=== PATIENT | female | born 1965 | race Caucasian/White ===

== ENCOUNTER → 2016-06-24 | Outpatient (CLI) | payer OTHER ==
[~2016-06-24] MED LIST: ACET-1256 PO; BUPRTAB51 PO; CGN1 PO; CHOL100010 PO; CLOZ25TA2 PO; CLR10 PO; DEXA1TAB PO; DIVA500T3 PO; FINA5TAB4 PO; FLNIN NAE; GEMF600T3 PO; MISCTAB26 PO; OMEP20CA9 PO; POLY1POW2 PO; POTA10CA28 PO; RANI300T2 PO; VITA400C15 PO
--- NOTE | 2016-06-25 13:33 | MAMMOGRAPHY REPORT ---
BILATERAL DIGITAL SCREENING MAMMOGRAM TOMOSYNTHESIS WITH CAD: 06/24/2016 CLINICAL HISTORY: Routine screening. Patient has no complaints. TECHNIQUE: Breast tomosynthesis in addition to standard 2D mammography was performed. Current study was also evaluated with a Computer Aided Detection (CAD) system. COMPARISON: Comparison is made to exams dated: 06/24/2015 mammogram, 06/22/2013 mammogram, 06/18/2014 mammogram, 06/20/2012 mammogram, 06/18/2011 mammogram, and 06/16/2010 mammogram - [facility]. BREAST COMPOSITION: There are scattered areas of fibroglandular density in both breasts. FINDINGS: There is stable nodularity in the lateral right breast. No new suspicious mass, ibm bpm architect ural distortion or cluster of microcalcifications is seen. IMPRESSION: ACR BI-RADS CATEGORY 1: NEGATIVE There is no mammographic evidence of malignancy. A 1 year screening mammogram is recommended. The p atient will receive written notification of the results. Approximately 10% of breast cancers are not detected with mammography. A negative mammographic repor t should not delay biopsy if a clinically suggestive mass is present. Ligia Euceda M.D. ay/:06/24/2016 16:50:51 Buffing Wheel Presser: Delmis COLLINS(Yeni)(M), [facility] letter sent: Normal 1/2 BI-RADS Code: ACR BI-RADS Category 1: Negative
== END | disposition home or self-care (01) ==
LOC: C.MAMM 12:26
PROVIDERS: ATTEND Internal Medicine
DX: Z12.31 Encounter for screening mammogram for malignant neoplasm of breast (principal)

== ENCOUNTER → 2017-03-02 | Outpatient (CLI) | payer OTHER ==
[2017-03-02 12:23] LABS: HEMATOCRIT 38.2 % (37-47)
[2017-03-02 12:36] LABS: ALT/SGPT 28 U/L (12-78); BLOOD UREA NITROGEN 24 mg/dl (7-18); BUN/CREATININE RATIO 23.5 (10-20); CALCIUM 9.8 mg/dl (8.5-10.1); CARBON DIOXIDE 26 mmol/L (21-32); CHLORIDE 102 mmol/L (98-107); CHOLESTEROL 167 mg/dl (0-200); GLUCOSE 89 mg/dl (70-99); POTASSIUM 4.2 mmol/L (3.5-5.1); SODIUM 136 mmol/L (136-145); TRIGLYCERIDES 112 mg/dl (0-150); VERY LOW DENSITY LIPOPROT CALC 22 mg/dl
[2017-03-02 12:41] LABS: ESTIMATED AVERAGE GLUCOSE 128 mg/dl; HA1C FLAG Normal (Normal)
[2017-03-02 12:45] LABS: ALB/GLOB RATIO 0.9 (0.9-2); ALKALINE PHOSPHATASE 107 U/L (45-117); AST/SGOT 13 U/L (15-37); CHOLESTEROL/HDL RATIO 2.3; HDL CHOLESTEROL 72 mg/dl; LDL CHOLESTEROL CALCULATED 73 mg/dl
[2017-03-02 12:46] LABS: INSULIN FASTING 19.8 mU/L (3-25)
== END | disposition home or self-care (01) ==
LOC: C.LAB1850 10:35
PROVIDERS: ATTEND Internal Medicine Endocrinology, Diabetes & Metabolism
DX: E66.01 Morbid (severe) obesity due to excess calories (principal); E25.0 Congenital adrenogenital disorders associated with enzyme deficiency; E27.9 Disorder of adrenal gland, unspecified

== ENCOUNTER → 2017-03-30 | Outpatient (CLI) | payer OTHER ==
[~2017-03-30] MED LIST changes: +BENZ-89 PO; +CHOL1TAB76 PO; +FLUT50SP45 NAE; -GEMF600T3 PO; +GEMF600T5 PO; +VTME400 PO
== END | disposition home or self-care (01) ==
LOC: C.MAMM 10:14
PROVIDERS: ATTEND Internal Medicine Endocrinology, Diabetes & Metabolism
DX: R29.890 Loss of height (principal); Z79.52 Long term (current) use of systemic steroids

== ENCOUNTER 2017-04-30 12:03 | Emergency (ER) | payer OTHER ==
[~2017-04-30] VITALS: Ht 152.4 cm; Wt 98.1 kg
[~2017-04-30 12:03] MED LIST changes: -BENZ-89 PO; -CHOL1TAB76 PO; -FLUT50SP45 NAE; +GEMF600T3 PO; -GEMF600T5 PO; -VTME400 PO
[2017-04-30 12:15] VITALS: TEMP 36.6; Ht 152.4 cm; Wt 98.1 kg
[2017-04-30] MEDS ORDERED: ACETAMINOPHEN 500 MG TAB PO STA (12:18)
[2017-04-30] MEDS ORDERED: BENZ-89 PO (12:36)
[2017-04-30] MEDS ORDERED: CHOL1TAB76 PO (12:36)
[2017-04-30] MEDS ORDERED: FLUT50SP45 NAE (12:36)
[2017-04-30] MEDS ORDERED: VTME400 PO (12:36)
--- NOTE | 2017-04-30 12:47 | DIAGNOSTIC IMAGING REPORT ---
RIGHT ANKLE 3 VIEWS HISTORY: R ankle pain COMPARISON: None. FINDINGS: There is no fracture or dislocation. Mild soft tissue swelling. No radiopaque foreign bodies. IMPRESSION: No fracture or dislocation within the right ankle. Electronically signed by: Niko Velasco M.D. 04/30/2017 12:46 PM Dictated Date/Time: 04/30/2017 12:45 PM
[2017-04-30 13:46] VITALS: BP 147/78; PULSE 89; O2SAT 95
--- NOTE | 2017-04-30 15:25 | EMERGENCY ROOM VISIT NOTE ---
History First contact with patient: 12:13 Chief Complaint: ANKLE PAIN Stated Complaint: ANKLE PAIN History of Present Illness The patient is a 51 year old female who presents to the Emergency Room via BLS ambulance with complaints of right ankle pain after she tripped while walking on a sidewalk and twisted her ankle. She denies falling or sustaining any additional injuries, including head injury, neck pain or other extremity discomfort. She did report mild lower back pain, but is not concerned regarding this pain Weightbearing worsens her ankle pain to a 7 out of 10. She denies any pain extending into the right upper leg, knee, hip or back. She also denies any pain extending into the right foot or toes. She denies paresthesias or numbness of the right lower extremity. The patient denies any prior history of right ankle injuries. Review of Systems 10 system review was performed and was negative except for pertinent positives and negatives as indicated in history of present illness Past Medical/Surgical History Medical Problems: (1) Ac Pyelonephritis Nos (2) Acute Pancreatitis (3) Bipolar Disorder, Unspecified (4) Cerebral Palsy Nos (5) Cholecystectomy (6) Colonoscopy (7) Depression (8) Fam Hx-Cardiovas Dis Nec (9) Fam Hx-Diabetes Mellitus (10) Fam Hx-Ischem Heart Dis (11) Family Hx-Malignancy Nos (12) Gastroesophageal reflux disease (13) Hirsutism (14) Hypertension Nos (15) IRRITABLE BOWEL SYNDROME (16) Mental Retardation Nos (17) Schizophrenia Nec-Unspec (18) Unsp Gastritis & Gastroduodenitis W/O Mentn Hemorg (19) Urin Tract Infection Nos Family History FH: diabetes FH: heart disease Social History Smoking Status: Never Smoker Alcohol Use: none Marital Status: single Housing Status: lives alone Occupation Status: unemployed Current/Historical Medications Scheduled Acetaminophen (Tylenol), 500 MG PO Q6HR PRN Benztropine Mesylate (Cogentin), 1 MG PO HS Bupropion (Wellbutrin-Xl), 300 MG PO QAM Cholecalciferol (D 2000), 2,000 UNITS PO DAILY Clozapine (Clozapine), 75 MG PO QPM Dexamethasone (Dexamethasone), 1 MG PO DAILY Divalproex Sodium (Depakote Er), 500 MG PO BID Finasteride (Proscar), 2.5 MG PO DAILY Fluticasone Propionate (Nasal) (Allergy Nasal [place] [address]), 2 SPRAYS TAMMY DAILY Gemfibrozil (Lopid), 600 MG PO BID Loratadine (Claritin), 10 MG PO DAILY Misc Natural Products (Ginkgo Biloba), 1 TAB PO BID Omeprazole (Prilosec), 20 MG PO DAILY Potassium Chloride (Micro-K Ext Rel), 10 MEQ PO DAILY Ranitidine (Zantac), 300 MG PO HS Tocopheryl Acet,Dl-Alpha (Vitamin E/Dl-Alpha), 400 UNITS PO DAILY Scheduled PRN Polyethylene Glycol 3350 (Bulk (Polyethylene Glycol 3350), 17 GRAMS PO DAILY PRN for Constipation Physical Exam Vital Signs Date Time Temp Pulse Resp B/P (MAP) Pulse Ox O2 Delivery O2 Flow Rate FiO2 04/30/17 13:46 89 20 147/78 95 04/30/17 12:15 36.6 104 18 149/93 94 Room Air Physical Exam CONSTITUTIONAL: Healthy and well nourished. Alert and oriented X 3 with positive affect. She does not appear in any acute distress on exam. HEENT: Normocephalic, atraumatic. Pupils equal, round and reactive. NECK: Full active range of motion without discomfort. MUSCULOSKELETAL: Examination of the right ankle shows lateral edema without ecchymosis or open wounds. She is tender over the lateral malleolus and ligament. Minimal tenderness over the deltoid ligament. Negative anterior draw. No focal tenderness to palpation of the dorsal midfoot, metatarsals, phalanges, calcaneus, Achilles tendon or proximal fibula region. Pedal pulses are intact. Patient has no tenderness to palpation through the lower lumbar spine or SI joints. Negative logroll bilaterally. Negative straight leg raise. INTEGUMENTARY: No rash or other significant dermatologic conditions noted. NEUROLOGIC: No focal neurologic deficits noted. Right foot and toes are sensory intact. Medical Decision & Procedures ER Provider Diagnostic Interpretation: My interpretation of right ankle x-rays does not show any obvious fractures, dislocation or ankle mortise asymmetry. Radiologist report is as follows: RIGHT ANKLE 3 VIEWS HISTORY: R ankle pain COMPARISON: None. FINDINGS: There is no fracture or dislocation. Mild soft tissue swelling. No radiopaque foreign bodies. IMPRESSION: No fracture or dislocation within the right ankle. Medications Administered Medications (Trade) Dose Ordered Sig/Per Route Start Time Stop Time Status Last Admin Dose Admin Acetaminophen (Tylenol Tab) 1,000 mg NOW STAT PO 04/30/17 12:18 04/30/17 12:21 DC 04/30/17 12:34 1,000 MG ED Course Patient history and physical exam were performed. Nurse's notes were reviewed. Vital signs were reviewed and normal. The patient was administered Tylenol 1 g that her request for pain. X-rays of the right ankle were normal. An ankle gel splint and walker were provided to minimize risk for further falls. She was encouraged to intermittently apply ice and elevate ankle for swelling and pain. Ibuprofen or Tylenol if needed for additional pain relief. Follow-up with orthopedics if symptoms are not improving within the next week. Both the patient and caregiver voiced understanding of all discharge instructions, and the patient rated her discomfort a 3 out of 10 at the conclusion of my exam. The patient was also examined by Dr. Gonzales, ED attending physician, who agrees with workup and plan of care. Medical Decision Medication Reconcilliation Current Medication List: was personally reviewed by me Blood Pressure Screening Patient's blood pressure: Normal blood pressure Impression Primary Impression: Right ankle sprain Departure Information Referrals Curly Zimmer DOluOOlu (PCP) Patient Instructions My [facility] Problem Qualifiers Primary Impression: Right ankle sprain Encounter type: initial encounter Involved ligament of ankle: unspecified ligament Qualified Codes: S93.401A - Sprain of unspecified ligament of right ankle, initial encounter
--- NOTE | 2017-04-30 16:50 | EMERGENCY ROOM VISIT NOTE ---
ED Visit Note First contact with patient: 12:13 I have personally evaluated this patient examined her and reviewed the pertinent labs and data. I have discussed the case with Inocencio Laura, the physician radiology assistant and agree with the plan. Please refer to the PA note. This patient injured her right ankle. She is able to ambulate without any difficulty some mild lateral tenderness. There is no tenderness of the fifth metatarsa She is neurologically and neurovascularly intact. She did not hit her head and there are no other injuries. There is no tenderness in the proximal tib-fib or knee. X-rays do not show a fracture dislocation. We'll place her in a splint that she can use for comfort and to rest and ice and elevate return if any new problems or concerns.
== END 2017-04-30 13:48 | disposition home or self-care (01) ==
LOC: EDBD 12:03 → C.EDD 12:04
DX: S93.401A Sprain of unspecified ligament of right ankle, initial encounter (principal); W18.49XA Other slipping, tripping and stumbling without falling, initial encounter; Y93.01 Activity, walking, marching and hiking; Y92.480 Sidewalk as the place of occurrence of the external cause; F31.9 Bipolar disorder, unspecified; G80.9 Cerebral palsy, unspecified; K21.9 Gastro-esophageal reflux disease without esophagitis; I10 Essential (primary) hypertension; K58.9 Irritable bowel syndrome, unspecified; F79 Unspecified intellectual disabilities; F20.9 Schizophrenia, unspecified; Z83.3 Family history of diabetes mellitus; Z82.49 Family history of ischemic heart disease and other diseases of the circulatory system

== ENCOUNTER → 2017-06-28 | Outpatient (CLI) | payer OTHER ==
[~2017-06-28] MED LIST changes: +BENZ-89 PO; -CGN1 PO; -CHOL100010 PO; +CHOL1TAB76 PO; -FLNIN NAE; +FLUT50SP45 NAE; -VITA400C15 PO; +VTME400 PO
--- NOTE | 2017-06-29 07:46 | MAMMOGRAPHY REPORT ---
BILATERAL DIGITAL SCREENING MAMMOGRAM TOMOSYNTHESIS WITH CAD: 06/28/2017 CLINICAL HISTORY: Routine screening. Patient has no complaints. TECHNIQUE: Breast tomosynthesis in addition to standard 2D mammography was performed. Current study was also evaluated with a Computer Aided Detection (CAD) system. COMPARISON: Comparison is made to exams dated: 06/18/2011 mammogram, 06/20/2012 mammogram, 06/22/2013 m ammogram, 06/18/2014 mammogram, 06/24/2015 mammogram, and 06/24/2016 mammogram - [facility] enter. BREAST COMPOSITION: There are scattered areas of fibroglandular density in both breasts. FINDINGS: No obvious new mass, architectural distortion or cluster of microcalcifications is seen. Both nipples are flat to inverted but this appearance is similar on all available prior mammograms da ting back to at least 2008, suggesting benignity. IMPRESSION: ACR BI-RADS CATEGORY 1: NEGATIVE There is no mammographic evidence of malignancy. A 1 year screening mammogram is recommended. The pa tient will receive written notification of the results. Approximately 10% of breast cancers are not detected with mammography. A negative mammographic report should not delay biopsy if a clinically suggestive mass is present. Ligia Euceda M.D. ay/:06/28/2017 12:29:48 Attending Technologist: Mariam COLLINS(Yeni)(M), [facility] Plant Production Manager: Delmis Bynum, [facility] letter sent: Normal 1/2 BI-RADS Code: ACR BI-RADS Category 1: Negative
== END | disposition home or self-care (01) ==
LOC: C.MAMM 09:12
PROVIDERS: ATTEND Internal Medicine
DX: Z12.31 Encounter for screening mammogram for malignant neoplasm of breast (principal)

== ENCOUNTER 2020-03-17 08:08 | Inpatient (IN) ==
[2020-03-17] MEDS ORDERED: ONDANSETRON INJ 2 MG/ML 2 ML VIAL IV STA (08:36)
[2020-03-17] MEDS ORDERED: HYDROmorphone INJ 0.5 MG/0.5 ML SYR IV STA (08:36)
[2020-03-17] MEDS ORDERED: PIPERACILL/TAZOBAC CONSULT ACTIVE PRN (08:38)
[2020-03-17] MEDS ORDERED: PIPERACILLIN/TAZOBACTAM 4.5 GM/120 ML BAG IV ONE (08:38)
[2020-03-17] MEDS ORDERED: SODIUM CHLORIDE 0.9% 1000ML 1,000 ML IV SCH (08:45)
[2020-03-17 08:46] LABS: Basophils # (auto) 0.02 K/uL (0-0.2); Basophils % (auto) 0.2 %; Eosinophils # (auto) 0.05 K/uL (0-0.5); Eosinophils % (auto) 0.4 %; Hematocrit (blood only) 41.1 % (37-47); Hemoglobin 13.4 g/dL (12.0-16.0); Immature Granulocytes # (auto) 0.03 K/uL (0.00-0.02); Immature Granulocytes % (auto) 0.2 %; Lymphocytes # (auto) 2.23 K/uL (1.2-3.4); Mean Corpuscular Hemoglobin 29.4 pg (25-34); Mean Corpuscular Hgb Conc 32.6 g/dL (32-36); Mean Corpuscular Volume 90.1 fL (80-100); Monocytes # (auto) 0.77 K/uL (0.11-0.59); Monocytes % (auto) 6.2 %; Platelet Count 239 K/uL (130-400); RDW Standard Deviation 45.6 fL (36.4-46.3); Red Blood Count 4.56 M/uL (4.2-5.4)
[2020-03-17 09:16] LABS: Albumin Level 3.9 gm/dl (3.4-5.0); BUN Creatinine Ratio 18.2 (10-20); Calcium 9.6 mg/dl (8.5-10.1); Creatinine Clr Calc Pharmacy 74.2 ml/min; Est GFR (African American) 82.3; Potassium 3.4 mmol/L (3.5-5.1)
[2020-03-17 09:19] LABS: Albumin Globulin Ratio 1.1 (0.9-2); Bilirubin,Total 0.6 mg/dl (0.2-1); Globulin 3.7 gm/dl (2.5-4.0); Total Protein 7.6 gm/dl (6.4-8.2)
[2020-03-17] MEDS ORDERED: IOVERSOL 100ml IV ONE (10:18)
--- NOTE | 2020-03-17 10:41 | CT Scan Report ---
ABDOMEN AND PELVIS CT WITH IV CONTRAST CT DOSE: 1277.17 mGy.cm HISTORY: Acute vomiting with epigastric abdominal pain recent EUS, vomiting, epigastric pain TECHNIQUE: Multiaxial CT images of the abdomen and pelvis were performed following the IV administrat ion of 94 cc of Optiray 320, A dose lowering technique was utilized adhering to the principles of AL SILVIO. COMPARISON STUDY: ERCP 03/15/2020, CT abdomen and pelvis 06/21/2018 FINDINGS: The imaged inferior cardiac chambers appear unremarkable. Respiratory motion artifact mildl y limits the study. Linear bibasilar atelectasis. There is no pneumatosis or pneumoperitoneum. The spleen and adrenal glands are unremarkable. Cholecystectomy. Hepatic steatosis. Patency of the he patic and portal veins. There is mild interstitial and peripancreatic stranding with small volume of free fluid within the lesser sac extending along the left pericolic gutter into the pelvis. There is homogeneous enhancement of the pancreas. No peripancreatic fluid collection, pancreatic ductal dilati on or pancreatic mass. Mild dilation of the common bile duct measuring 8 mm, likely postsurgical. No choledocholithiasis identified. Unremarkable kidneys. There is no hydronephrosis. Unremarkable urinary bladder, uterus and adnexa. No aortic aneurysm or adenopathy. No bowel obstruction or bowel wall thickening. There is mild wall thickening of the distal stomach wh ich is likely secondary to partial distention. There is a linear metallic density foreign body wire p resent within the terminal ileum extending to the ileocecal valve into the cecum measuring over 10 cm in length. The appendix appears noninflamed. Unremarkable soft tissues. 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 No acute fracture. Unchanged subcentimeter sclerotic focus of the posterior right iliac bone. Remote left L5 pars defect. IMPRESSION: 1. Edema with small volume of free fluid within the upper abdomen, notably within the lesser sac and surrounding the pancreas is suggestive of acute uncomplicated pancreatitis. 2. No drainable fluid collection or pancreatic ductal dilation. 3. Cholecystectomy with mild dilation of the common bile duct, likely postsurgical. 4. Linear metallic wire foreign body measuring over 10 cm in length within the terminal ileum, ileoce nasir valve and cecum. No evidence of perforation or bowel obstruction. 5. Hepatic steatosis. ACT 112: Negative or not required by law. The above report was generated using voice recognition software. It may contain grammatical, syntax o r spelling errors. Electronically signed by: Abe Mederos M.D. 03/17/2020 10:40 AM
[2020-03-17] MEDS ORDERED: POTASSIUM CHLORIDE / WTR 10 MEQ/100 ML PLCT IV ONE (12:58)
--- NOTE | 2020-03-17 15:38 | History & Physical Report ---
Date of Service March 17, 2020 Assessment & Plan (1) Post-ERCP acute pancreatitis: (2) Abdominal pain: Presenting on admission with worsening abdominal pain associated with nausea and vomiting. Mostly related to acute pancreatitis Lipase on admission for 4964 CT abd/pelvis dne in the ER showed edema with small volume of free fluid within the upper abdomen, notably within the lesser sac and surrounding the pancreas is suggestive of acute uncomplicated pancreatitis. Linear metallic wire foreign body measuring over 10 cm in length within the terminal ileum, ileocecal valve and cecum. Received IV fluid, Zosyn and dilaudid IV in the ER Case discussed with gastro Dr. Saavedra recommend to continue supportive therapy Continue IV hydration, Pain control and antiemetic NPO for now for bowel rest Will hold on any IV abx for now Monitor electrolyte Elevated Liver Enzymes On admission AST 58, ALT 114, and ALK 124 Will avoid hepatotoxic agents Continue monitor LFTs Hypokalemia Mostly related to vomiting Potassium 3.4 today K replaced Continue monitor BMP Tachycardia Possible related to pain and hospital setting received IVF Continue pain management Continue monitor DM type 2 Most recent Hba1c 6.4 on 12/16 Will hold metformin Will start on Insulin Novolog sliding scale Continue monitor BS Will chek Hba1c in am Elevated WBC Mostly reactive Lactate normal and pt is afebrile Received IV Zosyn on abmission Will hold an abx for now GERD Continue PPI Hirsutism Continue aldactone Depression/ anxiety Continue wellbutrin, zyprexa,benztropine Stable DVT px on SCDs due to previous admission of GI bleed CODE status FULL CODE History of Present Illness Chief Complaint: Abdominal pain associated with Nausea and vomiting Primary Care Provider: Curly Zimmer DO 54-year-old female with past medical history significant for developmental delay, congenital adrenal hyperplasia, acquired hypothyroidism, DM type 2, hypopotassemia, GERD, allergic rhinitis, hirsutism, depression with anxiety presented to the ED with C/O of severe abdominal pain associated with Nausea and Vomiting. Pt recently had Upper GI endoscopy and ERCP with stent placement on 03/15/20 for epigastric abdominal pain and abnormal liver enzymes. After the procedure she discharged home. Then later she started To have severe abdominal pain mostly located in the left upper quadrant abdomen and then radiated to her back. She described the pain as an achy and constant. She has been having recurrent episode of vomiting. She said everything she eats that she threw up. Denies any chest pain, palpitation, dizziness, shortness of breath, chills, and fever or any recent exposure to anyone tested positive for COVID-19. She said that she had some diarrhea with stool color was green. She said that she has not been eating anything for the past 2 days. In the ER she was found to have elevated lipase, alkaline phosphatase, AST and ALT. CT abd/pelvis dne in the ER showed edema with small volume of free fluid within the upper abdomen, notably within the lesser sac and surrounding the pancreas is suggestive of acute uncomplicated pancreatitis. Linear metallic wire foreign body measuring over 10 cm in length within the terminal ileum, ileocecal valve and cecum. No evidence of perforation or bowel obstruction. Received IV fluids and IV Dilaudid in the ER that helps with the pain. Allergies Allergy/AdvReac Type Severity Reaction Status Date / Time No Known Drug Allergies Allergy Verified 03/17/20 08:54 Home Medications Medication Instructions Recorded Confirmed Type acetaminophen 325 mg tablet 325 mg PO Q6H PRN 01/19/19 03/17/20 History benztropine 1 mg tablet 1 mg PO PM 01/19/19 03/17/20 History bupropion HCl 300 mg 24 hr tablet, 300 mg PO QAM 01/19/19 03/17/20 History extended release loratadine 10 mg tablet 10 mg PO DAILY 01/19/19 03/17/20 History olanzapine 5 mg tablet 5 mg PO QPM 01/19/19 03/17/20 History omeprazole magnesium 20 mg 20 mg PO QAM 01/19/19 03/17/20 History capsule,delayed release pyridoxine (vitamin B6) 200 mg 200 mg PO QAM 01/19/19 03/17/20 History tablet,extended release spironolactone 50 mg tablet 50 mg PO BID #180 tab 09/01/19 03/17/20 Rx cholecalciferol (vitamin D3) 1,000 unit PO QAM 03/12/20 03/17/20 History levothyroxine 100 mcg PO DAILY 03/15/20 03/17/20 History albuterol sulfate [Ventolin HFA] 1 inh INHALATION QID 03/17/20 03/17/20 History furosemide 20 mg PO DAILY 03/17/20 03/17/20 History loratadine [Claritin] 10 mg PO DAILY 03/17/20 03/17/20 History metformin 1,000 mg PO BID 03/17/20 03/17/20 History vitamin E 600 unit PO DAILY 03/17/20 03/17/20 History Past Med/Surg History Medical History Allergic rhinitis Anemia Anxiety Asthma RARE RES. INH Bipolar disorder Depression Diverticular disease GERD (gastroesophageal reflux disease) GI bleed PT UNAWARE Russ's thyroiditis Hypertension Hypothyroidism Intellectual disability Poor historian Pre-diabetes Surgical History H/O colonoscopy H/O endoscopy History of tooth extraction Hx laparoscopic cholecystectomy Family History Father Coronary heart disease Social History Smoking Status: Never smoker Second Hand Exposure: No; Hx Alcohol Use: No Hx Substance Use: No Preferred Language: Taiwanese Communication Ability: Impaired Interpretative Dancer Required: No Beliefs That Will Affect Care: None Current Living Situation: Alone Current [facility] Situation Comment[facility] Skills of [place] PA assist with appoint Feels Safe at Home: Yes Assistive Devices: Denture - Upper, Denture - Lower and Walker Review of Systems Review of Systems: All systems reviewed & are unremarkable except as noted in HPI & below Physical Exam Physical Exam: General- alert and oriented Head- atraumatic Eyes- PERRL, anicteric ENT- oropharynx clear Neck- supple, no JVD, no adenopathy, carotids +2/2, no bruits appreciated Lungs- clear to auscultation and percussion Heart-+tachycardia, No murmur Abdomen- normal bowel sounds, soft, mild diffuse discomfort, no masses no distension Extremities- no pretibial edema, no erythema Neuro- alert, oriented x 3; PERRL,no facial palsy; no dysarthria; non focal Skin- warm & dry, +hirsutism Results & Data Results & Data ([facility]) Vital Signs (Past 12 Hours) Vital Signs Temp Pulse Resp BP Pulse Ox 03/17/20 14:30 105 H 21 91 03/17/20 14:15 104 H 22 91 12/20/20 14:01 103 H 22 91 12/20/20 14:00 104 H 24 102/86 91 03/17/20 13:45 103 H 22 92 03/17/20 13:30 108 H 24 91 03/17/20 13:15 105 H 20 91 03/17/20 13:01 105 H 22 92 03/17/20 13:00 104 H 25 H 141/62 H 91 03/17/20 12:45 102 H 20 92 03/17/20 12:30 105 H 20 93 03/17/20 12:15 103 H 19 91 03/17/20 12:01 106 H 21 91 03/17/20 12:00 106 H 24 121/86 91 03/17/20 11:45 107 H 21 92 03/17/20 11:30 106 H 20 91 03/17/20 11:15 105 H 21 91 03/17/20 11:01 105 H 21 93 03/17/20 11:00 108 H 22 122/75 92 03/17/20 10:45 104 H 18 91 03/17/20 10:30 106 H 25 H 93 03/17/20 10:25 114 H 26 H 91 03/17/20 10:01 109 H 24 92 03/17/20 10:00 105 H 22 134/99 93 03/17/20 09:45 106 H 21 92 03/17/20 09:43 104 H 19 141/87 H 90 03/17/20 09:30 108 H 22 141/87 H 92 03/17/20 09:15 106 H 21 91 03/17/20 09:00 112 H 20 90 03/17/20 08:55 109 H 22 129/86 93 03/17/20 08:45 113 H 29 H 03/17/20 08:36 114 H 93 03/17/20 08:12 37.5 C 139 H 20 140/90 95 Diagnostic Findings ABDOMEN AND PELVIS CT WITH IV CONTRAST CT DOSE: 1277.17 mGy.cm HISTORY: Acute vomiting with epigastric abdominal pain recent EUS, vomiting, epigastric pain TECHNIQUE: Multiaxial CT images of the abdomen and pelvis were performed following the IV administration of 94 cc of Optiray 320, A dose lowering technique was utilized adhering to the principles of ALARA. COMPARISON STUDY: ERCP 03/15/2020, CT abdomen and pelvis 06/21/2018 FINDINGS: The imaged inferior cardiac chambers appear unremarkable. Respiratory motion artifact mildly limits the study. Linear bibasilar atelectasis. There is no pneumatosis or pneumoperitoneum. The spleen and adrenal glands are unremarkable. Cholecystectomy. Hepatic steatosis. Patency of the hepatic and portal veins. There is mild interstitial and peripancreatic stranding with small volume of free fluid within the lesser sac extending along the left pericolic gutter into the pelvis. There is homogeneous enhancement of the pancreas. No peripancreatic fluid collection, pancreatic ductal dilation or pancreatic mass. Mild dilation of the common bile duct measuring 8 mm, likely postsurgical. No choledocholithiasis identified. Unremarkable kidneys. There is no hydronephrosis. Unremarkable urinary bladder, uterus and adnexa. No aortic aneurysm or adenopathy. No bowel obstruction or bowel wall thickening. There is mild wall thickening of the distal stomach which is likely secondary to partial distention. There is a linear metallic density foreign body wire present within the terminal ileum extending to the ileocecal valve into the cecum measuring over 10 cm in length. The appendix appears noninflamed. Unremarkable soft tissues. 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 No acute fracture. Unchanged subcentimeter sclerotic focus of the posterior right iliac bone. Remote left L5 pars defect. IMPRESSION: 1. Edema with small volume of free fluid within the upper abdomen, notably within the lesser sac and surrounding the pancreas is suggestive of acute uncomplicated pancreatitis. 2. No drainable fluid collection or pancreatic ductal dilation. 3. Cholecystectomy with mild dilation of the common bile duct, likely postsurgical. 4. Linear metallic wire foreign body measuring over 10 cm in length within the terminal ileum, ileocecal valve and cecum. No evidence of perforation or bowel obstruction. 5. Hepatic steatosis. ACT 112: Negative or not required by law. The above report was generated using voice recognition software. It may contain grammatical, syntax or spelling errors. Electronically signed by: Abe Mederos M.D. 03/17/2020 10:40 AM Dictated: 03/17/20 1025Transcribed: 03/17/20 1025
--- NOTE | 2020-03-17 15:48 | Emergency Department Note ---
History of Present Illness General Chief complaint: Vomiting Stated complaint: VOMITING Source: patient and RN notes reviewed Mode of arrival: ambulatory Limitations: no limitations History of Present Illness Provider complaint: Vomiting, epigastric abdominal pain, recent EGD Maximum Pain Intensity: 10 This patient is a 54-year-old female who presents to the emergency department with complaints of vomiting, low-grade fever and epigastric abdominal pain. She states 2 days ago she had an EGD and EUS performed by Dr. Saavedra. She resides at [facility] and has a caregiver at the bedside. Patient states she developed some epigastric pain over the last 12 to 24 hours and had an episode of vomiting. She has had a decreased p.o. intake. She denies any blood in her vomit. She has had recurrent diarrhea which is part of the reason they performed the EGD. She states the diarrhea is dark in nature but has not changed in consistency since the procedure was performed. She denies any chest pain, shortness of breath or known Covid exposures. Home Medications Medication Instructions Recorded Confirmed Type acetaminophen 325 mg tablet 325 mg PO Q6H PRN 01/19/19 03/17/20 History benztropine 1 mg tablet 1 mg PO PM 01/19/19 03/17/20 History bupropion HCl 300 mg 24 hr tablet, 300 mg PO QAM 01/19/19 03/17/20 History extended release loratadine 10 mg tablet 10 mg PO DAILY 01/19/19 03/17/20 History olanzapine 5 mg tablet 5 mg PO QPM 01/19/19 03/17/20 History omeprazole magnesium 20 mg 20 mg PO QAM 01/19/19 03/17/20 History capsule,delayed release pyridoxine (vitamin B6) 200 mg 200 mg PO QAM 01/19/19 03/17/20 History tablet,extended release spironolactone 50 mg tablet 50 mg PO BID #180 tab 09/01/19 03/17/20 Rx cholecalciferol (vitamin D3) 1,000 unit PO QAM 03/12/20 03/17/20 History levothyroxine 100 mcg PO DAILY 03/15/20 03/17/20 History albuterol sulfate [Ventolin HFA] 1 inh INHALATION QID 03/17/20 03/17/20 History furosemide 20 mg PO DAILY 03/17/20 03/17/20 History loratadine [Claritin] 10 mg PO DAILY 03/17/20 03/17/20 History metformin 1,000 mg PO BID 03/17/20 03/17/20 History vitamin E 600 unit PO DAILY 03/17/20 03/17/20 History Allergies Allergy/AdvReac Type Severity Reaction Status Date / Time No Known Drug Allergies Allergy Verified 03/17/20 08:54 Past Med/Surg History Medical History Allergic rhinitis Anemia Anxiety Asthma RARE RES. INH Bipolar disorder Depression Diverticular disease GERD (gastroesophageal reflux disease) GI bleed PT UNAWARE Russ's thyroiditis Hypertension Hypothyroidism Intellectual disability Poor historian Pre-diabetes Surgical History H/O colonoscopy H/O endoscopy History of tooth extraction Hx laparoscopic cholecystectomy Family History Father Coronary heart disease Social History Smoking Status: Never smoker Second Hand Exposure: No; Hx Alcohol Use: No Hx Substance Use: No Preferred Language: Latvian Communication Ability: Effective Precision Grinder External Required: No Beliefs That Will Affect Care: None Current Living Situation: Alone Current Living Situation Comment: appartment Other Information That Helps Us Care for You: No Feels Safe at Home: Yes Safety Concerns: Feels Safe At This Time Assistive Devices: Walker Assistive Devices Comment: dentures at home Review of Systems See HPI for pertinent positives & negatives. and A total of 10 systems reviewed and were otherwise negative Physical Exam Vital Signs Vital Signs - 24 hr 03/17/20 08:12 03/17/20 08:36 03/17/20 08:45 Temperature 37.5 C Temperature Source Oral Pulse Rate 139 H 114 H 113 H Pulse Rate from SpO2 Sensor Respiratory Rate 20 29 H Respiratory Effort / Characteristics Non-Labored Respiratory Depth Normal Blood Pressure 140/90 Blood Pressure Mean 106 Pulse Oximetry 95 93 Oxygen Delivery Method Room Air Room Air Sepsis Recent Fever Within 48 Hours No Sepsis New/Unexplained Change in Mental Status N/A Sepsis Action Taken by Nursing No Action Required 03/17/20 08:55 03/17/20 09:00 03/17/20 09:15 Temperature Temperature Source Pulse Rate 109 H 112 H 106 H Pulse Rate from SpO2 Sensor 112 H 112 H 99 H Respiratory Rate 22 20 21 Respiratory Effort / Characteristics Respiratory Depth Blood Pressure 129/86 Blood Pressure Mean 106 Pulse Oximetry 93 90 91 Oxygen Delivery Method Sepsis Recent Fever Within 48 Hours Sepsis New/Unexplained Change in Mental Status Sepsis Action Taken by Nursing 03/17/20 09:30 03/17/20 09:43 03/17/20 09:45 Temperature Temperature Source Pulse Rate 108 H 104 H 106 H Pulse Rate from SpO2 Sensor 103 H 100 H 106 H Respiratory Rate 22 19 21 Respiratory Effort / Characteristics Respiratory Depth Blood Pressure 141/87 H 141/87 H Blood Pressure Mean 105 98 Pulse Oximetry 92 90 92 Oxygen Delivery Method Sepsis Recent Fever Within 48 Hours Sepsis New/Unexplained Change in Mental Status Sepsis Action Taken by Nursing 03/17/20 10:00 03/17/20 10:01 03/17/20 10:25 Temperature Temperature Source Pulse Rate 105 H 109 H 114 H Pulse Rate from SpO2 Sensor 105 H 108 H 114 H Respiratory Rate 22 24 26 H Respiratory Effort / Characteristics Respiratory Depth Blood Pressure 134/99 Blood Pressure Mean 112 Pulse Oximetry 93 92 91 Oxygen Delivery Method Sepsis Recent Fever Within 48 Hours Sepsis New/Unexplained Change in Mental Status Sepsis Action Taken by Nursing 03/17/20 10:30 03/17/20 10:45 03/17/20 11:00 Temperature Temperature Source Pulse Rate 106 H 104 H 108 H Pulse Rate from SpO2 Sensor 107 H 104 H 108 H Respiratory Rate 25 H 18 22 Respiratory Effort / Characteristics Respiratory Depth Blood Pressure 122/75 Blood Pressure Mean 96 Pulse Oximetry 93 91 92 Oxygen Delivery Method Sepsis Recent Fever Within 48 Hours Sepsis New/Unexplained Change in Mental Status Sepsis Action Taken by Nursing 03/17/20 11:01 03/17/20 11:15 03/17/20 11:30 Temperature Temperature Source Pulse Rate 105 H 105 H 106 H Pulse Rate from SpO2 Sensor 106 H 105 H 101 H Respiratory Rate 21 21 20 Respiratory Effort / Characteristics Respiratory Depth Blood Pressure Blood Pressure Mean Pulse Oximetry 93 91 91 Oxygen Delivery Method Sepsis Recent Fever Within 48 Hours Sepsis New/Unexplained Change in Mental Status Sepsis Action Taken by Nursing 03/17/20 11:45 03/17/20 12:00 03/17/20 12:01 Temperature Temperature Source Pulse Rate 107 H 106 H 106 H Pulse Rate from SpO2 Sensor 101 H 100 H 106 H Respiratory Rate 21 24 21 Respiratory Effort / Characteristics Respiratory Depth Blood Pressure 121/86 Blood Pressure Mean 96 Pulse Oximetry 92 91 91 Oxygen Delivery Method Sepsis Recent Fever Within 48 Hours Sepsis New/Unexplained Change in Mental Status Sepsis Action Taken by Nursing 03/17/20 12:15 03/17/20 12:30 03/17/20 12:45 Temperature Temperature Source Pulse Rate 103 H 105 H 102 H Pulse Rate from SpO2 Sensor 104 H 105 H 101 H Respiratory Rate 19 20 20 Respiratory Effort / Characteristics Respiratory Depth Blood Pressure Blood Pressure Mean Pulse Oximetry 91 93 92 Oxygen Delivery Method Sepsis Recent Fever Within 48 Hours Sepsis New/Unexplained Change in Mental Status Sepsis Action Taken by Nursing 03/17/20 13:00 03/17/20 13:01 03/17/20 13:15 Temperature Temperature Source Pulse Rate 104 H 105 H 105 H Pulse Rate from SpO2 Sensor 104 H 104 H 105 H Respiratory Rate 25 H 22 20 Respiratory Effort / Characteristics Respiratory Depth Blood Pressure 141/62 H Blood Pressure Mean 84 Pulse Oximetry 91 92 91 Oxygen Delivery Method Sepsis Recent Fever Within 48 Hours Sepsis New/Unexplained Change in Mental Status Sepsis Action Taken by Nursing 03/17/20 13:30 03/17/20 13:45 03/17/20 14:00 Temperature Temperature Source Pulse Rate 108 H 103 H 104 H Pulse Rate from SpO2 Sensor 91 H 103 H 103 H Respiratory Rate 24 22 24 Respiratory Effort / Characteristics Respiratory Depth Blood Pressure 102/86 Blood Pressure Mean 92 Pulse Oximetry 91 92 91 Oxygen Delivery Method Sepsis Recent Fever Within 48 Hours Sepsis New/Unexplained Change in Mental Status Sepsis Action Taken by Nursing 03/17/20 14:01 03/17/20 14:15 03/17/20 14:30 Temperature Temperature Source Pulse Rate 103 H 104 H 105 H Pulse Rate from SpO2 Sensor 103 H 103 H 105 H Respiratory Rate 22 22 21 Respiratory Effort / Characteristics Respiratory Depth Blood Pressure Blood Pressure Mean Pulse Oximetry 91 91 91 Oxygen Delivery Method Sepsis Recent Fever Within 48 Hours Sepsis New/Unexplained Change in Mental Status Sepsis Action Taken by Nursing Vital signs reviewed. General: Well-appearing 54-year-old female, in no significant distress. HEENT: No scleral icterus, PERRLA, neck supple. Atraumatic. Cardiovascular: Regular rate and rhythm, no extra sounds. Pulmonary: Clear to auscultation bilaterally, normal work of breathing. Abdomen: Soft, obese, epigastric abdominal tenderness, nondistended, positive bowel sounds. Musculoskeletal: Atraumatic, no peripheral edema. Neurologic: Patient awake alert and oriented x 3 Skin: Warm, dry, no rash Course Administered Medications Benztropine Mesylate (Benztropine Mesylate 1 Mg Tab) 1 mg PO PM [facility] Stop: 04/16/20 20:59 Last Admin: 03/17/20 20:04 Dose: 1 mg Documented by: [id number] Bupropion HCl (Bupropion Xl 300 Mg Tabcr) 300 mg PO QAM JACINTA Stop: 04/17/20 08:59 Last Admin: 03/18/20 08:49 Dose: 300 mg Documented by: [id number] Furosemide (Furosemide 20 Mg Tab) 20 mg PO DAILY JACINTA Stop: 04/17/20 08:59 Last Admin: 03/18/20 10:00 Dose: 20 mg Documented by: [id number] Lactated Ringer's (Lr) 1,000 mls @ 125 mls/hr IV .Q8H [facility] Stop: 04/16/20 16:43 Last Admin: 03/18/20 08:56 Dose: 125 mls/hr Documented by: [id number] Infusion: 03/18/20 07:54 Dose: 125 mls/hr Documented by: [id number] Admin: 03/17/20 23:54 Dose: 125 mls/hr Documented by: [id number] Infusion: 03/17/20 23:54 Dose: 125 mls/hr Documented by: [id number] Admin: 03/17/20 17:55 Dose: 125 mls/hr Documented by: [id number] Insulin Aspart (Insulin Aspart 100 Units/Ml 3 Ml Pen) 0 units SC Q6 [facility]AC[facility] Stop: 04/17/20 00:00 Last Admin: 03/18/20 16:49 Dose: Not Given Documented by: [id number] Admin: 03/18/20 11:45 Dose: Not Given Documented by: [id number] Cosigned by: [id number] Admin: 03/18/20 06:01 Dose: Not Given Documented by: [id number] Admin: 03/18/20 00:27 Dose: Not Given Documented by: [id number] Levothyroxine Sodium (Levothyroxine Sodium 100 Mcg Tablet) 100 mcg PO DAILYBB [facility] Stop: 04/17/20 06:29 Last Admin: 03/18/20 05:53 Dose: 100 mcg Documented by: [id number] Loratadine (Loratadine 10 Mg Tab) 10 mg PO DAILY [facility] Stop: 04/17/20 08:59 Last Admin: 03/18/20 08:48 Dose: 10 mg Documented by: [id number] Morphine Sulfate (Morphine Sulfate 2 Mg/Ml Carp) 2 mg IV Q3H PRN PRN Reason: Pain Stop: 03/31/20 16:43 Last Admin: 03/18/20 13:44 Dose: 2 mg Documented by: [id number] Admin: 03/17/20 20:06 Dose: 2 mg Documented by: [id number] Olanzapine (Olanzapine 5 Mg Tablet) 5 mg PO QPM [facility] Stop: 04/16/20 20:59 Last Admin: 03/17/20 20:05 Dose: 5 mg Documented by: [id number] Pantoprazole Sodium (Pantoprazole 40 Mg Tab) 40 mg PO QAM [facility] Stop: 04/17/20 08:59 Last Admin: 03/18/20 08:48 Dose: 40 mg Documented by: [id number] Pyridoxine HCl (Pyridoxine Hcl 50 Mg Tab) 100 mg PO QAM [facility]; Protocol Stop: 04/17/20 08:59 Last Admin: 03/18/20 08:48 Dose: 100 mg Documented by: [id number] Spironolactone (Spironolactone 25 Mg Tab) 50 mg PO BID [facility] Stop: 04/16/20 20:59 Last Admin: 03/18/20 08:47 Dose: 50 mg Documented by: [id number] Admin: 03/17/20 20:05 Dose: 50 mg Documented by: [id number] Vitamin D (Cholecalciferol 1,000 Units 25 Mcg Tab) 1,000 units PO QAM [facility] Stop: 04/17/20 08:59 Last Admin: 03/18/20 08:48 Dose: 1,000 units Documented by: [id number] Vitamin E (Tocopheryl, Dl-Alpha 100 Units Cap) 600 units PO DAILY [facility] Stop: 04/17/20 08:59 Last Admin: 03/18/20 08:49 Dose: 600 units Documented by: [id number] Discontinued Medications Hydromorphone HCl (Hydromorphone Inj 0.5 Mg/0.5 Ml Syr) 0.5 mg IV NOW STA Stop: 03/17/20 08:37 Last Admin: 03/17/20 08:55 Dose: 0.5 mg Documented by: [id number] Sodium Chloride (Nss 1000ml) 1,000 mls @ 999 mls/hr IV .Q1H1M [facility] Stop: 03/17/20 09:45 Last Infusion: 03/17/20 10:03 Dose: 0 mls/hr Documented by: [id number] Admin: 03/17/20 08:55 Dose: 999 mls/hr Documented by: [id number] Piperacillin Sod/Tazobactam Sod (Zosyn) 4.5 gm in 120 mls @ 240 mls/hr IV NOW ONE Stop: 03/17/20 09:07 Last Infusion: 03/17/20 10:03 Dose: 0 mls/hr Documented by: [id number] Admin: 03/17/20 09:24 Dose: 240 mls/hr Documented by: [id number] Potassium Chloride (K [place] / Wtr) 10 meq in 100 mls @ 100 mls/hr IV ONE ONE Stop: 03/17/20 13:57 Last Infusion: 03/17/20 14:39 Dose: 0 mls/hr Documented by: [id number] Admin: 03/17/20 13:20 Dose: 100 mls/hr Documented by: [id number] Insulin Aspart (Insulin Aspart 100 Units/Ml 3 Ml Pen) 0 units SC ACHS [facility] Stop: 04/16/20 16:43 Last Admin: 03/17/20 21:05 Dose: Not Given Documented by: [id number] Admin: 03/17/20 18:40 Dose: Not Given Documented by: [id number] Ioversol (Ioversol 100ml) 94 ml IV ONCE ONE Stop: 03/17/20 10:19 Last Admin: 03/17/20 10:18 Dose: 94 ml Documented by: [id number] Ondansetron HCl (Ondansetron Inj 2 Mg/Ml 2 Ml Vial) 4 mg IV NOW STA Stop: 03/17/20 08:37 Last Admin: 03/17/20 08:55 Dose: 4 mg Documented by: [id number] Potassium Chloride (Potassium Chloride Crtab 20 Meq Tabcr) 40 meq PO ONE ONE Stop: 03/18/20 09:46 Last Admin: 03/18/20 10:00 Dose: 40 meq Documented by: [id number] Medical Decision Making Differential Diagnosis The differential diagnosis of this patient's presentation includes biliary pathology, pancreatitis, cholangitis, peptic ulcer disease, viral etiology, small bowel obstruction, dehydration, Covid, GI bleed, UTI amongst other etiologies. Medical Records Attestation: I reviewed the patient's medical records. Home Medications Current Medication List: was personally reviewed by me Laboratory Data Attestation: I reviewed the patient's lab results. Result diagrams: 03/18/20 05:41 03/18/20 05:41 Lab Results 03/17/20 03/17/20 03/17/20 Range/Units 08:30 08:30 09:10 WBC 12.40 H (4.8-10.8) K/uL RBC 4.56 (4.2-5.4) M/uL Hgb 13.4 (12.0-16.0) g/dL Hct 41.1 (37-47) % MCV 90.1 (80-100) fL MCH 29.4 (25-34) pg MCHC 32.6 (32-36) g/dL RDW Std Deviation 45.6 (36.4-46.3) fL RDW Coeff of Sukumar 14.0 (11.5-14.5) % Plt Count 239 (130-400) K/uL MPV 11.0 H (7.4-10.4) fL Immature Gran % (Auto) 0.2 % Neut % (Auto) 75.0 % Lymph % (Auto) 18.0 % [place] % (Auto) 6.2 % Eos % (Auto) 0.4 % Baso % (Auto) 0.2 % Neut # (Auto) 9.30 H (1.4-6.5) K/uL Lymph # (Auto) 2.23 (1.2-3.4) K/uL [place] # (Auto) 0.77 H (0.11-0.59) K/uL Eos # (Auto) 0.05 (0-0.5) K/uL Baso # (Auto) 0.02 (0-0.2) K/uL Immature Gran # (Auto) 0.03 H (0.00-0.02) K/uL Sodium 138 (136-145) mmol/L Potassium 3.4 L (3.5-5.1) mmol/L Chloride 104 (98-107) mmol/L Carbon Dioxide 26 (21-32) mmol/L Anion Gap 8.0 (3-11) BUN 17 (7-18) mg/dl Creatinine 0.91 (0.6-1.2) mg/dl Est Cr Clr Drug Dosing 74.2 ml/min Est GFR ( Amer) 82.3 Est GFR (Non-Af Amer) 71.0 BUN/Creatinine Ratio 18.2 (10-20) Glucose 123 H (70-99) mg/dl Lactate 1.4 (0.4-2.0) mmol/L Calcium 9.6 (8.5-10.1) mg/dl Total Bilirubin 0.6 (0.2-1) mg/dl AST 58 H (15-37) U/L ALT 114 H (12-78) U/L Alkaline Phosphatase 124 H (45-117) U/L Total Protein 7.6 (6.4-8.2) gm/dl Albumin 3.9 (3.4-5.0) gm/dl Globulin 3.7 (2.5-4.0) gm/dl Albumin/Globulin Ratio 1.1 (0.9-2) Lipase 4964 H (73-393) U/L Imaging Data Radiologist's Impression: ABDOMEN AND PELVIS CT WITH IV CONTRAST CT DOSE: 1277.17 mGy.cm HISTORY: Acute vomiting with epigastric abdominal pain recent EUS, vomiting, epigastric pain TECHNIQUE: Multiaxial CT images of the abdomen and pelvis were performed following the IV administration of 94 cc of Optiray 320, A dose lowering technique was utilized adhering to the principles of ALARA. COMPARISON STUDY: ERCP 03/15/2020, CT abdomen and pelvis 06/21/2018 FINDINGS: The imaged inferior cardiac chambers appear unremarkable. Respiratory motion artifact mildly limits the study. Linear bibasilar atelectasis. There is no pneumatosis or pneumoperitoneum. The spleen and adrenal glands are unremarkable. Cholecystectomy. Hepatic steatosis. Patency of the hepatic and portal veins. There is mild interstitial and peripancreatic stranding with small volume of free fluid within the lesser sac extending along the left pericolic gutter into the pelvis. There is homogeneous enhancement of the pancreas. No peripancreatic fluid collection, pancreatic ductal dilation or pancreatic mass. Mild dilation of the common bile duct measuring 8 mm, likely postsurgical. No choledocholithiasis identified. Unremarkable kidneys. There is no hydronephrosis. Unremarkable urinary bladder, uterus and adnexa. No aortic aneurysm or adenopathy. No bowel obstruction or bowel wall thickening. There is mild wall thickening of the distal stomach which is likely secondary to partial distention. There is a linear metallic density foreign body wire present within the terminal ileum extending to the ileocecal valve into the cecum measuring over 10 cm in length. The appendix appears noninflamed. Unremarkable soft tissues. 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 No acute fracture. Unchanged subcentimeter sclerotic focus of the posterior right iliac bone. Remote left L5 pars defect. IMPRESSION: 1. Edema with small volume of free fluid within the upper abdomen, notably within the lesser sac and surrounding the pancreas is suggestive of acute uncomplicated pancreatitis. 2. No drainable fluid collection or pancreatic ductal dilation. 3. Cholecystectomy with mild dilation of the common bile duct, likely posts urgical. 4. Linear metallic wire foreign body measuring over 10 cm in length within the terminal ileum, ileocecal valve and cecum. No evidence of perforation or bowel obstruction. 5. Hepatic steatosis. ACT 112: Negative or not required by law. The above report was generated using voice recognition software. It may contain grammatical, syntax or spelling errors. Electronically signed by: Abe Mederos M.D. 03/17/2020 10:40 AM Dictated: 03/17/20 1025Transcribed: 03/17/20 1025 ECG Data Attestation: I personally reviewed and interpreted this ECG as follows: Indication: + vomiting Rate (beats per minute): 98 Rhythm: + sinus with SA ECG Intervals/blocks: + Normal QT-c ECG [place]: + Normal ECG ST segments: + Nonspecific ST abnormalities ECG Findings: + Q waves (Anterior); no PACs and no PVCs Blood Pressure Blood Pressure Findings: Normal blood pressure Blood Pressure Disposition: did not require urgent referral MDM Narrative This patient was evaluated and appeared to be in no significant distress. IV access was obtained and laboratory work was drawn. Patient was hydrated with normal saline solution, given IV Dilaudid and Zofran for her discomfort. CT imaging of the abdomen pelvis was ordered. Patient's laboratory work reveals an elevated lipase at just under 5000. Patient's lactate is normal with a WBC of 11.92. CT imaging reveals an acute uncomplicated pancreatitis with no drainable fluid collection observed. It does appear that the patient's stent has passed into the bowel. Patient was medicated with Zosyn 4.5 g IV due to the recent instrumentation of the biliary tree. I did speak with the patient and her caregiver at the bedside as well as her sister via telephone. They have expressed understanding of the findings and plan for admission. [facility]. Impression & Plan Acute pancreatitis, H/O esophagogastroduodenoscopy Discharge Plan Visit Data Chief Complaint: Vomiting Stated Complaint: VOMITING ED Provider: Zandra Padilla Discharge Problem: Acute pancreatitis, H/O esophagogastroduodenoscopy Patient Disposition: Admitted As Inpatient Discharge Instructions Interventions: ED Discharge Assessment Last Done: 03/17/20 15:48
[2020-03-17] MEDS ORDERED: ONDANSETRON INJ 2 MG/ML 2 ML VIAL IV PRN (16:44)
[2020-03-17] MEDS ORDERED: ALBUTEROL HFA 8 GM INHALER INH PRN (16:44)
[2020-03-17] MEDS ORDERED: GLUCOSE 10 TABS/TUBE PO PRN (16:44)
[2020-03-17] MEDS ORDERED: GLUCAGON FOR INJ 1 MG VIAL SQ PRN (16:44)
[2020-03-17] MEDS ORDERED: GLUCOSE 40% GEL 15 GM TUBE PO PRN (16:44)
[2020-03-17] MEDS ORDERED: CARBOHYDRATES FOR HYPOGLYCEMIA PO PRN (16:44)
[2020-03-17] MEDS ORDERED: DEXTROSE 50% 50 ML SYRINGE IV PRN (16:44)
[2020-03-17] MEDS: LACTATED RINGER'S 1,000 ML IV SCH ×2 (17:55→23:54)
[2020-03-17] MEDS: INSULIN ASPART 100 UNITS/ML 3 ML PEN SC SCH ×2 (18:40→21:05)
[2020-03-17] MEDS: BENZTROPINE MESYLATE 1 MG TAB PO SCH (20:04)
[2020-03-17] MEDS: OLANZapine 5 MG TABLET PO SCH (20:05)
[2020-03-17] MEDS: SPIRONOLACTONE 25 MG TAB PO SCH (20:05)
[2020-03-17] MEDS: MoRPHine SULFATE 2 MG/ML CARP IV PRN (20:06)
[2020-03-18] MEDS: INSULIN ASPART 100 UNITS/ML 3 ML PEN SC SCH ×4 (00:27→16:49)
[2020-03-18] MEDS: LEVOTHYROXINE SODIUM 100 MCG TABLET PO SCH (05:53)
[2020-03-18 06:34] LABS: Hematocrit (blood only) 34.4 % (37-47); Hemoglobin 11.3 g/dL (12.0-16.0); Mean Corpuscular Hemoglobin 29.7 pg (25-34); Mean Corpuscular Hgb Conc 32.8 g/dL (32-36); Mean Corpuscular Volume 90.5 fL (80-100); Mean Platelet Volume 11.5 fL (7.4-10.4); Platelet Count 206 K/uL (130-400); RDW Coefficient of Variation 14.1 % (11.5-14.5); RDW Standard Deviation 47.1 fL (36.4-46.3); White Blood Count 11.92 K/uL (4.8-10.8)
[2020-03-18 07:09] LABS: Albumin Globulin Ratio 0.8 (0.9-2); Albumin Level 2.8 gm/dl (3.4-5.0); BUN Creatinine Ratio 20.5 (10-20); Bilirubin,Total 0.6 mg/dl (0.2-1); Calcium 8.2 mg/dl (8.5-10.1); Creatinine Clr Calc Pharmacy 121.6 ml/min; Est GFR (African American) 120.3; Est GFR (Non-African American) 103.8; Globulin 3.3 gm/dl (2.5-4.0); Potassium 3.2 mmol/L (3.5-5.1); Total Protein 6.1 gm/dl (6.4-8.2)
[2020-03-18 07:52] LABS: Estimated Average Glucose 131 mg/dl; Hemoglobin A1C 6.2 % (4.5-5.6)
[2020-03-18] MEDS: SPIRONOLACTONE 25 MG TAB PO SCH ×2 (08:47→20:28)
[2020-03-18] MEDS: LORATADINE 10 MG TAB PO SCH (08:48)
[2020-03-18] MEDS: PANTOprazole 40 MG TAB PO SCH (08:48)
[2020-03-18] MEDS: CHOLECALCIFEROL 1,000 UNITS 25 MCG TAB PO SCH (08:48)
[2020-03-18] MEDS: PYRIDOXINE HCL 50 MG TAB PO SCH (08:48)
[2020-03-18] MEDS: TOCOPHERYL, DL-ALPHA 100 UNITS CAP PO SCH (08:49)
[2020-03-18] MEDS: buPROPion XL 300 MG TABCR PO SCH (08:49)
[2020-03-18] MEDS: LACTATED RINGER'S 1,000 ML IV SCH ×2 (08:56→16:57)
[2020-03-18] MEDS ORDERED: FUROSEMIDE 20 MG TAB PO SCH (09:00)
[2020-03-18] MEDS ORDERED: POTASSIUM CHLORIDE CRTAB 20 MEQ TABCR PO ONE (09:45)
--- NOTE | 2020-03-18 12:21 | Electrocardiogram Report ---
Test Reason : Blood Pressure : / mmHG Vent. Rate : 101 BPM Atrial Rate : 101 BPM P-R Int : 162 ms QRS Dur : 090 ms QT Int : 380 ms P-R-T Axes : 029 001 025 degrees QTc Int : 492 ms Sinus tachycardia with occasional Premature ventricular complexes Possible Anterior infarct (cited on or before 30-DEC-2010) Abnormal ECG When compared with ECG of 15-MAR-2020 08:42, Premature ventricular complexes are now Present Confirmed by Watson George ([id number]) on 03/18/2020 12:21:35 PM Referred By: REFERRED SELF Confirmed By:Watson George
--- NOTE | 2020-03-18 13:15 | Gastrointestinal Consultation ---
Date of Consultation March 18, 2020 Assessment & Plan (1) Post-ERCP acute pancreatitis: This is a 54 y/o female with epigastric abd pain, elevated LFTs, admitted with post-ERCP acute pancreatitis. It appears PD stent has passed. Labs trending down today including lipase, WBC, LFTs; pt feeling improved with no further vomiting. Abd soft. - Would recommend continued supportive care with IVF - Would keep NPO for now until abd pain improves a little more - As pain improves would start with clear liquids - Analgesia PRN - Antiemetics PRN - Trend LFTS, WBC, lipase - Would have pt f/u as an outpt with GI Thank you for allowing us to participate in the care of this patient. Please nasir l with any acute changes, questions or concerns. Please see addendum below with additional recommendation from my supervising physician. Supervising Physician Co-Signing Physician Notes I saw and evaluated the patient. She underwent ERCP last week with for history of abdominal pain and suspected biliary sludge. Of note the patient notes that she developed pain approximately 12 hours after the procedure was completed. The procedure was notable for placement of a prophylactic pancreatic stent. She notes that her pain is persistent and has not remitted since admission overnight. Her imaging is somewhat reassuring as there is no obvious fluid collection in the region of the pancreas Physical exam Mild abdominal tenderness noted, nonfocal no rebound Recommendations Continue with IV hydration LR at 150 mL/h N.p.o. until pain-free Patient may have ice chips and sips of water History of Present Illness Reason for Consultation: Post-ERCP pancreatitis Attending Physician: Roger Moncada MD History of Present Illness This is a 54 y/o female with PMHx developmental delay, congenital adrenal hyperplasia, acquired hypothyroidism, T2DM, GERD, depression with anxiety and others who underwent EGD/ERCP on 03/15/20 for epigastric abd pain and abnormal LFTs. During ERCP, biliary sphincterotomy was done and PD stent was placed. Over the weekend pt then developed upper abd pain radiating into her back, decreased appetite and went to the ER. On arrival she had elevated lipase of 4900, elevated LFTs, and leukocytosis. CTAP suggestive of mild acute pancreatitis, and linear metallic wire foreign body 10 cm near the TI/cecum; no perforation/obstruction. Pt was tx with IV analgesia, IVF, and 1 dose of ABX; placed on bowel rest with NPO. This AM Lipase down to 946, and WBC, LFTs trending down; she's afebrile. Pt states pain is not very much improved, but she has no n/v. Denies hematemesis, hematochezia, melena, fever, jaundice, CP, SOB, cough, abd bloating, leg edema, syncope. Allergies Allergy/AdvReac Type Severity Reaction Status Date / Time No Known Drug Allergies Allergy Verified 03/17/20 08:54 Home Medications Medication Instructions Recorded Confirmed Type acetaminophen 325 mg tablet 325 mg PO Q6H PRN 01/19/19 03/17/20 History benztropine 1 mg tablet 1 mg PO PM 01/19/19 03/17/20 History bupropion HCl 300 mg 24 hr tablet, 300 mg PO QAM 01/19/19 03/17/20 History extended release loratadine 10 mg tablet 10 mg PO DAILY 01/19/19 03/17/20 History olanzapine 5 mg tablet 5 mg PO QPM 01/19/19 03/17/20 History omeprazole magnesium 20 mg 20 mg PO QAM 01/19/19 03/17/20 History capsule,delayed release pyridoxine (vitamin B6) 200 mg 200 mg PO QAM 01/19/19 03/17/20 History tablet,extended release spironolactone 50 mg tablet 50 mg PO BID #180 tab 09/01/19 03/17/20 Rx cholecalciferol (vitamin D3) 1,000 unit PO QAM 03/12/20 03/17/20 History levothyroxine 100 mcg PO DAILY 03/15/20 03/17/20 History albuterol sulfate [Ventolin HFA] 1 inh INHALATION QID 03/17/20 03/17/20 History furosemide 20 mg PO DAILY 03/17/20 03/17/20 History loratadine [Claritin] 10 mg PO DAILY 03/17/20 03/17/20 History metformin 1,000 mg PO BID 03/17/20 03/17/20 History vitamin E 600 unit PO DAILY 03/17/20 03/17/20 History Patient History Medical History Allergic rhinitis Anemia Anxiety Asthma RARE RES. INH Bipolar disorder Depression Diverticular disease GERD (gastroesophageal reflux disease) GI bleed PT UNAWARE Russ's thyroiditis Hypertension Hypothyroidism Intellectual disability Poor historian Pre-diabetes Surgical History H/O colonoscopy H/O endoscopy History of tooth extraction Hx laparoscopic cholecystectomy Family History Father Coronary heart disease Social History Smoking Status: Never smoker Second Hand Exposure: No; Hx Alcohol Use: No Hx Substance Use: No Preferred Language: [place]er Communication Ability: Effective Beauty Sales Consultant Required: No Beliefs That Will Affect Care: None Current Living Situation: Alone Current Living Situation Comment: appartment Other Information That Helps Us Care for You: No Feels Safe at Home: Yes Safety Concerns: Feels Safe At This Time Assistive Devices: Walker Assistive Devices Comment: dentures at home Review of Systems Review of Systems: All systems reviewed & are unremarkable except as noted in HPI & below Physical Exam Constitutional: WD/WN, vitals as above no acute distress Eyes: PERRL, conjunctivae normal, anicteric sclerae Respiratory: normal respiratory effort, lungs clear to auscultation Cardiovascular: RRR, no murmur, no edema Gastrointestinal (Abdomen): normal bowel sounds, soft, nontender, no hepatosplenomegaly Inspection/Auscultation: abdomen not distended Skin: no rashes, warm and dry Psychiatric: A+Ox3, euthymic affect Results & Data ([place]) Vital Signs (Past 12 Hours) Vital Signs Temp Pulse Pulse Resp BP BP Pulse Ox 03/18/20 12:00 36.8 C 98 H 20 127/78 95 03/18/20 11:24 103 H 03/18/20 07:43 36.9 C 100 H 20 118/76 95 03/18/20 02:57 36.9 C 110 H 19 104/70 97 Laboratory Results 03/18/20 03/18/20 03/18/20 Range/Units 11:38 05:57 05:41 WBC (4.8-10.8) K/uL RBC (4.2-5.4) M/uL Hgb (12.0-16.0) g/dL Hct (37-47) % MCV (80-100) fL MCH (25-34) pg MCHC (32-36) g/dL RDW Std Deviation (36.4-46.3) fL RDW Coeff of Sukumar (11.5-14.5) % Plt Count (130-400) K/uL MPV (7.4-10.4) fL Sodium (136-145) mmol/L Potassium (3.5-5.1) mmol/L Chloride (98-107) mmol/L Carbon Dioxide (21-32) mmol/L Anion Gap (3-11) BUN (7-18) mg/dl Creatinine (0.6-1.2) mg/dl Est Cr Clr Drug Dosing ml/min Est GFR ( Amer) Est GFR (Non-Af Amer) BUN/Creatinine Ratio (10-20) Glucose (70-99) mg/dl POC Glucose 103 H 93 (70-99) mg/dl Estimat Average Glucose 131 mg/dl Hemoglobin A1c 6.2 H (4.5-5.6) % Calcium (8.5-10.1) mg/dl Total Bilirubin (0.2-1) mg/dl AST (15-37) U/L ALT (12-78) U/L Alkaline Phosphatase (45-117) U/L Total Protein (6.4-8.2) gm/dl Albumin (3.4-5.0) gm/dl Globulin (2.5-4.0) gm/dl Albumin/Globulin Ratio (0.9-2) Lipase (73-393) U/L SARS-CoV-2 Ag (Rapid) (Negative) 03/18/20 03/18/20 03/18/20 Range/Units 05:41 05:41 00:22 WBC 11.92 H (4.8-10.8) K/uL RBC 3.80 L (4.2-5.4) M/uL Hgb 11.3 L (12.0-16.0) g/dL Hct 34.4 L (37-47) % MCV 90.5 (80-100) fL MCH 29.7 (25-34) pg MCHC 32.8 (32-36) g/dL RDW Std Deviation 47.1 H (36.4-46.3) fL RDW Coeff of Sukumar 14.1 (11.5-14.5) % Plt Count 206 (130-400) K/uL MPV 11.5 H (7.4-10.4) fL Sodium 139 (136-145) mmol/L Potassium 3.2 L (3.5-5.1) mmol/L Chloride 105 (98-107) mmol/L Carbon Dioxide 26 (21-32) mmol/L Anion Gap 8.0 (3-11) BUN 12 (7-18) mg/dl Creatinine 0.58 L D (0.6-1.2) mg/dl Est Cr Clr Drug Dosing 121.6 ml/min Est GFR ( Amer) 120.3 Est GFR (Non-Af Amer) 103.8 BUN/Creatinine Ratio 20.5 H (10-20) Glucose 93 (70-99) mg/dl POC Glucose 98 (70-99) mg/dl Estimat Average Glucose mg/dl Hemoglobin A1c (4.5-5.6) % Calcium 8.2 L (8.5-10.1) mg/dl Total Bilirubin 0.6 (0.2-1) mg/dl AST 38 H (15-37) U/L ALT 78 (12-78) U/L Alkaline Phosphatase 100 (45-117) U/L Total Protein 6.1 L (6.4-8.2) gm/dl Albumin 2.8 L (3.4-5.0) gm/dl Globulin 3.3 (2.5-4.0) gm/dl Albumin/Globulin Ratio 0.8 L (0.9-2) Lipase 946 H (73-393) U/L SARS-CoV-2 Ag (Rapid) (Negative) 03/17/20 03/17/20 03/17/20 Range/Units 20:30 17:54 14:46 WBC (4.8-10.8) K/uL RBC (4.2-5.4) M/uL Hgb (12.0-16.0) g/dL Hct (37-47) % MCV (80-100) fL MCH (25-34) pg MCHC (32-36) g/dL RDW Std Deviation (36.4-46.3) fL RDW Coeff of Sukumar (11.5-14.5) % Plt Count (130-400) K/uL MPV (7.4-10.4) fL Sodium (136-145) mmol/L Potassium (3.5-5.1) mmol/L Chloride (98-107) mmol/L Carbon Dioxide (21-32) mmol/L Anion Gap (3-11) BUN (7-18) mg/dl Creatinine (0.6-1.2) mg/dl Est Cr Clr Drug Dosing ml/min Est GFR ( Amer) Est GFR (Non-Af Amer) BUN/Creatinine Ratio (10-20) Glucose (70-99) mg/dl POC Glucose 101 H 105 H (70-99) mg/dl Estimat Average Glucose mg/dl Hemoglobin A1c (4.5-5.6) % Calcium (8.5-10.1) mg/dl Total Bilirubin (0.2-1) mg/dl AST (15-37) U/L ALT (12-78) U/L Alkaline Phosphatase (45-117) U/L Total Protein (6.4-8.2) gm/dl Albumin (3.4-5.0) gm/dl Globulin (2.5-4.0) gm/dl Albumin/Globulin Ratio (0.9-2) Lipase (73-393) U/L SARS-CoV-2 Ag (Rapid) Negative (Negative) Diagnostic Findings CTAP - edema with small volume of free fluid within the upper abdomen, notably within the lesser sac and surrounding the pancreas is suggestive of acute uncomplicated pancreatitis. Linear metallic wire foreign body measuring over 10 cm in length within the terminal ileum, ileocecal valve and cecum. No evidence of perforation or bowel obstruction.
[2020-03-18] MEDS: MoRPHine SULFATE 2 MG/ML CARP IV PRN ×2 (13:44→16:57)
--- NOTE | 2020-03-18 17:24 | Hospitalist Progress Note ---
Date of Service March 18, 2020 Assessment & Plan (1) Post-ERCP acute pancreatitis: (2) Abdominal pain: Post ERCP acute pancreatitis -CT ABD: Edema with small volume of free fluid within the upper abdomen, notably within the lesser sac and surrounding the pancreas is suggestive of acute uncomplicated pancreatitis. No drainable fluid collection or pancreatic ductal dilation. Cholecystectomy with mild dilation of the common bile duct, likely postsurgical. Linear metallic wire foreign body measuring over 10 cm in length within the terminal ileum, ileocecal valve and cecum. No evidence of perforation or bowel obstruction. Hepatic steatosis. -Lipase:4964 -Continue IV fluids -Bowel rest with n.p.o. -Continue PPI -Appreciate GI input SIRS Likely secondary to above No obvious source of infection Blood Cx:pending Hold off of Abx for now Hypokalemia Check magnesium level Replete electrolytes as needed Elevated Liver Enzymes H/O biliary sludge Avoid hepatotoxic agents monitor LFTs Sinus Tachycardia Possible related to pain Monitor DM type 2 HbA1C: 6.2 Hold metformin Continue Insulin therapy Monitor BGs GERD Continue PPI Hirsutism Continue Aldactone Depression/ anxiety Continue Wellbutrin, Zyprexa, Benztropine Stable DVT Px: SCDs Re:H/O GI bleed CODE status FULL CODE Admission and Anticipated Discharge Date Admission Date: March 17, 2020 Subjective Patient is seen and examined at bedside Poor historian Complains of epigastric abdominal pain Minimal nonexpectorant cough Denies chest pain, shortness of breath, dizziness, nausea Offers no other complaints Review of Systems Review of Systems: All systems reviewed & are unremarkable except as noted in HPI & below Physical Exam Physical Exam: Physical Exam: Vitals signs as noted above General Appearance:Obese, no apparent distress Head: normocephalic, Atraumatic Eyes: normal inspection, EOMI Neck: supple, Trachea midline Respiratory/Chest: Normal breath sounds, minimal basal crackles Cardiovascular: S1, S2, No murmur Abdomen/GI:Soft, Epigastric tender, Bowel sounds present Extremities/Musculoskelatal:normal inspection, 1+ B/L LE edema Neurologic/Psych:AAOX3, grossly no focal neurological deficits Skin: normal color, warm Results & Data Results & Data ([place]) Vital Signs (Past 12 Hours) Vital Signs Temp Pulse Pulse Resp BP BP Pulse Ox 03/18/20 16:39 100 H 03/18/20 15:04 36.7 C 99 H 18 98/66 L 96 03/18/20 13:48 99 H 18 115/58 L 94 03/18/20 13:33 98 H 18 102/67 96 03/18/20 12:00 36.8 C 98 H 20 127/78 95 03/18/20 11:24 103 H 03/18/20 07:43 36.9 C 100 H 20 118/76 95 Laboratory Results Short CBC 03/18/20 Range/Units 05:41 WBC 11.92 H (4.8-10.8) K/uL Hgb 11.3 L (12.0-16.0) g/dL Hct 34.4 L (37-47) % Plt Count 206 (130-400) K/uL BMP 03/18/20 05:41 Sodium 139 Potassium 3.2 L Chloride 105 Carbon Dioxide 26 BUN 12 Creatinine 0.58 L D Glucose 93 Calcium 8.2 L Liver Function 03/18/20 Range/Units 05:41 Total Bilirubin 0.6 (0.2-1) mg/dl AST 38 H (15-37) U/L ALT 78 (12-78) U/L Alkaline Phosphatase 100 (45-117) U/L Albumin 2.8 L (3.4-5.0) gm/dl
[2020-03-18] MEDS: BENZTROPINE MESYLATE 1 MG TAB PO SCH (20:29)
[2020-03-18] MEDS: OLANZapine 5 MG TABLET PO SCH (20:29)
[2020-03-19] MEDS: INSULIN ASPART 100 UNITS/ML 3 ML PEN SC SCH ×5 (00:32→21:43)
[2020-03-19] MEDS: LACTATED RINGER'S 1,000 ML IV SCH ×4 (01:06→20:28)
[2020-03-19] MEDS: LEVOTHYROXINE SODIUM 100 MCG TABLET PO SCH (06:06)
[2020-03-19 06:29] LABS: Basophils # (auto) 0.02 K/uL (0-0.2); Basophils % (auto) 0.2 %; Eosinophils # (auto) 0.14 K/uL (0-0.5); Eosinophils % (auto) 1.1 %; Hematocrit (blood only) 33.1 % (37-47); Hemoglobin 10.7 g/dL (12.0-16.0); Immature Granulocytes # (auto) 0.02 K/uL (0.00-0.02); Immature Granulocytes % (auto) 0.2 %; Lymphocytes # (auto) 1.84 K/uL (1.2-3.4); Lymphocytes % (auto) 14.9 %; Mean Corpuscular Hemoglobin 29.1 pg (25-34); Mean Corpuscular Hgb Conc 32.3 g/dL (32-36); Mean Corpuscular Volume 89.9 fL (80-100); Mean Platelet Volume 11.3 fL (7.4-10.4); Monocytes # (auto) 0.85 K/uL (0.11-0.59); Monocytes % (auto) 6.9 %; Neutrophils # (auto) 9.46 K/uL (1.4-6.5); Neutrophils % (auto) 76.7 %; Platelet Count 190 K/uL (130-400); RDW Standard Deviation 46.9 fL (36.4-46.3); Red Blood Count 3.68 M/uL (4.2-5.4); White Blood Count 12.33 K/uL (4.8-10.8)
[2020-03-19 06:51] LABS: BUN Creatinine Ratio 16.5 (10-20); Calcium 8.6 mg/dl (8.5-10.1); Est GFR (African American) 123.9; Est GFR (Non-African American) 106.9; Magnesium 1.5 mg/dl (1.8-2.4); Potassium 3.5 mmol/L (3.5-5.1)
[2020-03-19] MEDS: SPIRONOLACTONE 25 MG TAB PO SCH ×2 (07:46→20:29)
[2020-03-19] MEDS: buPROPion XL 300 MG TABCR PO SCH (07:46)
[2020-03-19] MEDS: CHOLECALCIFEROL 1,000 UNITS 25 MCG TAB PO SCH (07:46)
[2020-03-19] MEDS: TOCOPHERYL, DL-ALPHA 100 UNITS CAP PO SCH (07:46)
[2020-03-19] MEDS: PYRIDOXINE HCL 50 MG TAB PO SCH (07:47)
[2020-03-19] MEDS: PANTOprazole 40 MG TAB PO SCH (07:47)
[2020-03-19] MEDS: LORATADINE 10 MG TAB PO SCH (07:47)
--- NOTE | 2020-03-19 10:35 | Gastroenterology Progress Note ---
Date of Service March 19, 2020 Assessment & Plan (1) Post-ERCP acute pancreatitis: This is a 54 y/ female who underwent ERCP last week for abd pain, with placement of PD stent, later admitted with post-ERCP pancreatitis. Imaging with no obvious abscess/fluid collection, and lipase trended down. Pt states she has pain that has been ongoing several years and this is no worse/no better; about her baseline. Etiology of this pain remains somewhat unclear. - Would recheck lipase, LFTs today - Would continue IV hydration - Analgesia PRN - Antiemetics PRN - As she clinically improves including stable labs, exam and pain rating, could try sips of water/clear liquids if tolerated - Would have pt f/u as an outpt with GI - GI will sign off, please call with questions Supervising Physician Co-Signing Physician Notes I saw and evaluated the patient. She appears to be improving from her admission with post ERCP pancreatitis. Recommendations Continue full liquid diet If doing well tomorrow may advance diet as tolerated and consider early discharge Subjective Pt seen in f/u post ERCP pancreatitis. She is sitting upright in bedside chair. She is feeling about the same; states her chronic abd pain is no better/no worse than normal. Denies n/v, fever, jaundice, CP, SOB, melena, hematochezia. Review of Systems Review of Systems: All systems reviewed & are unremarkable except as noted in HPI & below Physical Exam Constitutional: WD/WN, vitals as above Respiratory: normal respiratory effort Gastrointestinal (Abdomen): Inspection/Auscultation: abdomen normal to inspection; abdomen not distended Percussion/Palpation: abdomen soft; no guarding Mild generalized tenderness, no rebound Skin: no rashes, warm and dry Psychiatric: A+Ox3, euthymic affect Results & Data ([facility]) Vital Signs (Past 12 Hours) Vital Signs Temp Pulse Pulse Resp BP Pulse Ox 03/19/20 07:00 105 H 03/19/20 06:36 36.9 C 82 16 104/62 91 03/19/20 04:17 37 C 102 H 16 103/68 90 03/18/20 23:40 36.9 C 101 H 20 116/74 95 03/18/20 23:30 106 H
[2020-03-19] MEDS: MAGNESIUM SULFATE / D5W 1 GM/100 ML BAG IV SCH ×2 (11:22→13:08)
[2020-03-19 11:35] LABS: Albumin Level 2.6 gm/dl (3.4-5.0); Bilirubin Direct 0.1 mg/dl (0-0.2); Bilirubin,Total 0.4 mg/dl (0.2-1); Total Protein 6.1 gm/dl (6.4-8.2)
[2020-03-19] MEDS ORDERED: Nursing to Pharmacy Communication SCH (15:30)
--- NOTE | 2020-03-19 19:22 | Hospitalist Progress Note ---
Date of Service March 19, 2020 Assessment & Plan (1) Post-ERCP acute pancreatitis: (2) Abdominal pain: Post ERCP acute pancreatitis -CT ABD: Edema with small volume of free fluid within the upper abdomen, notably within the lesser sac and surrounding the pancreas is suggestive of acute uncomplicated pancreatitis. No drainable fluid collection or pancreatic ductal dilation. Cholecystectomy with mild dilation of the common bile duct, likely postsurgical. Linear metallic wire foreign body measuring over 10 cm in length within the terminal ileum, ileocecal valve and cecum. No evidence of perforation or bowel obstruction. Hepatic steatosis. -Lipase:4964>297 -Decrease IV fluids -Continue PPI -Appreciate GI input -Advance to full liquid diet today SIRS Likely secondary to above No obvious source of infection Blood Cx: No growth to date Hold off of Abx for now Hypokalemia Hypomagnesemia Replete electrolytes as needed Elevated Liver Enzymes H/O biliary sludge Avoid hepatotoxic agents LFTs normalized Sinus Tachycardia Possible related to pain Monitor DM type 2 HbA1C: 6.2 Hold metformin Continue Insulin therapy Monitor BGs GERD Continue PPI Hirsutism Continue Aldactone Depression/ anxiety Continue Wellbutrin, Zyprexa, Benztropine Stable DVT Px: SCDs Re:H/O GI bleed CODE status FULL CODE Disposition Expected discharge back to alf as able Admission and Anticipated Discharge Date Admission Date: March 17, 2020 Subjective Patient is seen and examined at bedside Poor historian Sitting in chair comfortably this morning States having minimal abdominal pain associated with nausea today Denies chest pain, shortness of breath, dizziness, nausea Offers no other complaints Review of Systems Review of Systems: All systems reviewed & are unremarkable except as noted in HPI & below Physical Exam Physical Exam: Physical Exam: Vitals signs as noted above General Appearance:Obese, no apparent distress Head: normocephalic, Atraumatic Eyes: normal inspection, EOMI Neck: supple, Trachea midline Respiratory/Chest: Normal breath sounds, CTA Cardiovascular: S1, S2, No murmur Abdomen/GI:Soft, Epigastric tender, Bowel sounds present Extremities/Musculoskelatal:normal inspection, 1+ B/L LE edema Neurologic/Psych:AAOX3, grossly no focal neurological deficits Skin: normal color, warm Results & Data Results & Data ([facility]) Vital Signs (Past 12 Hours) Vital Signs Temp Pulse Resp BP Pulse Ox 03/19/20 15:39 36.6 C 98 H 18 114/76 94 Laboratory Results Short CBC 03/19/20 Range/Units 05:51 WBC 12.33 H (4.8-10.8) K/uL Hgb 10.7 L (12.0-16.0) g/dL Hct 33.1 L (37-47) % Plt Count 190 (130-400) K/uL BMP 03/19/20 05:51 Sodium 138 Potassium 3.5 Chloride 103 Carbon Dioxide 23 BUN 9 Creatinine 0.53 L Glucose 86 Calcium 8.6 Liver Function 03/19/20 Range/Units 05:51 Total Bilirubin 0.4 (0.2-1) mg/dl Direct Bilirubin 0.1 (0-0.2) mg/dl AST 32 (15-37) U/L ALT 72 (12-78) U/L Alkaline Phosphatase 109 (45-117) U/L Albumin 2.6 L (3.4-5.0) gm/dl
[2020-03-19] MEDS: BENZTROPINE MESYLATE 1 MG TAB PO SCH (20:29)
[2020-03-19] MEDS: OLANZapine 5 MG TABLET PO SCH (20:29)
[2020-03-19 22:41] LABS: Appearance Urine Clear (Clear); Bilirubin Urine Negative (Negative); Blood Urine Negative (Negative); Color Urine Yellow; Glucose Urine UA Negative (Negative); Ketones Urine 3+ (Negative); Leukocyte Esterase Urine Negative (Negative); Nitrite Urine Negative (Negative); Protein Urine Negative (Negative); Specific Gravity Urine 1.013 (1.000-1.030); Urobilinogen Urine Negative (Negative); pH Urine 5.5 (4.5-7.5)
[2020-03-20] MEDS ORDERED: BENZONATATE 100 MG CAPSULE PO PRN (04:59)
[2020-03-20] MEDS ORDERED: guaiFENesin 600 MG TABCR PO SCH (05:00)
[2020-03-20] MEDS: LEVOTHYROXINE SODIUM 100 MCG TABLET PO SCH (05:33)
[2020-03-20 05:59] LABS: Basophils # (auto) 0.01 K/uL (0-0.2); Basophils % (auto) 0.1 %; Eosinophils # (auto) 0.15 K/uL (0-0.5); Eosinophils % (auto) 1.6 %; Hematocrit (blood only) 32.4 % (37-47); Hemoglobin 10.7 g/dL (12.0-16.0); Immature Granulocytes # (auto) 0.02 K/uL (0.00-0.02); Immature Granulocytes % (auto) 0.2 %; Lymphocytes % (auto) 15.8 %; Mean Corpuscular Hemoglobin 29.3 pg (25-34); Mean Corpuscular Volume 88.8 fL (80-100); Mean Platelet Volume 10.8 fL (7.4-10.4); Monocytes % (auto) 6.3 %; Neutrophils # (auto) 7.19 K/uL (1.4-6.5); Platelet Count 207 K/uL (130-400); RDW Coefficient of Variation 13.8 % (11.5-14.5); RDW Standard Deviation 44.9 fL (36.4-46.3); Red Blood Count 3.65 M/uL (4.2-5.4); White Blood Count 9.47 K/uL (4.8-10.8)
[2020-03-20 06:22] LABS: BUN Creatinine Ratio 7.9 (10-20); Calcium 8.7 mg/dl (8.5-10.1); Creatinine Clr Calc Pharmacy 126.2 ml/min; Est GFR (Non-African American) 104.4; Magnesium 1.8 mg/dl (1.8-2.4); Potassium 3.2 mmol/L (3.5-5.1)
--- NOTE | 2020-03-20 06:41 | XRay Report ---
XR chest 1V portable CLINICAL HISTORY: cough COMPARISON STUDY: Chest radiograph June 22, 2018. FINDINGS: Lung volumes are diminished. Cardiomegaly is unchanged. There is no evidence for pulmonary edema. There is no pneumothorax or pleural effusion. Mild left basilar opacity is present. IMPRESSION: 1. Low lung volumes. Mild left basilar opacity favors atelectasis. An infectious process could appear similar. 2. Mild cardiomegaly without evidence for pulmonary edema. ACT 112: Negative or not required by law. Electronically signed by: Chalino Camara M.D. 03/20/2020 6:40 AM
[2020-03-20] MEDS: INSULIN ASPART 100 UNITS/ML 3 ML PEN SC SCH ×2 (08:23→12:14)
[2020-03-20] MEDS: LORATADINE 10 MG TAB PO SCH (08:24)
[2020-03-20] MEDS: CHOLECALCIFEROL 1,000 UNITS 25 MCG TAB PO SCH (08:24)
[2020-03-20] MEDS: buPROPion XL 300 MG TABCR PO SCH (08:24)
[2020-03-20] MEDS: PANTOprazole 40 MG TAB PO SCH (08:24)
[2020-03-20] MEDS: TOCOPHERYL, DL-ALPHA 100 UNITS CAP PO SCH (08:24)
[2020-03-20] MEDS: PYRIDOXINE HCL 50 MG TAB PO SCH (08:25)
[2020-03-20] MEDS: SPIRONOLACTONE 25 MG TAB PO SCH (08:25)
[2020-03-20] MEDS ORDERED: POTASSIUM CHLORIDE CRTAB 20 MEQ TABCR PO ONE (09:10)
[2020-03-20] MEDS: LACTATED RINGER'S 1,000 ML IV SCH (10:11)
--- NOTE | 2020-03-20 11:55 | Gastroenterology Progress Note ---
Date of Service March 20, 2020 Assessment & Plan (1) Post-ERCP acute pancreatitis: This is a 54 y/ female who underwent ERCP last week for abd pain, with placement of PD stent, later admitted with post-ERCP pancreatitis. Imaging with no obvious abscess/fluid collection, and though lipase and LFTs initially elevated, they have since normalized. Abd is now resolved and she is feeling improved; tolerating breakfast. She had a black BM yesterday however labs are stable, including HGB and BUN, VSS and she has no ongoing GI output. Bx from endoscopy are pending. - Continue advancing diet as tolerated - It appears she has a history of gastroparesis; would suggest she follow a gastroparesis diet - Would have pt f/u as an outpt with GI - Would have pt take daily PPI and monitor for any ongoing stool changes - Await bx from endoscopy - As she continues to clinically improve, no GI contraindications to discharge - Please call with questions Admission and Anticipated Discharge Date Admission Date: March 17, 2020 Supervising Physician Co-Signing Physician Notes I saw and evaluated the patient. She notes that her discomfort has improved significantly. She appears to have recovered from her post ERCP pancreatitis well and will follow up with Dr. Saavedra as an outpatient. Please call with any questions or concerns will sign off for now Subjective Pt seen in f/u Post-ERCP pancreatitis. Doing well overnight, today states her abd pain is resolved. Tolerated her breakfast. She had a large black BM since yesterday; though labs are stable. Denies n/v, jaundice, hematochezia, hematemesis, fever, SOB. Review of Systems Review of Systems: All systems reviewed & are unremarkable except as noted in HPI & below Physical Exam Constitutional: WD/WN, vitals as above no acute distress Eyes: + anicteric sclerae Respiratory: normal respiratory effort, lungs clear to auscultation Cardiovascular: Rate/Rhythm: regular rate and regular rhythm Gastrointestinal (Abdomen): Inspection/Auscultation: abdomen normal to inspection and normal bowel sounds; abdomen not distended Percussion/Pal pation: abdomen soft Skin: no rashes, warm and dry Psychiatric: A+Ox3, euthymic affect Results & Data ([facility]) Vital Signs (Past 12 Hours) Vital Signs Temp Pulse Pulse Resp BP Pulse Ox 03/20/20 07:56 37 C 105 H 18 120/80 96 03/20/20 07:00 107 H 03/20/20 04:52 37.1 C 97 H 18 123/77 95 Laboratory Results 03/20/20 03/20/20 03/20/20 Range/Units 07:40 05:35 05:35 WBC 9.47 (4.8-10.8) K/uL RBC 3.65 L (4.2-5.4) M/uL Hgb 10.7 L (12.0-16.0) g/dL Hct 32.4 L (37-47) % MCV 88.8 (80-100) fL MCH 29.3 (25-34) pg MCHC 33.0 (32-36) g/dL RDW Std Deviation 44.9 (36.4-46.3) fL RDW Coeff of Sukumar 13.8 (11.5-14.5) % Plt Count 207 (130-400) K/uL MPV 10.8 H (7.4-10.4) fL Immature Gran % (Auto) 0.2 % Neut % (Auto) 76.0 % Lymph % (Auto) 15.8 % [place] % (Auto) 6.3 % Eos % (Auto) 1.6 % Baso % (Auto) 0.1 % Neut # (Auto) 7.19 H (1.4-6.5) K/uL Lymph # (Auto) 1.50 (1.2-3.4) K/uL Burnett # (Auto) 0.60 H (0.11-0.59) K/uL Eos # (Auto) 0.15 (0-0.5) K/uL Baso # (Auto) 0.01 (0-0.2) K/uL Immature Gran # (Auto) 0.02 (0.00-0.02) K/uL Sodium 137 (136-145) mmol/L Potassium 3.2 L (3.5-5.1) mmol/L Chloride 104 (98-107) mmol/L Carbon Dioxide 26 (21-32) mmol/L Anion Gap 7.0 (3-11) BUN 4 L D (7-18) mg/dl Creatinine 0.57 L (0.6-1.2) mg/dl Est Cr Clr Drug Dosing 126.2 ml/min Est GFR ( Amer) 121.0 Est GFR (Non-Af Amer) 104.4 BUN/Creatinine Ratio 7.9 L (10-20) Glucose 112 H (70-99) mg/dl POC Glucose 125 H (70-99) mg/dl Calcium 8.7 (8.5-10.1) mg/dl Magnesium 1.8 (1.8-2.4) mg/dl Urine Color Urine Appearance (Clear) Urine pH (4.5-7.5) Ur Specific [place] (1.000-1.030) Urine Protein (Negative) Urine Glucose (UA) (Negative) Urine Ketones (Negative) Urine Blood (Negative) Urine Nitrite (Negative) Urine Bilirubin (Negative) Urine Urobilinogen (Negative) Ur Leukocyte Esterase (Negative) 03/19/20 03/19/20 03/19/20 Range/Units 21:38 20:46 16:46 WBC (4.8-10.8) K/uL RBC (4.2-5.4) M/uL Hgb (12.0-16.0) g/dL Hct (37-47) % MCV (80-100) fL MCH (25-34) pg MCHC (32-36) g/dL RDW Std Deviation (36.4-46.3) fL RDW Coeff of Sukumar (11.5-14.5) % Plt Count (130-400) K/uL MPV (7.4-10.4) fL Immature Gran % (Auto) % Neut % (Auto) % Lymph % (Auto) % [place] % (Auto) % Eos % (Auto) % Baso % (Auto) % Neut # (Auto) (1.4-6.5) K/uL Lymph # (Auto) (1.2-3.4) K/uL [place] # (Auto) (0.11-0.59) K/uL Eos # (Auto) (0-0.5) K/uL Baso # (Auto) (0-0.2) K/uL Immature Gran # (Auto) (0.00-0.02) K/uL Sodium (136-145) mmol/L Potassium (3.5-5.1) mmol/L Chloride (98-107) mmol/L Carbon Dioxide (21-32) mmol/L Anion Gap (3-11) BUN (7-18) mg/dl Creatinine (0.6-1.2) mg/dl Est Cr Clr Drug Dosing ml/min Est GFR ( Amer) Est GFR (Non-Af Amer) BUN/Creatinine Ratio (10-20) Glucose (70-99) mg/dl POC Glucose 119 H 87 (70-99) mg/dl Calcium (8.5-10.1) mg/dl Magnesium (1.8-2.4) mg/dl Urine Color Yellow Urine Appearance Clear (Clear) Urine pH 5.5 (4.5-7.5) Ur Specific [place] 1.013 (1.000-1.030) Urine Protein Negative (Negative) Urine Glucose (UA) Negative (Negative) Urine Ketones 3+ H (Negative) Urine Blood Negative (Negative) Urine Nitrite Negative (Negative) Urine Bilirubin Negative (Negative) Urine Urobilinogen Negative (Negative) Ur Leukocyte Esterase Negative (Negative) 03/19/20 Range/Units 11:38 WBC (4.8-10.8) K/uL RBC (4.2-5.4) M/uL Hgb (12.0-16.0) g/dL Hct (37-47) % MCV (80-100) fL MCH (25-34) pg MCHC (32-36) g/dL RDW Std Deviation (36.4-46.3) fL RDW Coeff of Sukumar (11.5-14.5) % Plt Count (130-400) K/uL MPV (7.4-10.4) fL Immature Gran % (Auto) % Neut % (Auto) % Lymph % (Auto) % [place] % (Auto) % Eos % (Auto) % Baso % (Auto) % Neut # (Auto) (1.4-6.5) K/uL Lymph # (Auto) (1.2-3.4) K/uL [place] # (Auto) (0.11-0.59) K/uL Eos # (Auto) (0-0.5) K/uL Baso # (Auto) (0-0.2) K/uL Immature Gran # (Auto) (0.00-0.02) K/uL Sodium (136-145) mmol/L Potassium (3.5-5.1) mmol/L Chloride (98-107) mmol/L Carbon Dioxide (21-32) mmol/L Anion Gap (3-11) BUN (7-18) mg/dl Creatinine (0.6-1.2) mg/dl Est Cr Clr Drug Dosing ml/min Est GFR ( Amer) Est GFR (Non-Af Amer) BUN/Creatinine Ratio (10-20) Glucose (70-99) mg/dl POC Glucose 96 (70-99) mg/dl Calcium (8.5-10.1) mg/dl Magnesium (1.8-2.4) mg/dl Urine Color Urine Appearance (Clear) Urine pH (4.5-7.5) Ur Specific [place] (1.000-1.030) Urine Protein (Negative) Urine Glucose (UA) (Negative) Urine Ketones (Negative) Urine Blood (Negative) Urine Nitrite (Negative) Urine Bilirubin (Negative) Urine Urobilinogen (Negative) Ur Leukocyte Esterase (Negative)
--- NOTE | 2020-03-20 12:14 | Hospitalist Progress Note ---
Date of Service March 20, 2020 Assessment & Plan (1) Post-ERCP acute pancreatitis: (2) Abdominal pain: Post ERCP acute pancreatitis -CT ABD: Edema with small volume of free fluid within the upper abdomen, notably within the lesser sac and surrounding the pancreas is suggestive of acute uncomplicated pancreatitis. No drainable fluid collection or pancreatic ductal dilation. Cholecystectomy with mild dilation of the common bile duct, likely postsurgical. Linear metallic wire foreign body measuring over 10 cm in length within the terminal ileum, ileocecal valve and cecum. No evidence of perforation or bowel obstruction. Hepatic steatosis. -Lipase:4964>297 -Discontinue IV fluids -Continue PPI -Appreciate GI input -Tolerated regular diet SIRS Likely secondary to above No obvious source of infection Blood Cx: No growth to date Hold off of Abx for now Leukocytosis normalized Hypokalemia Hypomagnesemia Replete electrolytes as needed Elevated Liver Enzymes H/O biliary sludge Avoid hepatotoxic agents LFTs normalized Sinus Tachycardia Possible related to pain Monitor DM type 2 HbA1C: 6.2 Hold metformin Continue Insulin therapy Monitor BGs GERD Continue PPI Hirsutism Continue Aldactone Depression/ anxiety Continue Wellbutrin, Zyprexa, Benztropine Stable DVT Px: SCDs Re:H/O GI bleed CODE status FULL CODE Disposition Plan to discharge back to senior living today Admission and Anticipated Discharge Date Admission Date: March 17, 2020 Subjective Patient is seen and examined at bedside States feeling much better today Abdominal pain, nausea resolved Tolerated regular diet Also denies chest pain, dyspnea, dizziness Offers no other complaints Review of Systems Review of Systems: All systems reviewed & are unremarkable except as noted in HPI & below Physical Exam Physical Exam: Physical Exam: Vitals signs as noted above General Appearance:Obese, no apparent distress Head: normocephalic, Atraumatic Eyes: normal inspection, EOMI Neck: supple, Trachea midline Respiratory/Chest: Normal breath sounds, CTA Cardiovascular: S1, S2, No murmur Abdomen/GI:Soft, non tender, Bowel sounds present Extremities/Musculoskelatal:normal inspection, 1+ B/L LE edema Neurologic/Psych:AAOX3, grossly no focal neurological deficits Skin: normal color, warm Results & Data Results & Data ([facility]) Vital Signs (Past 12 Hours) Vital Signs Temp Pulse Pulse Resp BP BP Pulse Ox 03/20/20 12:05 36.7 C 97 H 20 121/81 92 03/20/20 07:56 37 C 105 H 18 120/80 96 03/20/20 07:00 107 H 03/20/20 04:52 37.1 C 97 H 18 123/77 95 Laboratory Results Short CBC 03/20/20 Range/Units 05:35 WBC 9.47 (4.8-10.8) K/uL Hgb 10.7 L (12.0-16.0) g/dL Hct 32.4 L (37-47) % Plt Count 207 (130-400) K/uL BMP 03/20/20 05:35 Sodium 137 Potassium 3.2 L Chloride 104 Carbon Dioxide 26 BUN 4 L D Creatinine 0.57 L Glucose 112 H Calcium 8.7 Urine 03/19/20 Range/Units 21:38 Urine Color Yellow Urine Appearance Clear (Clear) Urine pH 5.5 (4.5-7.5) Ur Specific [place] 1.013 (1.000-1.030) Urine Protein Negative (Negative) Urine Glucose (UA) Negative (Negative)
--- NOTE | 2020-03-20 12:28 | Discharge Summary ---
Date of Service March 20, 2020 Admission HPI Per Admitting Provider 54-year-old female with past medical history significant for developmental delay, congenital adrenal hyperplasia, acquired hypothyroidism, DM type 2, hypopotassemia, GERD, allergic rhinitis, hirsutism, depression with anxiety presented to the ED with C/O of severe abdominal pain associated with Nausea and Vomiting. Pt recently had Upper GI endoscopy and ERCP with stent placement on 03/15/20 for epigastric abdominal pain and abnormal liver enzymes. After the procedure she discharged home. Then later she started To have severe abdominal pain mostly located in the left upper quadrant abdomen and then radiated to her back. She described the pain as an achy and constant. She has been having recurrent episode of vomiting. She said everything she eats that she threw up. Denies any chest pain, palpitation, dizziness, shortness of breath, chills, and fever or any recent exposure to anyone tested positive for COVID-19. She said that she had some diarrhea with stool color was green. She said that she has not been eating anything for the past 2 days. In the ER she was found to have elevated lipase, alkaline phosphatase, AST and ALT. CT abd/pelvis dne in the ER showed edema with small volume of free fluid within the upper abdomen, notably within the lesser sac and surrounding the pancreas is suggestive of acute uncomplicated pancreatitis. Linear metallic wire foreign body measuring over 10 cm in length within the terminal ileum, ileocecal valve and cecum. No evidence of perforation or bowel obstruction. Received IV fluids and IV Dilaudid in the ER that helps with the pain. Admission Exam Per Admitting Provider Physical Exam Physical Exam: General- alert and oriented Head- atraumatic Eyes- PERRL, anicteric ENT- oropharynx clear Neck- supple, no JVD, no adenopathy, carotids +2/2, no bruits appreciated Lungs- clear to auscultation and percussion Heart-+tachycardia, No murmur Abdomen- normal bowel sounds, soft, mild diffuse discomfort, no masses no distension Extremities- no pretibial edema, no erythema Neuro- alert, oriented x 3; PERRL,no facial palsy; no dysarthria; non focal Skin- warm & dry, +hirsutism Principal Diagnosis Post ERCP acute pancreatitis SIRS Hypokalemia Hypomagnesemia Discharge Data Allergies Allergy/AdvReac Type Severity Reaction Status Date / Time No Known Drug Allergies Allergy Verified 03/17/20 08:54 Consultations 03/17/20 16:44 Consult Gastroenterology Routine Procedures Performed CT ABD: Edema with small volume of free fluid within the upper abdomen, notably within the lesser sac and surrounding the pancreas is suggestive of acute uncomplicated pancreatitis. No drainable fluid collection or pancreatic ductal dilation. Cholecystectomy with mild dilation of the common bile duct, likely postsurgical. Linear metallic wire foreign body measuring over 10 cm in length within the terminal ileum, ileocecal valve and cecum. No evidence of perforation or bowel obstruction. Hepatic steatosis. Ordered Studies 03/17/20 08:36 CT abd pelvis IV con only Stat Hospital Course (1) Post-ERCP acute pancreatitis: (2) Abdominal pain: Post ERCP acute pancreatitis -CT ABD: Edema with small volume of free fluid within the upper abdomen, notably within the lesser sac and surrounding the pancreas is suggestive of acute uncomplicated pancreatitis. No drainable fluid collection or pancreatic ductal dilation. Cholecystectomy with mild dilation of the common bile duct, likely postsurgical. Linear metallic wire foreign body measuring over 10 cm in length within the terminal ileum, ileocecal valve and cecum. No evidence of perforation or bowel obstruction. Hepatic steatosis. -Lipase:4964>297 -Discontinue IV fluids -Continue PPI -Appreciate GI input -Tolerated regular diet SIRS Likely secondary to above No obvious source of infection Blood Cx: No growth to date Hold off of Abx for now Leukocytosis normalized Hypokalemia Hypomagnesemia Replete electrolytes as needed Elevated Liver Enzymes H/O biliary sludge Avoid hepatotoxic agents LFTs normalized Sinus Tachycardia Possible related to pain Monitor DM type 2 HbA1C: 6.2 Hold metformin Continue Insulin therapy Monitor BGs GERD Continue PPI Hirsutism Continue Aldactone Depression/ anxiety Continue Wellbutrin, Zyprexa, Benztropine Stable DVT Px: SCDs Re:H/O GI bleed CODE status FULL CODE Disposition [facility] Total Time Total Time Spent Total Time Spent (In Minutes): 42 minutes Total Time Includes: Examination of the Patient, Discharge Planning, Medication Reconciliation, Communication With Other Providers and Other Discharge Plan Discharge Items Patient Disposition: Home - Self-Care Reason For Visit: ABDOMINAL PAIN ASSOCIATED WITH NAUSEA/VOMITING Discharge Diagnosis: Post ERCP acute pancreatitis SIRS Hypokalemia Hypomagnesemia Activity: Per Instructions section Exercise/Sports: Gradually increase as tolerated Non-emergency contact: Primary Care Provider and [employer] Call non-emergency contact if: you have any medication questions, your symptoms worsen, your pain is not controlled, your pain is worsening, your pain is unusual for you, your pain is concerning for you and you have a fever Follow-up/Referrals: Curly Zimmer DO [Primary Care Provider] - (Date & Time 03/26/2020 3:00 PM Provider Curly Zimmer DO Department General Internal Medicine [facility] ) Dietitian Info: Gastroparesis Diet Diet: Carb Consistent or DM2 and Heart Healthy Ambulatory Orders: Basic Metabolic Panel (Routine) Timeframe: 1 Week Location: Determined by Patient Ordered By: Roger Chadwick Attending Provider Instructions: Follow-up with your primary care physician on 03/26/2020 3:00 PM Follow up with your Singer [employer] / as recommended by your machine slat basket maker --Get blood test (Basic Metabolic Panel) in 1 week and follow up with your physician with results --If your cough worsens or persistent, discussed with your physician possible need for antibiotics. --Your final blood cultures are pending at the time of discharge. Follow-up with your physician for results. -Start taking potassium chloride 20 mg daily for 7 days and STOP. Further instructions based on your blood test as per your Primary Care Physician. Seek immediate medical attention if your symptoms reoccur or worsen Pending Studies at Discharge: Yes Studies:: Blood Culture Stand-Alone Forms: My [facility] Growish, Smoking Cessation Medications and DC Order Prescriptions: New benzonatate [Tessalon Perles] 100 mg Capsule 100 mg PO TID PRN (Reason: cough) Qty: 14 RF: 0 potassium chloride 20 mEq tablet extended release 20 meq PO DAILY Qty: 7 RF: 0 Continued acetaminophen [Tylenol] 325 mg tablet 325 mg PO Q6H PRN (Reason: Pain) RF: 0 olanzapine [Zyprexa] 5 mg tablet 5 mg PO QPM RF: 0 pyridoxine (vitamin B6) 200 mg tablet extended release 200 mg PO QAM RF: 0 omeprazole magnesium [Acid Radiation Physicist (omeprazole)] 20 mg capsule,delayed release(DR/EC) 20 mg PO QAM RF: 0 bupropion HCl [Wellbutrin XL] 300 mg tablet extended release 24 hr 300 mg PO QAM RF: 0 loratadine [Claritin] 10 mg tablet 10 mg PO DAILY RF: 0 benztropine 1 mg tablet 1 mg PO PM RF: 0 spironolactone [Aldactone] 50 mg tablet 50 mg PO BID Qty: 180 RF: 3 cholecalciferol (vitamin D3) 100 mcg (4,000 unit) capsule 1,000 unit PO QAM RF: 0 levothyroxine 100 mcg Tablet 100 mcg PO DAILY RF: 0 metformin 500 mg tablet extended release 24 hr 1,000 mg PO BID RF: 0 vitamin E 600 unit Capsule 600 unit PO DAILY RF: 0 furosemide 20 mg tablet 20 mg PO DAILY RF: 0 albuterol sulfate [Ventolin HFA] 90 mcg/actuation Hfa Aerosol Inhaler 1 inh INHALATION QID RF: 0 loratadine [Claritin] 10 mg Tablet 10 mg PO DAILY RF: 0 Discharge Orders: Discharge Order (Routine); Ordered 03/20/20 Ordered By: Roger Henson/Other Patient Handouts: 5 Steps for Eating Healthier, A1C Admission Data Admit Date/Time: 03/17/20 14:28 Attending Provider: Roger Moncada Admit Provider: Naz Bradshaw Primary Care Provider: Curly Zimmer Other Providers: Markel Root Other Interventions: Discharge Summary Assessment (RN) Last Done: 03/20/20 14:34
== END 2020-03-20 16:30 | disposition home or self-care (01) | DRG 393 ==
LOC: ED 08:08 → SUATTDRO 14:28 → 2W 14:28

== ENCOUNTER 2022-10-19 14:12 | Inpatient (IN) ==
--- NOTE | 2022-10-19 15:16 | CT Scan Report ---
CT OF THE HEAD WITHOUT CONTRAST CLINICAL HISTORY: Neuro deficit, acute, stroke suspected. Trauma. COMPARISON STUDY: Head CT December 30, 2010. CT DOSE: 625.80 mGy.cm TECHNIQUE: Helical axial images of the head were obtained without IV contrast. Automated exposure con trol was utilized for the study. A dose lowering technique was utilized adhering to the principles o f ALARA. FINDINGS: No acute intracranial hemorrhage, midline shift or mass effect is present. The ventricular system is unremarkable. The basal cisterns are patent. No extra-axial collections are present. There are no findings to suggest acute dural sinus thrombosis or acute territorial infarct. No significant calvarial abnormalities are present. Visualized portions of the sinuses and mastoid air cells are ronaldo ar. There is a small right forehead contusion. IMPRESSION: 1. No acute intracranial findings. 2. Small right forehead contusion. No calvarial fracture. ACT 112: Negative or not required by law. Electronically signed by: Chalino Camara M.D. 10/19/2022 3:15 PM
[2022-10-19 15:25] LABS: Hematocrit (blood only) 40.6 % (37.0-47.0); Hemoglobin 14.1 g/dl (12.0-16.0); Mean Corpuscular Hemoglobin 29.4 pg (25.0-34.0); Mean Corpuscular Hgb Conc 34.7 g/dL (32.0-36.0); Mean Corpuscular Volume 84.8 fL (80.0-100.0); Mean Platelet Volume 10.4 fL (9.4-12.4); Platelet Count 323 K/uL (130-400); RDW Coefficient of Variation 12.4 % (11.5-14.5); RDW Standard Deviation 38.2 fL (36.4-46.3); Red Blood Count 4.79 M/uL (4.20-5.40); White Blood Count 11.92 K/ul (4.8-10.8)
--- NOTE | 2022-10-19 15:41 | Electrocardiogram Report ---
Test Reason : Blood Pressure : / mmHG Vent. 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
[2022-10-19 15:46] LABS: Alanine Aminotransferase 14 U/L (7-52); Albumin Globulin Ratio 1.6 (0.9-2); Albumin Level 5.1 gm/dl (3.4-5.0); Alkaline Phosphatase 126 U/L (34-104); Anion Gap 20 (3-11); Aspartate Aminotransferase 15 U/L (13-39); BUN Creatinine Ratio 24.3 (10-20); Bilirubin,Total 0.6 mg/dl (0.2-1.0); Blood Urea Nitrogen 35 mg/dl (6-23); Calcium 10.4 mg/dl (8.6-10.3); Carbon Dioxide 19 mmol/L (21-32); Chloride 96 mmol/L (98-107); Est GFR (African American) 46.6 ml/min; Est GFR (Non-African American) 40.2 ml/min; Globulin 3.1 gm/dl (2.5-4.0); Glucose 86 mg/dl (70-99(Fasting)); Magnesium 1.6 mg/dl (1.7-2.4); Potassium 3.5 mmol/L (3.5-5.1); Sodium 135 mmol/L (136-145); Total Protein 8.2 gm/dl (6.0-8.3)
[2022-10-19 15:53] LABS: Partial Thromboplastin Time 27.6 Seconds (21.0-31.0)
[2022-10-19 16:03] LABS: Creatine Kinase 49 U/L (26-192)
[2022-10-19 16:08] LABS: Troponin I High Sensitivity 3.9 pg/ml (0-14)
--- NOTE | 2022-10-19 16:10 | XRay Report ---
XR chest 1V not portable HISTORY: stroke alert COMPARISON: Chest 03/20/2020. FINDINGS: Cardiac silhouette is normal in size. No pleural effusions. No pneumothorax. Surgical clips noted within the abdomen. There is a punctate calcified granuloma within the left upper lobe, unchan ged. Otherwise, the lungs are clear. IMPRESSION: No acute process. ACT 112: Negative or not required by law. Electronically signed by: Niko Velasco M.D. 10/19/2022 4:09 PM
[2022-10-19] MEDS ORDERED: BENZTROPINE MESYLATE 1 MG TAB PO STA (16:16)
[2022-10-19] MEDS ORDERED: SODIUM CHLORIDE 0.9% 1000ML 500 ML IV ONE (16:16)
--- NOTE | 2022-10-19 16:36 | Emergency Department Note ---
Impression & Plan Fall, Dehydration, Lower extremity pain, left ED Provider Note Provider: Manuel Lincoln MD DATE OF SERVICE: 10/19/2022 CHIEF COMPLAINT: Fall on floor all night, shaky, left leg pain HISTORY OF PRESENT ILLNESS: Patient is a 56-year-old female history of GERD, intellectual disability, hypothyroidism, and CAH presenting here after her caregiver checked on her earlier today and found her on the floor. Evidently spent 10 to 12 hours on the floor after a fall last night. Unclear exactly what caused it. Caregiver reports the patient has been a bit unsteady for last several days. Has had some recent medication changes with her benztropine. Patient does not remember how she fell. Complains of some dizziness and bit of facial pain and is a bit twitchy according to patient's sister as well as caregiver at bedside. Patient complaining of pain in the left hip knee and ankle. Brought here by EMS. Not clear that she actually took any of her medications today and did not have anything to eat or drink before coming in today. Denies vomiting, chest pain, shortness of breath, or abdominal pain to me. Denies injury to the right leg. Denies injury to left arm. PAST MEDICAL HISTORY: As noted above MEDICATIONS: Reviewed her medication SOCIAL HISTORY: Lives by herself PHYSICAL EXAM: GENERAL: alert and oriented in no acute distress on stretcher with some facial twitching noted at times. Head: normocephalic with some slight swelling and contusion across the forehead and nasal bridge noted. Stable midface EYES: No injection, discharge or icterus. PERRL NECK: Trachea midline. Supple without significant midline tenderness ENT: Mucous membranes pink and moist. LUNGS: Airway patent. No retractions. Breath sounds clear HEART: Regular rate and rhythm. No chest wall tenderness ABDOMEN: Soft and non-tender, without guarding or rebound. SKIN: Acyanotic, warm, dry, without rashes EXTREMITIES: Without swelling, tenderness or deformity except for some tenderness of predominantly the left knee and ankle on ROM as well as the left hip Approximately 3 x 4 cm contusion of the anterior distal left [place] with soft compartments of the left leg. NEUROLOGICAL: No aphasia. No facial droop or slurred speech. Sensation to gross touch normal. Moves all extremities somewhat limited in the left leg due to pain. EK bpm sinus tachycardia. No PVC or PAC. No acute ST segment elevation with a QTc of 432. CONTINUOUS CARDIAC MONITORING: was ordered and showed a heart rate of 100s-120s bpm in sinus tachycardia GCS 15. Patient's laboratory studies and imaging reviewed. Differential includes traumatic injury, infection, dehydration, metabolic abnormality, hypo/hyperglycemia, electrolyte disturbance, anemia, hypoxia, cardiac sources, intracerebral event/neurologic, as well as other pathologies. IMPRESSION/MEDICAL DECISION MAKING: Patient evidently possibly fell or passed out and spent the night on the floor. CK not elevated likely and do not feel rhabdomyolysis. Appears somewhat dehydrated on blood work. Given some IV fluid cautiously given her history of regular diuretic usage. Does have some evidence of facial trauma as well as some dizziness. Slightly leukocytosis 11.9 likely stress related. Do not see a clear infectious history.Blood work with evidence of some anion gap as well as a bit of BUN and creatinine more concerning for possible dehydration as well as hypomagnesemia. Given some IV magnesium supplementation. No troponin elevation and EKG reassuring. X-rays of the left hip, knee and ankle be obtained but no gross deformity with only a slight contusion on the left lower [place]. No evidence of compartment syndrome on exam. Clearly reports maybe the patient had some bloody or darker stool sometime ago but not anemic here and I doubt any significant GI bleed. Benign abdomen on exam. Given some benzatropine given her missed medication and some facial twitching to see if this would help with this as well. Given that she still having some dizziness unsteadiness and suffered a fall feel at this time she is not in a position to go home. We will ask the hospitalist to observe here for further care. DIAGNOSIS: Fall, RAVIN, left lower extremity pain DISPOSITION: Hospitalist will evaluate Patient was agreeable with this plan. Past Med/Surg History Medical History (Updated 10/19/22 @ 20:58 by Manuel Lincoln M.D.) Allergic rhinitis Anemia Anxiety Asthma RARE RES. INH Bipolar disorder Depression Diverticular disease GERD (gastroesophageal reflux disease) GI bleed PT UNAWARE Russ's thyroiditis Hypertension Hypokalemia due to excessive gastrointestinal loss of potassium Hypothyroidism Intellectual disability Poor historian Post-ERCP acute pancreatitis Pre-diabetes Surgical History H/O colonoscopy H/O endoscopy History of tooth extraction Hx laparoscopic cholecystectomy Family History Father Coronary heart disease Social History Smoking Status: Never smoker Second Hand Exposure: No; Do You Dip or Chew Tobacco: No; Hx Alcohol Use: No Hx Substance Use: No Preferred Language: Faroese Communication Ability: Effective Resident Care Coordinator Required: No Beliefs That Will Affect Care: None Current Living Situation: Alone Current Living Situation Comment: appartment Feels Safe at Home: Yes Assistive Devices: Walker Allergies Allergies Allergy/AdvReac Type Severity Reaction Status Date / Time No Known Drug Allergies Allergy Unknown Verified 10/19/22 17:59 Home Meds Home Medications Medication Instructions Recorded Confirmed bupropion HCl 300 mg 24 hr tablet, 300 mg PO QAM 01/19/19 10/19/22 extended release (Wellbutrin XL) olanzapine 5 mg tablet (Zyprexa) 5 mg PO HS 01/19/19 10/19/22 furosemide 20 mg tablet 20 mg PO DAILY 03/17/20 10/19/22 acetaminophen 325 mg tablet 325 - 650 mg PO Q6 PRN Pain 10/19/22 10/19/22 albuterol sulfate 90 mcg/actuation 2 puff inhalation Q4 PRN Wheezing 10/19/22 10/19/22 aerosol inhaler benztropine 0.5 mg tablet 0.5 mg PO BID 10/19/22 10/19/22 famotidine 20 mg tablet 20 mg PO HS 10/19/22 10/19/22 fluoxetine 10 mg capsule 10 mg PO HS 10/19/22 10/19/22 loratadine 10 mg tablet 10 mg PO QAM 10/19/22 10/19/22 prazosin 1 mg capsule 1 mg PO HS 10/19/22 10/19/22 spironolactone 50 mg tablet 50 mg PO AMHS 10/19/22 10/19/22 (Aldactone) Previous Rx's Medication Instructions Recorded levothyroxine 125 mcg tablet 125 mcg PO DAILY 90 days #90 tabs 12/15/21 cholecalciferol (vitamin D3) 25 50 mcg PO DAILY #30 caps 08/14/22 mcg (1,000 unit) capsule pantoprazole 40 mg tablet,delayed 40 mg PO DAILY #90 tabs 08/14/22 release metformin 500 mg tablet,extended 500 mg PO BID #360 tabs 09/18/22 release 24 hr Results & Data (ED) Vital Signs Vital Signs - 24 hr 10/19/22 14:22 10/19/22 16:07 10/19/22 16:05 Temperature 36.6 C Temperature Source Temporal Artery Scan Pulse Rate 125 H 103 H Pulse Rate [Apical] 101 H Respiratory Rate 20 20 Respiratory Effort / Characteristics Non-Labored Respiratory Depth Normal Blood Pressure 133/60 Blood Pressure [Left Arm] 149/87 H Blood Pressure Mean 84 Blood Pressure Mean [Left Arm] 107 Blood Pressure Position [Left Arm] Sitting Pulse Oximetry 98 98 Oxygen Delivery Method Room Air Room Air Sepsis Recent Fever Within 48 Hours No Sepsis New/Unexplained Change in Mental Status N/A Sepsis Action Taken by Nursing No Action Required Laboratory Data 10/19/22 14:58 10/19/22 14:58 Lab Results 10/19/22 10/19/22 10/19/22 Range/Units 14:58 14:58 14:58 WBC 11.92 H (4.8-10.8) K/ul RBC 4.79 (4.20-5.40) M/uL Hgb 14.1 (12.0-16.0) g/dl Hct 40.6 (37.0-47.0) % MCV 84.8 (80.0-100.0) fL MCH 29.4 (25.0-34.0) pg MCHC 34.7 (32.0-36.0) g/dL RDW Std Deviation 38.2 (36.4-46.3) fL RDW Coeff of Sukumar 12.4 (11.5-14.5) % Plt Count 323 (130-400) K/uL MPV 10.4 (9.4-12.4) fL PT 11.0 (9.0-12.0) Seconds INR 1.0 (0.9-1.1) APTT 27.6 (21.0-31.0) Seconds PTT Ratio 1.0 Sodium 135 L (136-145) mmol/L Potassium 3.5 (3.5-5.1) mmol/L Chloride 96 L (98-107) mmol/L Carbon Dioxide 19 L (21-32) mmol/L Anion Gap 20 H (3-11) BUN 35 H (6-23) mg/dl Creatinine 1.44 H (0.6-1.2) mg/dl Est Cr Clr Drug Dosing Not Reportable Est GFR ( Amer) 46.6 ml/min Est GFR (Non-Af Amer) 40.2 ml/min BUN/Creatinine Ratio 24.3 H (10-20) Glucose 86 (70-99(Fasting)) mg/dl Calcium 10.4 H (8.6-10.3) mg/dl Magnesium 1.6 L (1.7-2.4) mg/dl Total Bilirubin 0.6 (0.2-1.0) mg/dl AST 15 (13-39) U/L ALT 14 (7-52) U/L Alkaline Phosphatase 126 H (34-104) U/L Total Creatine Kinase 49 (26-192) U/L Troponin I High Sens 3.9 (0-14) pg/ml Total Protein 8.2 (6.0-8.3) gm/dl Albumin 5.1 H (3.4-5.0) gm/dl Globulin 3.1 (2.5-4.0) gm/dl Albumin/Globulin Ratio 1.6 (0.9-2) SARS-CoV-2, RNA, NAAT (NEGATIVE) 10/19/22 10/19/22 Range/Units 14:58 17:30 WBC (4.8-10.8) K/ul RBC (4.20-5.40) M/uL Hgb (12.0-16.0) g/dl Hct (37.0-47.0) % MCV (80.0-100.0) fL MCH (25.0-34.0) pg MCHC (32.0-36.0) g/dL RDW Std Deviation (36.4-46.3) fL RDW Coeff of Sukumar (11.5-14.5) % Plt Count (130-400) K/uL MPV (9.4-12.4) fL PT (9.0-12.0) Seconds INR (0.9-1.1) APTT (21.0-31.0) Seconds PTT Ratio Sodium (136-145) mmol/L Potassium (3.5-5.1) mmol/L Chloride (98-107) mmol/L Carbon Dioxide (21-32) mmol/L Anion Gap (3-11) BUN (6-23) mg/dl Creatinine (0.6-1.2) mg/dl Est Cr Clr Drug Dosing Est GFR ( Amer) ml/min Est GFR (Non-Af Amer) ml/min BUN/Creatinine Ratio (10-20) Glucose (70-99(Fasting)) mg/dl Calcium (8.6-10.3) mg/dl Magnesium (1.7-2.4) mg/dl Total Bilirubin (0.2-1.0) mg/dl AST (13-39) U/L ALT (7-52) U/L Alkaline Phosphatase (34-104) U/L Total Creatine Kinase Cancelled (26-192) U/L Troponin I High Sens Cancelled (0-14) pg/ml Total Protein (6.0-8.3) gm/dl Albumin (3.4-5.0) gm/dl Globulin (2.5-4.0) gm/dl Albumin/Globulin Ratio (0.9-2) SARS-CoV-2, RNA, NAAT NEGATIVE (NEGATIVE) Administered Medications Potassium Chloride/Sodium Chloride (Normal Saline W/20 Meq Kcl) 20 meq in 1,000 mls @ 80 mls/hr IV .[id number] [facility]; Protocol Stop: 10/21/22 07:59 Last Admin: 10/19/22 19:01 Dose: 80 mls/hr Documented By: QGV Discontinued Medications Benztropine Mesylate (Benztropine Mesylate 1 Mg Tab) 1 mg PO NOW STA Stop: 10/19/22 16:17 Last Admin: 10/19/22 16:42 Dose: 1 mg Documented By: QGV Sodium Chloride (Nss 1000ml) 500 mls @ 999 mls/hr IV .Q31M ONE Stop: 10/19/22 16:46 Last Infusion: 10/19/22 17:42 Dose: 0 mls/hr Documented By: Admin: 10/19/22 16:44 Dose: 999 mls/hr Documented By: QGV Imaging Data Radiologist's Impression: Chest X-Ray 10/19/22 14:29 XR chest 1V not portable HISTORY: stroke alert COMPARISON: Chest 03/20/2020. FINDINGS: Cardiac silhouette is normal in size. No pleural effusions. No pneumothorax. Surgical clips noted within the abdomen. There is a punctate calcified granuloma within the left upper lobe, unchanged. Otherwise, the lungs are clear. IMPRESSION: No acute process. ACT 112: Negative or not required by law. Electronically signed by: Niko Velasco M.D. 10/19/2022 4:[address] 10/19/22 14:29 CT OF THE HEAD WITHOUT CONTRAST CLINICAL HISTORY: Neuro deficit, acute, stroke suspected. Trauma. COMPARISON STUDY: Head CT December 30, 2010. CT DOSE: 625.80 mGy.cm TECHNIQUE: Helical axial images of the head were obtained without IV contrast. Automated exposure control was utilized for the study. A dose lowering technique was utilized adhering to the principles of ALARA. FINDINGS: No acute intracranial hemorrhage, midline shift or mass effect is present. The ventricular system is unremarkable. The basal cisterns are patent. No extra-axial collections are present. There are no findings to suggest acute dural sinus thrombosis or acute territorial infarct. No significant calvarial abnormalities are present. Visualized portions of the sinuses and mastoid air cells are clear. There is a small right forehead contusion. IMPRESSION: 1. No acute intracranial findings. 2. Small right forehead contusion. No calvarial fracture. ACT 112: Negative or not required by law. Electronically signed by: Chalino Camara M.D. 10/19/2022 3:15 PM Ankle X-Ray 10/19/22 16:16 LEFT ANKLE 3 VIEWS HISTORY: Left ankle pain. fall COMPARISON: None. FINDINGS: There is no fracture or dislocation. Soft tissues are unremarkable. No radiopaque foreign bodies. Plantar heel spur is noted. IMPRESSION: No fracture or dislocation within the left ankle. ACT 112: Negative or not required by law. Electronically signed by: Niko Velasco M.D. 10/19/2022 4:50 PM Hip/Pelvis X-Ray 10/19/22 16:16 XR hip LT 2V w pelvis CLINICAL HISTORY: Fall. Left hip pain. COMPARISON STUDY: None. FINDINGS: No fracture or dislocation within the pelvis or hips. The sacrum is intact. Soft tissues are unremarkable. Cartilage spaces are maintained for age. IMPRESSION: No fracture or dislocation within the pelvis or hips. ACT 112: Negative or not required by law. Electronically signed by: Niko Velasco M.D. 10/19/2022 4:46 PM Knee X-Ray 10/19/22 16:16 XR knee LT 1 or 2V routine CLINICAL HISTORY: Fall. Left knee pain. COMPARISON STUDY: None. FINDINGS: No fracture or dislocation within the left knee. No significant knee effusion. Soft tissues are unremarkable. IMPRESSION: No fracture or dislocation within the left knee. ACT 112: Negative or not required by law. Electronically signed by: Niko Velasco M.D. 10/19/2022 4:47 PM Discharge Plan Visit Data Chief Complaint: Head Injury, Minor Stated Complaint: FALL, HIT HEAD, LOST CONSCIOUSNESS, DIZZY ED Provider: Manuel Lincoln Discharge Problem: Fall, Dehydration, Lower extremity pain, left Patient Disposition: Admitted As Inpatient Discharge Instructions Interventions: ED Discharge Assessment Last Done: 10/19/22 19:58
--- NOTE | 2022-10-19 16:47 | XRay Report ---
XR hip LT 2V w pelvis CLINICAL HISTORY: Fall. Left hip pain. COMPARISON STUDY: None. FINDINGS: No fracture or dislocation within the pelvis or hips. The sacrum is intact. Soft tissues ar e unremarkable. Cartilage spaces are maintained for age. IMPRESSION: No fracture or dislocation within the pelvis or hips. ACT 112: Negative or not required by law. Electronically signed by: Niko Velasco M.D. 10/19/2022 4:46 PM
--- NOTE | 2022-10-19 16:49 | XRay Report ---
XR knee LT 1 or 2V routine CLINICAL HISTORY: Fall. Left knee pain. COMPARISON STUDY: None. FINDINGS: No fracture or dislocation within the left knee. No significant knee effusion. Soft tissues are unremarkable. IMPRESSION: No fracture or dislocation within the left knee. ACT 112: Negative or not required by law. Electronically signed by: Niko Velasco M.D. 10/19/2022 4:47 PM
--- NOTE | 2022-10-19 16:52 | XRay Report ---
LEFT ANKLE 3 VIEWS HISTORY: Left ankle pain. fall COMPARISON: None. FINDINGS: There is no fracture or dislocation. Soft tissues are unremarkable. No radiopaque foreign b odies. Plantar heel spur is noted. IMPRESSION: No fracture or dislocation within the left ankle. ACT 112: Negative or not required by law. Electronically signed by: Niko Velasco M.D. 10/19/2022 4:50 PM
--- NOTE | 2022-10-19 18:29 | History & Physical Report ---
Date of Service October 19, 2022 Assessment & Plan (1) Extrapyramidal movement disorder: Plan: Likely secondary to Cogentin withdrawal(-about 1 month ago Cogentin was taken off due to sedation) Restarted again for the last 2 days or so Received 1 mg in the emergency room We will continue her usual doses (2) Dizziness and giddiness: Plan: Has been complaining of dizziness for the last few days No associated chest symptoms and no shortness of breath Status post fall with face and head injury CT scan no acute findings except small right forehead contusion Other skeletal survey including knee x-ray, hip and pelvis x-ray and ankle x-ray are unremarkable Get PT and OT evaluation down the line (3) Acute kidney injury: Plan: Has had 1 big diarrhea a few days back Reportedly has been eating and drinking enough Noted to have increasing BUN and creatinine likely secondary to dehydration RAVIN seems to be due to dehydration Will start intravenous fluid and monitor PRP (4) Dehydration: Plan: As above (5) Hypothyroidism: Plan: Continue supplement (6) Intellectual disability: (7) GERD (gastroesophageal reflux disease): Plan: Continue PPI and H2 della (8) CAH 21OH (congenital adrenal hyperplasia due to 21-hydroxylase deficiency), late onset: Plan: Will observe in the hospital DVT prophylaxis SCDs for now CODE STATUS Full History of Present Illness Chief Complaint: Abnormal movements involving the face and extremities, dizziness with fall and facial injury Primary Care Provider: Becky Olson MD She is a 56-year-old female with significant past medical history of schizophrenia, bipolar affective disorder, depression with anxiety, mild intellectual disability, benign neoplasm of the adrenal gland, GERD, hyperlipidemia, hypothyroidism and prediabetes apparently has been complaining of shakiness involving the extremities for the last few days. She denies any fever and or chills associated with it and she has been eating and drinking reasonably according to her. She has had 1 loose stool a few days back. She fell last night and injured her face and could not be able to get out of from the fall and was on the floor. She was seen by the care worker and was brought into the emergency room for further evaluation. Apparently she has mild intellectual impairment and lives alone independently. She was on Cogentin before and that was taken off due to excessive sleepiness about a month ago. She was having abnormal movement involving the extremities and face to some extent and was seen by her primary care physician on of this month and before that day [facility] She did not get the medications as of yet. She is here in the emergency room with fall as a mention earlier. She denies any respiratory, cardiac, GI or problems but complains to have dizziness and noted to have abnormal movements involving the face eyes and neck during examination. Allergies Allergy/AdvReac Type Severity Reaction Status Date / Time No Known Drug Allergies Allergy Unknown Verified 10/19/22 17:59 Home Medications Medication Instructions Recorded Confirmed Type bupropion HCl 300 mg 24 hr tablet, 300 mg PO QAM 01/19/19 10/19/22 History extended release (Wellbutrin XL) olanzapine 5 mg tablet (Zyprexa) 5 mg PO HS 01/19/19 10/19/22 History furosemide 20 mg tablet 20 mg PO DAILY 03/17/20 10/19/22 History levothyroxine 125 mcg tablet 125 mcg PO DAILY 90 days #90 tabs 12/15/21 10/19/22 Rx cholecalciferol (vitamin D3) 25 50 mcg PO DAILY #30 caps 08/14/22 10/19/22 Rx mcg (1,000 unit) capsule pantoprazole 40 mg tablet,delayed 40 mg PO DAILY #90 tabs 08/14/22 10/19/22 Rx release metformin 500 mg tablet,extended 500 mg PO BID #360 tabs 09/18/22 10/19/22 Rx release 24 hr acetaminophen 325 mg tablet 325 - 650 mg PO Q6 PRN Pain 10/19/22 10/19/22 History albuterol sulfate 90 mcg/actuation 2 puff inhalation Q4 PRN Wheezing 10/19/22 10/19/22 History aerosol inhaler benztropine 0.5 mg tablet 0.5 mg PO BID 10/19/22 10/19/22 History famotidine 20 mg tablet 20 mg PO HS 10/19/22 10/19/22 History fluoxetine 10 mg capsule 10 mg PO HS 10/19/22 10/19/22 History loratadine 10 mg tablet 10 mg PO QAM 10/19/22 10/19/22 History prazosin 1 mg capsule 1 mg PO HS 10/19/22 10/19/22 History spironolactone 50 mg tablet 50 mg PO AMHS 10/19/22 10/19/22 History (Aldactone) Past Med/Surg History Medical History (Updated 10/19/22 @ 18:25 by Gillian Craven MD) Allergic rhinitis Anemia Anxiety Asthma RARE RES. INH Bipolar disorder Depression Diverticular disease GERD (gastroesophageal reflux disease) GI bleed PT UNAWARE Russ's thyroiditis Hypertension Hypokalemia due to excessive gastrointestinal loss of potassium Hypothyroidism Intellectual disability Poor historian Post-ERCP acute pancreatitis Pre-diabetes Surgical History H/O colonoscopy H/O endoscopy History of tooth extraction Hx laparoscopic cholecystectomy Family History Father Coronary heart disease Social History Smoking Status: Never smoker Second Hand Exposure: No; Do You Dip or Chew Tobacco: No; Hx Alcohol Use: No Hx Substance Use: No Preferred Language: Thai Communication Ability: Effective 7Th Grade Teacher Required: No Beliefs That Will Affect Care: None Current Living Situation: Alone Current Living Situation Comment: appartment Feels Safe at Home: Yes Assistive Devices: Walker Review of Systems Review of Systems: All systems reviewed and are unremarkable except as mentioned in H&P Physical Exam Physical Exam: Lying in bed with dystonic movements involving the face, neck and eyes Constitutional: + ill appearing and average body habitus Eyes: PERRL, conjunctivae normal, anicteric sclerae ENMT: external ear and nose normal, oropharynx normal Neck: trachea midline, no thyromegaly Respiratory: no respiratory distress Auscultation: lungs clear to auscultation bilaterally Cardiovascular: Rate/Rhythm: regular rate, regular rhythm and + tachycardic Musculoskeletal: Has some pain with movement of the lower extremities Neurologic: Alert and awake, generally weak. Has significant abnormal movements involving the neck, face and eyes. Bruising involving the bridge of the nose Results & Data Results & Data Vital Signs (Past 12 Hours) Vital Signs Temp Pulse Pulse Resp BP BP Pulse Ox 10/19/22 16:05 101 H 20 149/87 H 98 10/19/22 16:07 103 H 10/19/22 14:22 36.6 C 125 H 20 133/60 98 O2 Del Method 10/19/22 16:05 Room Air 10/19/22 16:07 07/24/23 14:22 Room Air Laboratory Results Short CBC 10/19/22 Range/Units 14:58 WBC 11.92 H (4.8-10.8) K/ul Hgb 14.1 (12.0-16.0) g/dl Hct 40.6 (37.0-47.0) % Plt Count 323 (130-400) K/uL BMP 10/19/22 14:58 Sodium 135 L Potassium 3.5 Chloride 96 L Carbon Dioxide 19 L BUN 35 H Creatinine 1.44 H Glucose 86 Calcium 10.4 H Cardiac Enzymes 10/19/22 10/19/22 Range/Units 14:58 14:58 Total Creatine Kinase 49 Cancelled (26-192) U/L Liver Function 10/19/22 Range/Units 14:58 Total Bilirubin 0.6 (0.2-1.0) mg/dl AST 15 (13-39) U/L ALT 14 (7-52) U/L Alkaline Phosphatase 126 H (34-104) U/L Albumin 5.1 H (3.4-5.0) gm/dl Code Status & VTE Plan VTE Prophylaxis Plan VTE Prophylaxis will be ordered: Yes
[2022-10-19] MEDS: NSS + 20MEQ KCL 20 MEQ/1,000 ML BAG IV SCH (19:01)
[2022-10-19] MEDS ORDERED: ALBUTEROL HFA 8 GM INHALER INH PRN (20:33)
[2022-10-19] MEDS ORDERED: ACETAMINOPHEN 325 MG TAB PO PRN (20:33)
[2022-10-19] MEDS ORDERED: Patient's HEIGHT &/or WEIGHT Needed SCH (20:45)
[2022-10-19] MEDS: SPIRONOLACTONE 25 MG TAB PO SCH (22:25)
[2022-10-19] MEDS: BENZTROPINE MESYLATE 0.5 MG TAB PO SCH (22:26)
[2022-10-19] MEDS: FAMOTIDINE 20 MG TAB PO SCH (22:26)
[2022-10-19] MEDS: FLUoxetine HCL 10 MG CAP PO SCH (22:27)
[2022-10-19] MEDS: OLANZapine 5 MG TABLET PO SCH (22:27)
[2022-10-19] MEDS: PRAZOSIN HCL 1 MG CAP PO SCH (22:27)
[2022-10-20] MEDS: LEVOTHYROXINE SODIUM 125 MCG TABLET PO SCH (05:38)
[2022-10-20 07:56] LABS: Basophils # (auto) 0.06 K/uL (0-0.2); Basophils % (auto) 0.9 %; Eosinophils # (auto) 0.12 K/uL (0-0.50); Eosinophils % (auto) 1.8 %; Hematocrit (blood only) 34.3 % (37.0-47.0); Hemoglobin 11.7 g/dl (12.0-16.0); Immature Granulocytes # (auto) 0.02 K/uL (0.01-0.20); Immature Granulocytes % (auto) 0.3 %; Lymphocytes # (auto) 1.89 K/uL (1.2-3.4); Lymphocytes % (auto) 28.6 %; Mean Corpuscular Hemoglobin 29.9 pg (25.0-34.0); Mean Corpuscular Hgb Conc 34.1 g/dL (32.0-36.0); Mean Corpuscular Volume 87.7 fL (80.0-100.0); Mean Platelet Volume 10.2 fL (9.4-12.4); Monocytes # (auto) 0.55 K/uL (0.11-0.59); Monocytes % (auto) 8.3 %; Neutrophils # (auto) 3.97 K/uL (1.40-6.50); Neutrophils % (auto) 60.1 %; Platelet Count 231 K/uL (130-400); RDW Coefficient of Variation 12.6 % (11.5-14.5); RDW Standard Deviation 40.3 fL (36.4-46.3); Red Blood Count 3.91 M/uL (4.20-5.40); White Blood Count 6.61 K/ul (4.8-10.8)
[2022-10-20] MEDS: SPIRONOLACTONE 25 MG TAB PO SCH ×2 (08:09→20:46)
[2022-10-20] MEDS: LORATADINE 10 MG TAB PO SCH (08:09)
[2022-10-20] MEDS: buPROPion XL 300 MG TABCR PO SCH (08:09)
[2022-10-20] MEDS: BENZTROPINE MESYLATE 0.5 MG TAB PO SCH ×2 (08:09→20:16)
[2022-10-20] MEDS: PANTOprazole 40 MG TAB PO SCH (08:09)
[2022-10-20] MEDS: NSS + 20MEQ KCL 20 MEQ/1,000 ML BAG IV SCH ×2 (08:09→20:46)
[2022-10-20] MEDS: CHOLECALCIFEROL 1,000 UNITS 25 MCG TAB PO SCH (08:10)
[2022-10-20 08:25] LABS: BUN Creatinine Ratio 34.7 (10-20); Calcium 9.2 mg/dl (8.6-10.3); Creatinine Clr Calc Pharmacy 65.2 ml/min; Est GFR (African American) 77.1 ml/min; Est GFR (Non-African American) 66.5 ml/min
[2022-10-20 12:16] LABS: Appearance Urine Clear (Clear); Bilirubin Urine Negative (Negative); Blood Urine Negative (Negative); Color Urine Yellow; Glucose Urine UA Negative (Negative); Ketones Urine 2+ (Negative); Leukocyte Esterase Urine Negative (Negative); Nitrite Urine Negative (Negative); Protein Urine Negative (Negative); Specific Gravity Urine 1.014 (1.000-1.030); Urobilinogen Urine Negative (Negative); pH Urine 5.5 (4.5-7.5)
--- NOTE | 2022-10-20 14:18 | Hospitalist Progress Note ---
Date of Service October 20, 2022 Assessment & Plan (1) Extrapyramidal movement disorder: Plan: Likely secondary to Cogentin withdrawal(-about 1 month ago Cogentin was taken off due to sedation) Restarted again for the last 2 days or so Received 1 mg in the emergency room We will continue her usual doses Clinically much better with significant improvement of the extraparametal movements We will continue Cogentin for now-Will need follow-up with her psychiatrist on discharge (2) Dizziness and giddiness: Plan: Has been complaining of dizziness for the last few days No associated chest symptoms and no shortness of breath Status post fall with face and head injury CT scan no acute findings except small right forehead contusion Other skeletal survey including knee x-ray, hip and pelvis x-ray and ankle x-ray are unremarkable Get PT and OT evaluation down the line Clinically much better and will ask for PT and OT evaluation (3) Acute kidney injury: Plan: Has had 1 big diarrhea a few days back Reportedly has been eating and drinking enough Noted to have increasing BUN and creatinine likely secondary to dehydration RAVIN seems to be due to dehydration Will start intravenous fluid and monitor PRP Creatinine has been normalized Advised more fluid intake and decrease the IV infusion (4) Dehydration: Plan: As above (5) Hypothyroidism: Plan: Continue supplement (6) Intellectual disability: (7) GERD (gastroesophageal reflux disease): Plan: Continue PPI and H2 della (8) CAH 21OH (congenital adrenal hyperplasia due to 21-hydroxylase deficiency), late onset: Plan: Will observe in the hospital DVT prophylaxis SCDs for now CODE STATUS Full Admission and Anticipated Discharge Date Admission Date: October 19, 2022 Subjective 10/20/2022 The patient was seen and examined in medical telemetry and in the presence of the caregiver She has been feeling much better Her extraparametal symptoms have improved a lot, mentally she is much clear and her renal function has improved We will get PT OT evaluation and possible discharge tomorrow Review of Systems Review of Systems: All systems reviewed and are unremarkable except as mentioned in H&P Physical Exam Physical Exam: Lying in bed with dystonic movements involving the face, neck and eyes Constitutional: + ill appearing and average body habitus Eyes: PERRL, conjunctivae normal, anicteric sclerae ENMT: external ear and nose normal, oropharynx normal Neck: trachea midline, no thyromegaly Respiratory: no respiratory distress Auscultation: lungs clear to auscultation bilaterally Cardiovascular: Rate/Rhythm: regular rate, regular rhythm and + tachycardic Gastrointestinal (Abdomen): Inspection/Auscultation: normal bowel sounds; abdomen not distended Percussion/Palpation: abdomen soft; abdomen nontender Musculoskeletal: No acute arthritis involving any of the joint Neurologic: Abnormal movements involving the upper extremities, facial muscles and ocular m uscles have improved a lot Lymphatic: no cervical or axillary lymphadenopathy Results & Data Results & Data Vital Signs (Past 12 Hours) Vital Signs Temp Pulse Pulse Resp BP Pulse Ox O2 Del Method 10/20/22 10:50 36.6 C 71 16 114/74 95 Room Air 10/20/22 08:00 70 10/20/22 08:03 36.4 C L 75 18 102/66 93 Room Air 10/20/22 04:14 36.5 C 84 18 115/69 94 Room Air Laboratory Results Short CBC 10/19/22 10/20/22 Range/Units 14:58 07:15 WBC 11.92 H 6.61 (4.8-10.8) K/ul Hgb 14.1 11.7 L (12.0-16.0) g/dl Hct 40.6 34.3 L (37.0-47.0) % Plt Count 323 231 (130-400) K/uL BMP 10/19/22 10/20/22 14:58 07:15 Sodium 135 L 138 Potassium 3.5 4.0 Chloride 96 L 105 Carbon Dioxide 19 L 22 BUN 35 H 33 H Creatinine 1.44 H 0.95 D Glucose 86 82 Calcium 10.4 H 9.2 Cardiac Enzymes 10/19/22 10/19/22 10/20/22 Range/Units 14:58 14:58 07:15 Total Creatine Kinase 49 Cancelled 33 (26-192) U/L Liver Function 10/19/22 Range/Units 14:58 Total Bilirubin 0.6 (0.2-1.0) mg/dl AST 15 (13-39) U/L ALT 14 (7-52) U/L Alkaline Phosphatase 126 H (34-104) U/L Albumin 5.1 H (3.4-5.0) gm/dl Urine 10/20/22 Range/Units 11:58 Urine Color Yellow Urine Appearance Clear (Clear) Urine pH 5.5 (4.5-7.5) Ur Specific [place] 1.014 (1.000-1.030) Urine Protein Negative (Negative) Urine Glucose (UA) Negative (Negative) Medications Administered Current Inpatient Medications Acetaminophen (Acetaminophen 325 Mg Tab) 650 mg PO Q4H PRN PRN Reason: Pain Stop: 11/19/22 11:22 Albuterol (Albuterol Hfa 8 Gm Inhaler) 2 puffs INH Q4 PRN PRN Reason: Wheezing Stop: 11/18/22 20:32 Benztropine Mesylate (Benztropine Mesylate 0.5 Mg Tab) 0.5 mg PO BID JACINTA Stop: 11/18/22 20:59 Last Admin: 10/20/22 08:09 Dose: 0.5 mg Bupropion HCl (Bupropion Xl 300 Mg Tabcr) 300 mg PO QAM JACINTA Stop: 11/19/22 08:59 Last Admin: 10/20/22 08:09 Dose: 300 mg Famotidine (Famotidine 20 Mg Tab) 20 mg PO HS [facility] Stop: 11/18/22 20:59 Last Admin: 10/19/22 22:26 Dose: 20 mg Fluoxetine HCl (Fluoxetine Hcl 10 Mg Cap) 10 mg PO HS JACINTA Stop: 11/18/22 20:59 Last Admin: 10/19/22 22:27 Dose: 10 mg Potassium Chloride/Sodium Chloride (Normal Saline W/20 Meq Kcl) 20 meq in 1,000 mls @ 80 mls/hr IV .[id number] JACINTA; Protocol Stop: 10/21/22 07:59 Last Admin: 10/20/22 08:09 Dose: 80 mls/hr Levothyroxine Sodium (Levothyroxine Sodium 125 Mcg Tablet) 125 mcg PO DAILYBB JACINTA Stop: 11/19/22 06:29 Last Admin: 10/20/22 05:38 Dose: 125 mcg Loratadine (Loratadine 10 Mg Tab) 10 mg PO QAM JACINTA Stop: 11/19/22 08:59 Last Admin: 10/20/22 08:09 Dose: 10 mg Olanzapine (Olanzapine 5 Mg Tablet) 5 mg PO HS JACINTA Stop: 11/18/22 20:59 Last Admin: 10/19/22 22:27 Dose: 5 mg Pantoprazole Sodium (Pantoprazole 40 Mg Tab) 40 mg PO DAILY JACINTA Stop: 11/19/22 08:59 Last Admin: 10/20/22 08:09 Dose: 40 mg Prazosin HCl (Prazosin Hcl 1 Mg Cap) 1 mg PO HS JACINTA Stop: 11/18/22 20:59 Last Admin: 10/19/22 22:27 Dose: 1 mg Spironolactone (Spironolactone 25 Mg Tab) 50 mg PO AMHS JACINTA Stop: 11/18/22 20:59 Last Admin: 10/20/22 08:09 Dose: 50 mg Vitamin D (Cholecalciferol 1,000 Units 25 Mcg Tab) 2,000 units PO DAILY JACINTA Stop: 11/19/22 08:59 Last Admin: 10/20/22 08:10 Dose: 2,000 units
[2022-10-20] MEDS: ACETAMINOPHEN 325 MG TAB PO PRN (19:23)
[2022-10-20] MEDS ORDERED: oxyCODONE HCL IR 5 MG TAB (IMMEDIATE RELEASE) PO STA (20:14)
[2022-10-20] MEDS: FAMOTIDINE 20 MG TAB PO SCH (20:16)
[2022-10-20] MEDS: FLUoxetine HCL 10 MG CAP PO SCH (20:16)
[2022-10-20] MEDS: OLANZapine 5 MG TABLET PO SCH (20:17)
[2022-10-20] MEDS: PRAZOSIN HCL 1 MG CAP PO SCH (20:17)
[2022-10-21] MEDS: ACETAMINOPHEN 325 MG TAB PO PRN ×3 (04:45→20:50)
[2022-10-21] MEDS: LEVOTHYROXINE SODIUM 125 MCG TABLET PO SCH (04:45)
[2022-10-21 06:30] LABS: Basophils # (auto) 0.05 K/uL (0-0.2); Eosinophils # (auto) 0.13 K/uL (0-0.50); Eosinophils % (auto) 2.5 %; Hematocrit (blood only) 30.8 % (37.0-47.0); Hemoglobin 10.5 g/dl (12.0-16.0); Immature Granulocytes # (auto) 0.01 K/uL (0.01-0.20); Immature Granulocytes % (auto) 0.2 %; Lymphocytes # (auto) 2.06 K/uL (1.2-3.4); Lymphocytes % (auto) 40.1 %; Mean Corpuscular Hemoglobin 30.1 pg (25.0-34.0); Mean Corpuscular Hgb Conc 34.1 g/dL (32.0-36.0); Mean Corpuscular Volume 88.3 fL (80.0-100.0); Monocytes # (auto) 0.41 K/uL (0.11-0.59); Neutrophils # (auto) 2.48 K/uL (1.40-6.50); Neutrophils % (auto) 48.2 %; Platelet Count 201 K/uL (130-400); RDW Coefficient of Variation 12.7 % (11.5-14.5); RDW Standard Deviation 40.9 fL (36.4-46.3); Red Blood Count 3.49 M/uL (4.20-5.40); White Blood Count 5.14 K/ul (4.8-10.8)
[2022-10-21 06:50] LABS: BUN Creatinine Ratio 31.6 (10-20); Calcium 8.9 mg/dl (8.6-10.3); Creatinine Clr Calc Pharmacy 78.4 ml/min; Est GFR (African American) 96.3 ml/min; Est GFR (Non-African American) 83.1 ml/min; Magnesium 1.7 mg/dl (1.7-2.4); Phosphorus 2.7 mg/dl (2.5-4.9); Potassium 4.2 mmol/L (3.5-5.1)
[2022-10-21] MEDS: BENZTROPINE MESYLATE 0.5 MG TAB PO SCH ×2 (08:20→22:06)
[2022-10-21] MEDS: buPROPion XL 300 MG TABCR PO SCH (08:20)
[2022-10-21] MEDS: PANTOprazole 40 MG TAB PO SCH (08:21)
[2022-10-21] MEDS: CHOLECALCIFEROL 1,000 UNITS 25 MCG TAB PO SCH (08:22)
[2022-10-21] MEDS: LORATADINE 10 MG TAB PO SCH (08:22)
[2022-10-21] MEDS: SPIRONOLACTONE 25 MG TAB PO SCH ×2 (11:18→20:51)
--- NOTE | 2022-10-21 12:36 | Hospitalist Progress Note ---
Date of Service October 21, 2022 Assessment & Plan (1) Extrapyramidal movement disorder: Plan: Likely secondary to EPS due to being off Cogentin Restarted again here ( per patient's CM, her psychiatrist had restarted her cogentin 1 week ago but pharmacy had not yet filled her medications) Received 1 mg in the emergency room We will continue her usual doses Clinically much better with significant improvement of the extraparametal movements Patient needs to follow up with her psychiatrist after discharge for further management of her medications, whether Zyprexa should be discontinued due to EPS (2) Dizziness and giddiness: Plan: Has been complaining of dizziness for the last few days No associated chest symptoms and no shortness of breath Status post fall with face and head injury CT scan no acute findings except small right forehead contusion Other skeletal survey including knee x-ray, hip and pelvis x-ray and ankle x-ray are unremarkable Will ask for PT/OT evaluation (3) Acute kidney injury: Plan: resolved after IV fluid continue to encourage oral intake (4) Dehydration: Plan: As above (5) Hypothyroidism: Plan: Continue supplement (6) Intellectual disability: (7) GERD (gastroesophageal reflux disease): Plan: Continue PPI and H2 edlla (8) CAH 21OH (congenital adrenal hyperplasia due to 21-hydroxylase deficiency), late onset: Plan: Will observe in the hospital DVT prophylaxis SCDs for now CODE STATUS Full Admission and Anticipated Discharge Date Admission Date: October 19, 2022 Subjective Reports left hip pain, declines tylenol or lidocaine patch Discussed her care/medication with Kristine Whitten ([phone]) patient's outpatient case management coordinator. Questions/issues were addressed. Her CM is concerned about Yessy returning home too soon. Explained to her that we are still waiting for PT evaluation Physical Exam Physical Exam: Laying in bed, no acute distress, answers simple questions ENMT: face bruising Respiratory: breathing comfortably on room air, no wheezing/rhonchi/rales Cardiovascular: Regular rate and rhythm, no murmurs/rubs Gastrointestinal (Abdomen): soft, non tender Musculoskeletal: No edema Neurologic: awake, alert, no extremity tremors, spontaneously moving extremities Psychiatric: flat affect Results & Data Results & Data Vital Signs (Past 12 Hours) Vital Signs Temp Pulse Pulse Resp BP Pulse Ox O2 Del Method 10/21/22 11:30 62 10/21/22 11:09 36.7 C 78 18 109/70 93 Room Air 10/21/22 07:28 36.7 C 73 16 104/66 94 Room Air 10/21/22 03:00 36.8 C 68 18 104/66 95 Room Air
[2022-10-21] MEDS: PRAZOSIN HCL 1 MG CAP PO SCH (20:51)
[2022-10-21] MEDS: FLUoxetine HCL 10 MG CAP PO SCH (20:51)
[2022-10-21] MEDS: FAMOTIDINE 20 MG TAB PO SCH (20:52)
[2022-10-21] MEDS: OLANZapine 5 MG TABLET PO SCH (20:52)
[2022-10-22] MEDS: ACETAMINOPHEN 325 MG TAB PO PRN ×2 (01:50→07:50)
[2022-10-22] MEDS: LEVOTHYROXINE SODIUM 125 MCG TABLET PO SCH (06:33)
[2022-10-22] MEDS: CHOLECALCIFEROL 1,000 UNITS 25 MCG TAB PO SCH (07:45)
[2022-10-22] MEDS: SPIRONOLACTONE 25 MG TAB PO SCH ×2 (07:45→20:13)
[2022-10-22] MEDS: buPROPion XL 300 MG TABCR PO SCH (07:46)
[2022-10-22] MEDS: LORATADINE 10 MG TAB PO SCH (07:46)
[2022-10-22] MEDS: PANTOprazole 40 MG TAB PO SCH (07:46)
[2022-10-22] MEDS: BENZTROPINE MESYLATE 0.5 MG TAB PO SCH ×2 (07:46→20:14)
[2022-10-22 09:22] LABS: Basophils # (auto) 0.08 K/uL (0-0.2); Eosinophils # (auto) 0.13 K/uL (0-0.50); Eosinophils % (auto) 1.6 %; Hematocrit (blood only) 37.3 % (37.0-47.0); Hemoglobin 12.6 g/dl (12.0-16.0); Immature Granulocytes # (auto) 0.02 K/uL (0.01-0.20); Immature Granulocytes % (auto) 0.3 %; Lymphocytes # (auto) 1.75 K/uL (1.2-3.4); Lymphocytes % (auto) 22.2 %; Mean Corpuscular Hemoglobin 29.4 pg (25.0-34.0); Mean Corpuscular Hgb Conc 33.8 g/dL (32.0-36.0); Mean Corpuscular Volume 87.1 fL (80.0-100.0); Mean Platelet Volume 10.3 fL (9.4-12.4); Monocytes # (auto) 0.51 K/uL (0.11-0.59); Monocytes % (auto) 6.5 %; Neutrophils # (auto) 5.39 K/uL (1.40-6.50); Neutrophils % (auto) 68.4 %; Platelet Count 270 K/uL (130-400); RDW Coefficient of Variation 12.6 % (11.5-14.5); RDW Standard Deviation 40.1 fL (36.4-46.3); Red Blood Count 4.28 M/uL (4.20-5.40); White Blood Count 7.88 K/ul (4.8-10.8)
[2022-10-22 09:35] LABS: BUN Creatinine Ratio 18.7 (10-20); Calcium 10.1 mg/dl (8.6-10.3); Creatinine Clr Calc Pharmacy 82.6 ml/min; Est GFR (African American) 102.6 ml/min; Est GFR (Non-African American) 88.5 ml/min
[2022-10-22] MEDS ORDERED: oxyCODONE HCL IR 5 MG TAB (IMMEDIATE RELEASE) PO PRN (12:08)
[2022-10-22 13:08] LABS: D Dimer 410 ug/L FEU (0-500)
[2022-10-22] MEDS: ENOXAPARIN INJ 40 MG/0.4 ML SYR SQ SCH (13:25)
--- NOTE | 2022-10-22 18:56 | Hospitalist Progress Note ---
Date of Service October 22, 2022 Assessment & Plan (1) Extrapyramidal movement disorder: Plan: Likely secondary to EPS due to being off Cogentin Restarted again here ( per patient's CM, her psychiatrist had restarted her cogentin 1 week ago but pharmacy had not yet filled her medications) Received 1 mg in the emergency room We will continue her usual doses Clinically much better with significant improvement of the extraparametal movements Patient needs to follow up with her psychiatrist after discharge for further management of her medications, whether Zyprexa should be discontinued due to EPS (2) Dizziness and giddiness: Plan: Has been complaining of dizziness for the last few days No associated chest symptoms and no shortness of breath Status post fall with face and head injury CT scan no acute findings except small right forehead contusion Other skeletal survey including knee x-ray, hip and pelvis x-ray and ankle x-ray are unremarkable Evaluated by PT/OT, recommended rehab. No arrhythmias noted on telemetry. Just sinus tachycardia. D dimer is negative (3) Acute kidney injury: Plan: resolved after IV fluid continue to encourage oral intake (4) Dehydration: Plan: As above (5) Hypothyroidism: Plan: check TSH in AM (6) Intellectual disability: (7) GERD (gastroesophageal reflux disease): Plan: Continue PPI and H2 della (8) CAH 21OH (congenital adrenal hyperplasia due to 21-hydroxylase deficiency), late onset: Plan: DVT prophylaxis SQ lovenox CODE STATUS Full Disposition- Plan to discharge to [facility] tomorrow if remains medically stable Admission and Anticipated Discharge Date Admission Date: October 19, 2022 Subjective Reports back is "sore" HR on telemetry noted to intermittently go up to 120-130s (sinus). Trial of 1 small dose of oxycodone 2.5mg Woke up this morning and felt dizzy but resolved after breakfast. Review of Systems Review of Systems: as above Physical Exam Physical Exam: sitting in bed, no acute distress, non toxic Respiratory: breathing comfortably, no wheezing/rhonchi/rales Cardiovascular: +tachycardic but regular Gastrointestinal (Abdomen): soft, non tender, non distended Musculoskeletal: no edema Neurologic: awake, alert Results & Data Results & Data Vital Signs (Past 12 Hours) Vital Signs Temp Pulse Pulse Resp BP Pulse Ox O2 Del Method 10/22/22 10:52 36.7 C 56 L 18 106/75 98 Room Air 10/22/22 08:00 86 10/22/22 08:01 36.9 C 58 L 16 120/81 96 Room Air 10/22/22 03:00 36.8 C 70 20 152/76 H 93 Room Air
[2022-10-22] MEDS: FAMOTIDINE 20 MG TAB PO SCH (20:13)
[2022-10-22] MEDS: FLUoxetine HCL 10 MG CAP PO SCH (21:53)
[2022-10-22] MEDS: OLANZapine 5 MG TABLET PO SCH (21:53)
[2022-10-22] MEDS: PRAZOSIN HCL 1 MG CAP PO SCH (21:53)
[2022-10-23] MEDS: LEVOTHYROXINE SODIUM 125 MCG TABLET PO SCH (05:58)
[2022-10-23 07:16] LABS: Thyroid Stimulating Hormone < 0.010 uIu/ml (0.300-4.500)
[2022-10-23 07:23] LABS: BUN Creatinine Ratio 21.3 (10-20); Calcium 9.6 mg/dl (8.6-10.3); Creatinine Clr Calc Pharmacy 77.4 ml/min; Est GFR (African American) 94.9 ml/min; Est GFR (Non-African American) 81.8 ml/min; Magnesium 1.6 mg/dl (1.7-2.4); Potassium 4.5 mmol/L (3.5-5.1)
[2022-10-23 07:52] LABS: T4 Free Thyroxine 1.93 ng/dl (0.61-1.60)
[2022-10-23] MEDS: BENZTROPINE MESYLATE 0.5 MG TAB PO SCH (09:19)
[2022-10-23] MEDS: SPIRONOLACTONE 25 MG TAB PO SCH (09:19)
[2022-10-23] MEDS: ENOXAPARIN INJ 40 MG/0.4 ML SYR SQ SCH (09:19)
[2022-10-23] MEDS: buPROPion XL 300 MG TABCR PO SCH (09:19)
[2022-10-23 09:22] LABS: Hematocrit (blood only) 32.7 % (37.0-47.0); Hemoglobin 11.1 g/dl (12.0-16.0); Mean Corpuscular Hemoglobin 30.3 pg (25.0-34.0); Mean Corpuscular Hgb Conc 33.9 g/dL (32.0-36.0); Mean Corpuscular Volume 89.3 fL (80.0-100.0); Mean Platelet Volume 10.6 fL (9.4-12.4); Platelet Count 228 K/uL (130-400); RDW Coefficient of Variation 12.7 % (11.5-14.5); RDW Standard Deviation 41.6 fL (36.4-46.3); Red Blood Count 3.66 M/uL (4.20-5.40); White Blood Count 6.17 K/ul (4.8-10.8)
[2022-10-23] MEDS ORDERED: MAGNESIUM SULFATE / D5W 1 GM/100 ML BAG IV ONE (09:50)
[2022-10-23] MEDS: LORATADINE 10 MG TAB PO SCH (10:21)
[2022-10-23] MEDS: CHOLECALCIFEROL 1,000 UNITS 25 MCG TAB PO SCH (10:21)
[2022-10-23] MEDS: PANTOprazole 40 MG TAB PO SCH (11:20)
--- NOTE | 2022-10-27 21:26 | Discharge Summary ---
Date of Service October 27, 2022 Date of discharge 10/23/2022 Admission HPI Per Admitting Provider She is a 56-year-old female with significant past medical history of schizophrenia, bipolar affective disorder, depression with anxiety, mild intellectual disability, benign neoplasm of the adrenal gland, GERD, hyperlipidemia, hypothyroidism and prediabetes apparently has been complaining of shakiness involving the extremities for the last few days. She denies any fever and or chills associated with it and she has been eating and drinking reasonably according to her. She has had 1 loose stool a few days back. She fell last night and injured her face and could not be able to get out of from the fall and was on the floor. She was seen by the care worker and was brought into the emergency room for further evaluation. Apparently she has mild intellectual impairment and lives alone independently. She was on Cogentin before and that was taken off due to excessive sleepiness about a month ago. She was having abnormal movement involving the extremities and face to some extent and was seen by her primary care physician on of this month and before that day she was seen by her psychiatrist in Cogentin was put back in. She did not get the medications as of yet. She is here in the emergency room with fall as a mention earlier. She denies any respiratory, cardiac, GI or problems but complains to have dizziness and noted to have abnormal movements involving the face eyes and neck during examination. Principal Diagnosis Extrapyramidal symptoms off Benztropine Multiple falls at home Pain related to falls RAVIN Discharge Exam Patient was seen on day of discharge in her room. She appears in no acute distress. Pleasant and comfortable. Breathing on room air, no wheezing/rhonchi/rales No events on telemetry overnight. Heart--regular rate and rhythm Psych-- calm and cooperative Discharge Data Allergies Allergy/AdvReac Type Severity Reaction Status Date / Time No Known Drug Allergies Allergy Unknown Verified 10/19/22 17:59 Consultations 10/19/22 17:23 ED Decision to Admit Stat Ordered Studies 10/19/22 14:29 CT head/brain wo con Stat Hospital Course (1) Extrapyramidal movement disorder: Likely secondary to EPS due to being off Cogentin Restarted again here ( per patient's CM, her psychiatrist had restarted her cogentin 1 week ago but her pharmacy had not yet filled her medications) She was restarted on Cogentin at home doses with significant improvement of her EPS Patient needs to follow up with her psychiatrist after discharge for further management of her medications and to discuss whether Zyprexa should be discontinued due to EPS (2) Dizziness and giddiness: (3) Acute kidney injury: resolved after IV fluid continue to encourage oral intake (4) Dehydration: (5) Hypothyroidism: (6) Intellectual disability: (7) GERD (gastroesophageal reflux disease): (8) CAH 21OH (congenital adrenal hyperplasia due to 21-hydroxylase deficiency), late onset: Plan Patient evaluated by PT and rehab was recommended. Total Time Total Time Spent Total Time Spent (In Minutes): 35 Discharge Plan Discharge Items Patient Disposition: Transfer Inpatient Rehab Fac Reason For Visit: DEHYDRATION FALL ,EXTRAPYRAMIDAL MOVEMENT Discharge Diagnosis: Extrapyramidal symptoms off Benztropine Multiple falls at home Pain related to falls RAVIN Condition on Discharge: Good Activity: Resume your previous activity Non-emergency contact: Primary Care Provider and Psychiatrist Call non-emergency contact if: you have any medication questions Follow-up/Referrals: Becky Olson MD [Primary Care Provider] - Diet: Carb Consistent or DM2 Addtl Attending Provider Instructions: Your Benztropine was restarted here at 0.5mg twice a day Please follow up with your psychiatrist for management of your psychiatric medications (Olanzapine, Benztropine and Bupropion) and to decide whether olanzapine needs to be discontinued due to your tremors/tremulousness (Extrapyramidal symptoms) Pending Studies at Discharge: No Stand-Alone Forms: My [facility] Skilled Items Patient informed of condition?: Yes DNR: No Discharge Level of Care: Acute rehab Communicable Disease: No Discharge Prognosis: Stable Lines: None Urinary Catheter: No Medications and DC Order Prescriptions: New oxycodone 5 mg tablet 2.5 mg PO DAILY PRN (Reason: pain) Qty: 7 0RF Continued levothyroxine 125 mcg tablet 125 mcg PO DAILY 90 Days Qty: 90 3RF pantoprazole 40 mg tablet,delayed release (DR/EC) 40 mg PO DAILY Qty: 90 3RF cholecalciferol (vitamin D3) 25 mcg (1,000 unit) capsule 50 mcg PO DAILY Qty: 30 3RF metformin 500 mg tablet extended release 24 hr 500 mg PO BID Qty: 360 3RF olanzapine [Zyprexa] 5 mg tablet 5 mg PO HS bupropion HCl [Wellbutrin XL] 300 mg tablet extended release 24 hr 300 mg PO QAM furosemide 20 mg tablet 20 mg PO DAILY benztropine 0.5 mg tablet 0.5 mg PO BID prazosin 1 mg capsule 1 mg PO HS fluoxetine 10 mg capsule 10 mg PO HS famotidine 20 mg tablet 20 mg PO HS albuterol sulfate 90 mcg/actuation Hfa Aerosol Inhaler 2 puff INHALATION Q4 PRN (Reason: Wheezing) spironolactone [Aldactone] 50 mg tablet 50 mg PO AMHS acetaminophen 325 mg Tablet 325 - 650 mg PO Q6 PRN (Reason: Pain) loratadine 10 mg Tablet 10 mg PO QAM Discharge Orders: Discharge Order (Routine); Ordered 10/23/22 Ordered By: Asha Henson/Other Patient Handouts: Falls Prevent Use Cane Walker, Falls Prevent Outside, Preventing Falls: Staying Active Admission Data Admit Date/Time: 10/19/22 18:14 Attending Provider: Asha Curtis Admit Provider: Gillian Craven Primary Care Provider: Becky Olson Other Providers: Gillian Craven ; [facility] Other Interventions: Discharge Summary Assessment (RN) Last Done: 10/23/22 14:31
== END 2022-10-23 15:12 | DRG 57 ==
LOC: ED 14:12 → 2N 18:14 → SUATTDRO 18:14 → 2N 19:58

== ENCOUNTER 2024-01-24 10:18 | Inpatient (IN) ==
--- NOTE | 2024-01-24 10:55 | Emergency Department Note ---
Impression & Plan Generalized weakness, Ambulatory dysfunction ED Provider Note HISTORY OF PRESENT ILLNESS: Patient is a 58-year-old female presenting with right leg weakness. Continuous Improvement Consultant at bedside reports she last saw the patient on Wednesday evening (>48 hours ago). States that she went to see the patient today and the patient seemed to be dragging her right foot behind her, which is abnormal for her. She reports that the patient has a history of bipolar disorder and "had a mental breakdown earlier today." Patient denies any suicidal or homicidal ideation. She has no access to her medications due to take any extra. She reportedly was very shaky this morning with her right leg weakness. Patient states that she had some difficulties walking starting over 24 hours ago. Denies any chest pain or shortness of breath. Denies any nausea or vomiting. Denies any abdominal pain. Patient reports that all weekend she has been very weak and dizzy when she tries to get up. States that she spent most of the weekend in bed. She is normally ambulatory with a cane at baseline. ROS: as above PHYSICAL EXAM: Constitutional: Patient appears in no acute distress. HENT: Head: Normocephalic and atraumatic. Eyes: EOMI, PERRL Mouth/Throat: Mucous membranes moist. Neck: Trachea midline. Neck supple. Cardiovascular: RRR, No murmurs, rubs or gallops. Intact distal pulses. Pulmonary/Chest: No respiratory distress. Breath sounds clear and equal bilaterally. No wheezes or rales. Abdominal: Abdomen soft, no tenderness, rebound or guarding. Musculoskeletal: No edema, tenderness or deformity noted. Skin: Warm and dry. No rash, erythema, pallor or cyanosis Psychiatric: Appropriate mood and affect for situation. Neurological: Alert and keenly responsive. Facies symmetric. Able to raise eyebrows, close eyes, smile, puff mouth, stick out tongue, move tongue left and right and raise palate symmetrically. Able to shrug shoulders. PERRLA. SILT to forehead below eye and at jawline. Can hear soft noise bilaterally. Strength 5/5 in bilateral upper and lower extremities. SILT throughout bilateral upper and lower extremities. MDM: - Vitals signs showed hypertension - History obtained via patient and patient's oracle solutions architect. History as above. - Chronic conditions affecting care: HLD; hypothyroidism; GERD; depression/anxiety; intellectual disability; schizophrenia; bipolar disorder - Differential diagnoses include, but are not limited to: UTI; pneumonia; viral syndrome; electrolyte abnormality; dysrhythmia; CVA; intracranial hemorrhage - Order placed for continuous cardiac monitoring. At this time, monitor showed rate of 91 bpm with normal sinus rhythm, per my interpretation. - External medical records reviewed. Discharge summary dated 10/27/2022 was reviewed. Patient was admitted at that time due to extrapyramidal symptoms - EKG interpreted by myself showed normal sinus rhythm. Rate 82 bpm. QT 368. No acute ischemic changes. Noted have some PVCs. - Laboratory workup interpreted by myself showed normal WBC; normal PT/INR; stable electrolytes; normal troponin; normal TSH; negative salicylate/acetaminophen levels - UA negative for infection - Viral respiratory panel negative - UDS positive for MDMA, likely from patient's psychiatric medications - CXR negative for pneumonia, per my interpretation - CT head wo contrast negative for acute pathology - Patient attempted to get up with nursing staff and required significant nursing assistance and was very unsteady on her feet with ambulation with her cane. Patient lives home alone and caretakers only check on her a few hours a day. Concern about patient's safety and going home given her weakness. Will hospital service - Discussion was had with case packer and sealer about patient's case and need for admission - Hospitalist, Dr. Craven, consulted for admission - [facility] for further evaluation and management. 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), late onset (Chronic) Prediabetes (Chronic) Allergic rhinitis (Chronic) Hirsutism (Chronic) Depression with anxiety (Chronic) Intellectual disability (Chronic) Vitamin D deficiency (Chronic) Hypothyroidism (Chronic) Obesity (Chronic) Acanthosis nigricans (Chronic) Dyslipidemia (Chronic) Medical History Lower extremity pain, left Fall Dehydration Acute kidney injury Dizziness and giddiness Hypokalemia due to excessive gastrointestinal loss of potassium Post-ERCP acute pancreatitis Pre-diabetes Allergic rhinitis Intellectual disability Diverticular disease GERD (gastroesophageal reflux disease) Bipolar disorder Depression Anxiety Hypothyroidism Russ's thyroiditis Hypertension Poor historian Asthma Anemia GI bleed Surgical History History of tooth extraction H/O colonoscopy H/O endoscopy Hx laparoscopic cholecystectomy Family History Father Coronary heart disease Social History Smoking Status: Never smoker Second Hand Exposure: No; Do You Dip or Chew Tobacco: No; Hx Alcohol Use: No Hx Substance Use: No Preferred Language: Citizen Of [place] Communication Ability: Effective Pharmacy Clerk Required: No Beliefs That Will Affect Care: None Current Living Situation: Alone Current Living Situation Comment: appartment Feels Safe at Home: Yes Assistive Devices: Cane Allergies Allergies Allergy/AdvReac Type Severity Reaction Status Date / Time No Known Drug Allergies Allergy Unknown Verified 09/22/23 17:27 Home Meds Home Medications Medication Instructions Recorded Confirmed bupropion HCl 300 mg 24 hr tablet, 300 mg PO QAM 01/19/19 09/22/23 extended release (Wellbutrin XL) olanzapine 5 mg tablet (Zyprexa) 5 mg PO HS 01/19/19 09/22/23 acetaminophen 325 mg tablet 325 - 650 mg PO Q6 PRN Pain 10/19/22 09/22/23 benztropine 0.5 mg tablet 0.5 mg PO BID 10/19/22 09/22/23 fluoxetine 10 mg capsule 10 mg PO HS 10/19/22 09/22/23 loratadine 10 mg tablet 10 mg PO QAM 10/19/22 09/22/23 prazosin 1 mg capsule 1 mg PO HS 10/19/22 09/22/23 fluticasone propionate 50 2 spray intranasal QA 08/11/23 09/22/23 mcg/actuation nasal spray,suspension (Allergy Relief (fluticasone)) gabapentin 100 mg capsule 100 mg PO HS 08/11/23 09/22/23 mecobalamin (vitamin B12) 5,000 5,000 mcg PO QAM 05/15/24 06/26/24 mcg chewable tablet riboflavin (vitamin B2) 400 mg 400 mg PO QAM 08/11/23 09/22/23 tablet calcium 600 mg (as 1 cap PO BID 09/22/23 09/22/23 carbonate)-vitamin D3 12.5 mcg (500 unit) capsule (Calcium with Vit D3) docusate sodium 100 mg capsule 100 mg PO HS 09/22/23 09/22/23 (Colace) levothyroxine 50 mcg tablet 50 mcg PO QAM 09/22/23 09/22/23 magnesium oxide 400 mg PO QAM 09/22/23 09/22/23 pantoprazole 40 mg tablet,delayed 40 mg PO QAM 09/22/23 09/22/23 release Previous Rx's Medication Instructions Recorded metformin 500 mg tablet,extended 500 mg PO BID #360 tabs 08/11/23 release 24 hr meclizine 25 mg chewable tablet 25 mg PO TID PRN dizziness #20 tabs 09/22/23 spironolactone 50 mg tablet 50 mg PO BID #180 tabs 10/28/23 (Aldactone) Results & Data (ED) Vital Signs Vital Signs - 24 hr 01/24/24 10:18 01/24/24 10:21 01/24/24 10:30 Temperature 36.5 C Temperature Source Oral Pulse Rate 98 H 78 Pulse Rate [Left Finger] 78 Pulse Rhythm Regular Pulse Rhythm [Left Finger] Regular Pulse Strength [Left Finger] Normal Respiratory Rate 20 18 20 Respiratory Effort / Characteristics Non-Labored Spontaneous Respiratory Depth Normal Respiratory Pattern Regular Blood Pressure 112/59 L Blood Pressure [Left Arm] 144/85 H Blood Pressure Mean 76 Blood Pressure Mean [Left Arm] 104 Blood Pressure Position Sitting Blood Pressure Position [Left Arm] Lying Pulse Oximetry 96 96 96 Oxygen Delivery Method Room Air Room Air Room Air Sepsis Recent Fever Within 48 Hours No Sepsis New/Unexplained Change in Mental Status No Sepsis Action Taken by Nursing No Action Required 01/24/24 13:22 Temperature Temperature Source Pulse Rate Pulse Rate [Left Finger] 91 H Pulse Rhythm Pulse Rhythm [Left Finger] Regular Pulse Strength [Left Finger] Normal Respiratory Rate 21 Respiratory Effort / Characteristics Non-Labored Spontaneous Respiratory Depth Normal Respiratory Pattern Regular Blood Pressure Blood Pressure [Left Arm] 145/95 H Blood Pressure Mean Blood Pressure Mean [Left Arm] 111 Blood Pressure Position Blood Pressure Position [Left Arm] Lying Pulse Oximetry 94 Oxygen Delivery Method Room Air Sepsis Recent Fever Within 48 Hours Sepsis New/Unexplained Change in Mental Status Sepsis Action Taken by Nursing Laboratory Data 01/24/24 10:35 01/24/24 10:35 Lab Results 01/24/24 01/24/24 Range/Units 10:35 Unknown WBC 6.05 (4.8-10.8) K/ul RBC 4.60 (4.20-5.40) M/uL Hgb 13.5 (12.0-16.0) g/dl Hct 41.2 (37.0-47.0) % MCV 89.6 (80.0-100.0) fL MCH 29.3 (25.0-34.0) pg MCHC 32.8 (32.0-36.0) g/dL RDW Std Deviation 41.9 (36.4-46.3) fL RDW Coeff of Sukumar 12.9 (11.5-14.5) % Plt Count 250 (130-400) K/uL MPV 9.8 (9.4-12.4) fL Immature Gran % (Auto) 0.2 % Neut % (Auto) 63.5 % Lymph % (Auto) 27.1 % [place] % (Auto) 6.4 % Eos % (Auto) 1.5 % Baso % (Auto) 1.3 % Neut # (Auto) 3.84 (1.40-6.50) K/uL Lymph # (Auto) 1.64 (1.20-3.40) K/uL [place] # (Auto) 0.39 (0.11-0.59) K/uL Eos # (Auto) 0.09 (0.00-0.50) K/uL Baso # (Auto) 0.08 (0.00-0.20) K/uL Immature Gran # (Auto) 0.01 (0.01-0.20) K/uL PT 10.9 (9.0-12.0) Seconds INR 1.0 (0.9-1.1) Sodium 141 (136-145) mmol/L Potassium 3.7 (3.5-5.1) mmol/L Chloride 105 (98-107) mmol/L Carbon Dioxide 28 (21-32) mmol/L Anion Gap 8 (3-11) BUN 11 (6-23) mg/dl Creatinine 0.93 (0.6-1.2) mg/dl Est Cr Clr Drug Dosing 62.0 ml/min eGFR 70.80 BUN/Creatinine Ratio 11.8 (10-20) Glucose 102 H (70-99(Fasting)) mg/dl Lactate 0.9 (0.4-2.0) mmol/L Calcium 10.3 (8.6-10.3) mg/dl Magnesium 1.8 (1.7-2.4) mg/dl Total Bilirubin 0.5 (0.2-1.0) mg/dl AST 17 (13-39) U/L ALT 17 (7-52) U/L Alkaline Phosphatase 90 (34-104) U/L Troponin I High Sens 2.4 (0-14) pg/ml Total Protein 7.4 (6.0-8.3) gm/dl Albumin 4.7 (3.4-5.0) gm/dl Globulin 2.7 (2.5-4.0) gm/dl Albumin/Globulin Ratio 1.7 (0.9-2) TSH 0.806 (0.300-4.500) uIu/ml Urine Color Dark Yellow Urine Appearance Clear (Clear) Urine pH 5.5 (4.5-7.5) Ur Specific [place] 1.028 (1.000-1.030) Urine Protein Negative (Negative) Urine Glucose (UA) Negative (Negative) Urine Ketones 1+ H (Negative) Urine Blood Negative (Negative) Urine Nitrite Negative (Negative) Urine Bilirubin Negative (Negative) Urine Urobilinogen Negative (Negative) Ur Leukocyte Esterase Negative (Negative) Salicylates < 3.0 L (3.0-30) mg/dl Urine Opiates Screen Neg (Neg) Ur Methadone, Qual Neg (Neg) Urine Fentanyl Screen Neg (Neg) Acetaminophen < 3 L (10-30) ug/ml Urine Barbiturates Neg (Neg) Ur Phencyclidine (PCP) Neg (Neg) U Amphetamin/Meth Scrn Neg (Neg) MDMA (Ecstasy) Screen Pos H (Neg) U Benzodiazepines Scrn Neg (Neg) Ur Cocaine Metabolite Neg (Neg) U Marijuana (THC) Screen Neg (Neg) Adenovirus (PCR) Not Detected (NotDetected) B. pertussis DNA (PCR) Not Detected (NotDetected) B.parapertussis DNA PCR Not Detected (NotDetected) C. pneumoniae DNA (PCR) Not Detected (NotDetected) Coronavirus OC43 (PCR) Not Detected (NotDetected) Coronavirus HKU1 (PCR) Not Detected (NotDetected) Coronavirus 229E (PCR) Not Detected (NotDetected) SARS-CoV-2 (PCR) Not Detected (NotDetected) Coronavirus NL63 (PCR) Not Detected (NotDetected) Human Metapneumovir PCR Not Detected (NotDetected) Influenza Type A (PCR) Not Detected (NotDetected) Influenza Type B (PCR) Not Detected (NotDetected) M. pneumoniae (PCR) Not Detected (NotDetected) Parainfluenza 1 (PCR) Not Detected (NotDetected) Parainfluenza 2 (PCR) Not Detected (NotDetected) Parainfluenza 3 (PCR) Not Detected (NotDetected) Parainfluenza 4 (PCR) Not Detected (NotDetected) RSV (PCR) Not Detected (NotDetected) Entero/Rhino (PCR) Not Detected (NotDetected) Imaging Data Radiologist's Impression: Chest X-Ray 01/24/24 10:30 XR chest 1V portable CLINICAL HISTORY: weakness COMPARISON STUDY: Chest CT February 04, 2011. Chest radiograph September 22, 2023. FINDINGS: Lung volumes are normal. Lungs are clear. There is no pneumothorax or pleural effusion. Cardiac size is normal. Mediastinal contours are normal. There is no evidence for pulmonary edema. IMPRESSION: No acute cardiopulmonary findings. ACT 112: Negative or not required by law. Electronically signed by: Chalino Camara M.D. 01/24/2024 11:[address] 01/24/24 10:30 CT head/brain wo con CLINICAL HISTORY: confusion Technique: Contiguous axial CT images of the head were acquired from the base of the skull to the vertex without intravenous contrast administration. Images were viewed in brain, subdural and bone windows. Automated dose lowering techniques and/or adjustment according to patient size were utilized for this exam. Comparison: Comparison is made to CT chest 09/22/2023 Findings: The ventricles, basal cisterns, and cerebral sulci are normal. There is no acute intracranial hemorrhage or evidence of acute territorial infarction. Neither mass effect, shift of the midline structures, nor abnormal extra-axial fluid collections are shown. Imaged portions of the paranasal sinuses and mastoid air cells are clear. The orbits appear normal. There are no acute fractures of the calvaria or scalp swelling. Impression: No acute intracranial hemorrhage, no evidence of acute territorial infarction or other acute intracranial disease process. ACT 112: Negative or not required by law. Electronically signed by: Gallo Murillo M.D. 01/24/2024 11:01 AM Discharge Plan Visit Data Chief Complaint: Illness Stated Complaint: MENTAL HEALTH BREAK, ALSO TROUBLE WALKING ED Provider: Sho Calderon Discharge Problem: Generalized weakness, Ambulatory dysfunction Forms Stand Alone Forms: My [facility] Prescriptions Prescriptions: No Action metformin 500 mg tablet extended release 24 hr 500 mg PO BID Qty: 360 3RF spironolactone [Aldactone] 50 mg tablet 50 mg PO BID Qty: 180 1RF olanzapine [Zyprexa] 5 mg tablet 5 mg PO HS bupropion HCl [Wellbutrin XL] 300 mg tablet extended release 24 hr 300 mg PO QAM gabapentin 100 mg capsule 100 mg PO HS fluticasone propionate [Allergy Relief (fluticasone)] 50 mcg/actuation spray,suspension 2 spray intranasal QAM Rx Instructions: administer into each nostril riboflavin (vitamin B2) 400 mg tablet 400 mg PO QAM mecobalamin (vitamin B12) 5,000 mcg tablet,chewable 5,000 mcg PO QAM benztropine 0.5 mg tablet 0.5 mg PO BID prazosin 1 mg capsule 1 mg PO HS fluoxetine 10 mg capsule 10 mg PO HS acetaminophen 325 mg Tablet 325 - 650 mg PO Q6 PRN (Reason: Pain) loratadine 10 mg Tablet 10 mg PO QAM docusate sodium [Colace] 100 mg Capsule 100 mg PO HS calcium carbonate-vitamin D3 [Calcium 600 with Vitamin D3] 600 mg-12.5 mcg (500 unit) Capsule 1 cap PO BID magnesium oxide 400 mg magnesium Capsule 400 mg PO QAM levothyroxine 50 mcg tablet 50 mcg PO QAM pantoprazole 40 mg tablet,delayed release (DR/EC) 40 mg PO QAM meclizine 25 mg tablet,chewable 25 mg PO TID PRN (Reason: dizziness) Qty: 20 0RF Referrals Referrals: Becky Olson MD [Primary Care Provider] -
[2024-01-24 11:01] LABS: Basophils # (auto) 0.08 K/uL (0.00-0.20); Basophils % (auto) 1.3 %; Eosinophils # (auto) 0.09 K/uL (0.00-0.50); Eosinophils % (auto) 1.5 %; Hematocrit (blood only) 41.2 % (37.0-47.0); Hemoglobin 13.5 g/dl (12.0-16.0); Immature Granulocytes # (auto) 0.01 K/uL (0.01-0.20); Immature Granulocytes % (auto) 0.2 %; Lymphocytes # (auto) 1.64 K/uL (1.20-3.40); Lymphocytes % (auto) 27.1 %; Mean Corpuscular Hemoglobin 29.3 pg (25.0-34.0); Mean Corpuscular Hgb Conc 32.8 g/dL (32.0-36.0); Mean Corpuscular Volume 89.6 fL (80.0-100.0); Mean Platelet Volume 9.8 fL (9.4-12.4); Monocytes # (auto) 0.39 K/uL (0.11-0.59); Monocytes % (auto) 6.4 %; Neutrophils # (auto) 3.84 K/uL (1.40-6.50); Neutrophils % (auto) 63.5 %; Platelet Count 250 K/uL (130-400); RDW Coefficient of Variation 12.9 % (11.5-14.5); RDW Standard Deviation 41.9 fL (36.4-46.3); White Blood Count 6.05 K/ul (4.8-10.8)
--- NOTE | 2024-01-24 11:02 | CT Scan Report ---
CT head/brain wo con CLINICAL HISTORY: confusion Technique: Contiguous axial CT images of the head were acquired from the base of the skull to the alexys marcin without intravenous contrast administration. Images were viewed in brain, subdural and bone [facility]. Automated dose lowering techniques and/or adjustment according to patient size were utilized for this exam. Comparison: Comparison is made to CT chest 09/22/2023 Findings: The ventricles, basal cisterns, and cerebral sulci are normal. There is no acute intracranial hemorrh age or evidence of acute territorial infarction. Neither mass effect, shift of the midline structures , nor abnormal extra-axial fluid collections are shown. Imaged portions of the paranasal sinuses and mastoid air cells are clear. The orbits appear normal. There are no acute fractures of the calvaria or scalp swelling. Impression: No acute intracranial hemorrhage, no evidence of acute territorial infarction or other acute intracra nial disease process. ACT 112: Negative or not required by law. Electronically signed by: Gallo Murillo M.D. 01/24/2024 11:01 AM
[2024-01-24 11:08] LABS: Acetaminophen < 3 ug/ml (10-30); Salicylate < 3.0 mg/dl (3.0-30)
[2024-01-24 11:14] LABS: Albumin Globulin Ratio 1.7 (0.9-2); Albumin Level 4.7 gm/dl (3.4-5.0); BUN Creatinine Ratio 11.8 (10-20); Bilirubin,Total 0.5 mg/dl (0.2-1.0); Calcium 10.3 mg/dl (8.6-10.3); Globulin 2.7 gm/dl (2.5-4.0); Magnesium 1.8 mg/dl (1.7-2.4); Potassium 3.7 mmol/L (3.5-5.1); Total Protein 7.4 gm/dl (6.0-8.3)
[2024-01-24 11:20] LABS: Troponin I High Sensitivity 2.4 pg/ml (0-14)
[2024-01-24 11:28] LABS: Prothrombin Time 10.9 Seconds (9.0-12.0); Thyroid Stimulating Hormone 0.806 uIu/ml (0.300-4.500)
[2024-01-24 11:49] LABS: Adenovirus PCR Not Detected (NotDetected); Bordetella parapertussis PCR Not Detected (NotDetected); Bordetella pertussis PCR Not Detected (NotDetected); Chlamydia pneumoniae PCR Not Detected (NotDetected); Coronavirus 229E PCR Not Detected (NotDetected); Coronavirus CoV-2 (COVID19)PCR Not Detected (NotDetected); Coronavirus HKU1 PCR Not Detected (NotDetected); Coronavirus NL63 PCR Not Detected (NotDetected); Coronavirus OC43PCR Not Detected (NotDetected); Human Metapneumovirus PCR Not Detected (NotDetected); Influenza A PCR Not Detected (NotDetected); Influenza B PCR Not Detected (NotDetected); Mycoplasma pneumoniae PCR Not Detected (NotDetected); Parainfluenza Virus 1 PCR Not Detected (NotDetected); Parainfluenza Virus 2 PCR Not Detected (NotDetected); Parainfluenza Virus 3 PCR Not Detected (NotDetected); Parainfluenza Virus 4 PCR Not Detected (NotDetected); Respiratory Syncytial VirusPCR Not Detected (NotDetected); Rhinovirus/Enterovirus PCR Not Detected (NotDetected)
--- NOTE | 2024-01-24 11:50 | XRay Report ---
XR chest 1V portable CLINICAL HISTORY: weakness COMPARISON STUDY: Chest CT February 04, 2011. Chest radiograph September 22, 2023. FINDINGS: Lung volumes are normal. Lungs are clear. There is no pneumothorax or pleural effusion. Car diac size is normal. Mediastinal contours are normal. There is no evidence for pulmonary edema. IMPRESSION: No acute cardiopulmonary findings. ACT 112: Negative or not required by law. Electronically signed by: Chalino Camara M.D. 01/24/2024 11:49 AM
--- NOTE | 2024-01-24 12:54 | Electrocardiogram Report ---
Test Reason : Blood Pressure : */* mmHG Vent. Rate : 82 BPM Atrial Rate : 82 BPM P-R Int : 154 ms QRS Dur : 90 ms QT Int : 368 ms P-R-T Axes : 17 -13 6 degrees QTcB Int : 429 ms Sinus rhythm with occasional Premature ventricular complexes Moderate voltage criteria for LVH, may be normal variant Abnormal ECG When compared with ECG of 22-Sep-2023 15:10, Premature ventricular complexes are now Present Confirmed by Tunde Miles ([id number] on 01/24/2024 12:54:01 PM Referred By: Confirmed By: Tunde Miles
[2024-01-24 13:36] LABS: Appearance Urine Clear (Clear); Bilirubin Urine Negative (Negative); Blood Urine Negative (Negative); Color Urine Dark Yellow; Glucose Urine UA Negative (Negative); Ketones Urine 1+ (Negative); Leukocyte Esterase Urine Negative (Negative); Nitrite Urine Negative (Negative); Protein Urine Negative (Negative); Specific Gravity Urine 1.028 (1.000-1.030); Urobilinogen Urine Negative (Negative); pH Urine 5.5 (4.5-7.5)
[2024-01-24 14:08] LABS: Amphetamines+Metham, Urine Neg (Neg); Barbiturates, Urine Neg (Neg); Benzodiazepine, Urine Neg (Neg); Cocaine, Urine Neg (Neg); Fentanyl, Urine Neg (Neg); MDMA (Ecstacy), Urine Pos (Neg); Marijuana, Urine Neg (Neg); Methadone, Urine Neg (Neg); Opiate, Urine Neg (Neg); Phencyclidine, Urine Neg (Neg)
--- OUTSIDE RECORDS SUMMARY | 2024-01-24 14:50 | External Medical Summary | Summary of Care ---
Author Name Unknown Organization [facility] Address [address] [place] [address] Phone [phone] Care Team Providers Care Hospice Nurse Name Role Phone Becky Olson MD Primary Care Provider [phone] Reason for Referral * Evaluate & Treat - Unlimited Visits (Within 30 days (routine)) - Authorized Specialty Diagnoses / Procedures Referred By Contac t Referred To Contact Physical Therapy / Physical Medicine And Rehab Diagnoses Dizziness Becky Olson MD [address] [facility] [place] [address] Referral ID Status Reason Start Date Expiration Date Visits Requested Visits Authorized [id number] Authorized Specialty Services Required [id number] [phone] Question Answer Referral Priority Within 30 days (routine) Where should this appointment be scheduled? External - [place] Comments Vertigo Reason for Visit * Reason Onset Date Comments Order Request 12/29/2023 Encounter Details Date Type Department Care Team (Late st Contact Info) Description 12/29/2023 Telephone [facility] [address] [place] [address] Becky Olson MD [address] [place] [address] Order Request Allergies Active Allergy Reactions Criticality Noted Date Comments No Known Drug Allergy 04/09/2008 documented as of this encounter (statuses as of 01/10/2024) Medications Medication Sig Dispensed Refills Start Date End Date Status buPROPion XL (WELLBUTRIN XL) 300 MG TB24 Take 1 Tablet by mouth in the morning. In the morning.. 0 12/03/2015 Active OLANZapine 5 MG Oral Tablet Take 0.5 Tablets by mouth at bedtime. Tapering off 30 Tab 5 10/04/2017 Active Cholecalciferol (VITAMIN D-3) 1000 units Capsule Take 1 Capsule by mouth in the morning. 10/04/2017 Active spironolactone (ALDACTONE) 50 MG TabletIndications:Co ngenital adrenal hyperplasia (HCC) Take 1 Tablet by mouth in the morning and 1 Tablet before bedtime. 180 Tab 3 09/14/2019 Active Prazosin HCl 1 MG Oral Capsule (Minipress) Take 1 Capsule by mouth at bedtime. 09/17/2020 Active Ventolin HFA 108 (90 Base) MCG/ACT Inhalation Aerosol Solution inhale 2 puffs by mouth every 4 hours if needed for wheezing 54 g 3 09/19/2020 Active FLUoxetine HCl 10 MG Oral Capsule (PROzac) take 1 tablet by mouth nightly 07/13/2021 Active Benztropine Mesylate 0.5 MG Oral Tablet (Cogentin) 10/12/2022 Active Pantoprazole Sodium 40 MG Oral Tablet Delayed Release (Protonix)Indication s:Gastroesophageal reflux disease without esophagitis Take 1 Tablet by mouth in the morning. 90 Tablet 1 12/31/2022 Active Vitamin B-12 5000 MCG Oral Tablet DisintegratingIndica tions:Anemia due to vitamin B12 deficiency, unspecified B12 deficiency type Take 1 Tablet by mouth in the morning. 90 Tablet 3 06/07/2023 Active Loratadine 10 MG Oral CapsuleIndications:A cute non-recurrent frontal sinusitis Take 1 Capsule by mouth in the morning. 90 Capsule 3 06/17/2023 Active Meclizine HCl 25 MG Oral Tablet (Antivert)Indication s:Benign positional vertigo, unspecified laterality Take 1 Tablet by mouth 3 times a day as needed for Dizziness. Er 09/22/23 09/29/2023 Active Riboflavin 400 MG Oral TabletIndications:Fr ontal headache TAKE 1 TAB BY MOUTH IN THE MORNING. -OTC-. 90 Tablet 1 10/28/2023 Active Caplyta 10.5 MG Oral Capsule TAKE 1 CAPSULE BY MOUTH EVERYDAY AT BEDTIME 11/04/2023 Active Gabapentin 100 MG Oral Capsule (Neurontin)Indicatio ns:Frontal headache TAKE 1 CAPSULE BY MOUTH EVERYDAY AT BEDTIME 30 Capsule 1 11/15/2023 Active Magnesium Oxide 400 MG Oral TabletIndications:Fr ontal headache TAKE 1 TABLET BY MOUTH EVERY DAY IN THE MORNING 30 Tablet 11 12/16/2023 Active documented as of this encounter (statuses as of 01/10/2024) Active Problems Problem Noted Date Diagnosed Date Pap smear of cervix declined 01/20/2021 NAFLD (nonalcoholic fatty liver disease) 020 Hyperlipidemia LDL goal <100 01/02/2020 Prediabetes 04/11/2018 Overview: Per Prediabetes protocol #1 Acquired hypothyroidism 03/31/2018 Allergic rhinitis 10/12/2013 Congenital adrenal hyperplasia 08/09/2012 Menopause 07/04/2012 Vitamin D deficiency 11/24/2011 CAH 21-OH (congenital adrenal hyperplasia), late onset 03/09/2011 Other schizophrenia 12/30/2010 Bipolar affective disorder in remission 12/31/19 11 Gastroesophageal reflux disease without esophagi tis 04/22/2010 BENIGN NEOPLASM ADRENAL- LEFT 04/09/2008 Overview: 7 mm left adrenal mass. Catecholamines and urine cortisol are normal Hirsutism 04/09/2008 Overview: With elevated Testosterone level Hypopotassemia 06/07/2006 Intellectual disability 01/27/2006 Depression with anxiety 07/09/2005 documented as of this encounter (statuses as of 01/10/2024) Resolved Problems Problem Noted Date Diagnosed Date Resolved Date Body mass index (BMI) of 40. 0 to 44.9 in adult 04/06/2017 03/31/2018 Overview: Per Obesity protocol #1 Major depressive disorder 02/03/2011 Overview: ICD-10 update of inactive term Electrolyte and fluid disorder 10/11/2010 07/19/2012 Abnormal levels of other serum enzymes 10/10/2010 11/06/2019 Overview: ICD-10 update of inactive term HTN, goal below 140/90 02/14/200906/25 Overview: Modified per HTN protocol #16. 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. HTN, goal to be determined 1 04/20/2008 Overview: Modified per HTN protocol #16. Reflux esophagitis 1 documented as of this encounter (statuses as of 01/10/2024) Immunizations Name Administration Dates Next Due COVID-19 mRNA, LNP-s, No Pre serve, 2-Dose Series (import2) 03/13/2021,07/11/2020,06/20/2020 Hepatitis B, 20+ yrs 01/08/2022,09/08/2021,03/13 PPD 10/03/2018, 7,06/25/2014,05/30,05/07/2010,05/14/2008,05/07/2006 Pneumococcal Polysaccharide PPV23 (Pneumovax) 07/11/2018 Seasonal Influenza Vac., MDV , IM, 0.5 mL (Fluzone) 11/13/2014,01/08/2014,01/26/2013,01/11,12/29/2010,12/16/2009,05/20/2009 ,03/05/2008,01/27/2006 Seasonal Influenza, PF, 6 M & above, IM , (FluLaval or Fluzone) 05/14/2023,05/14/2022,01/20/2021,01/01,01/27/2018,12/23/2016 Seasonal Influenza, Quadriva lent, No Preserve, IM 12/23/2018,11/22/2017,12/23/2015 Seasonal Influenza, Quadriva lent, No Preserve, Mdck 01/05/2020 Seasonal Influenza, Trivalen t, (IIV3), PF, (Fluzone) 03/12/2009 TDAP (age 10 and older)(Boostrix) 10/10/2018 TDAP, Age 7 and older, IM (Adacel) 07/20/2007 documented as of this encounter Social History Tobacco Use Types Packs/Day Years Used Date Smoking Tobacco: Never Smokeless Tobacco: Never Alcohol Use Standard Drinks/Week Comments No 0 (1 standard drink = 0.6 oz pur e alcohol) PHQ-2 Answer Date Recorded PHQ Adult Total Score 0 04/10/2022 Hunger Vital Sign Answer Date Recorded Within the past 12 months, y ou worried that your food would run out before you got the money to buy more. Never true 04/10/19 23 Within the past 12 months, t he food you bought just didn't last and you didn't have money to get more. Never true 04/10/2022 Sex and Gender Information Value Date Recorded Sex Assigned at Female 06/22/2018 5:59 PM EDT Gender Identity Female 06/22/2018 5:59 PM EDT Sexual Orientation Straight 06/22/2018 5: 59 PM EDT Job Start Date Occupation Industry Not on file Not on file Not on file documented as of this encounter Miscellaneous Notes * Telephone Encounter - Janna Eason RN - 01/10/2024 4:19 PM EDT Placed new referral and faxed to number provided. Provider to address: Reason for Call: No chief complaint on file. Contact: Telephone Call Contact Type: Referral(s) Placed Provider In-Basket: No Outcome: referral placed Face to face time spent with Patient (minutes): 0 Total Time including non face to face (minutes): 10 * Telephone Encounter - Rhonda Dickinson OSA - 12/29/2023 8:40 AM EDT [place] needs a new PT referral starting with 12/28/2023 date, pt was seen last evening. Please fax to: [phone]. Pt has Medicare so current referral cannot be used. documented in this encounter Plan of Treatment Upcoming Encounters Date Type Department Care Team (Late st Contact Info) Description 03/07/2024 9:00 AM EST Telemedicine Neurology [address] [place] [address] Cam Mcpherson, DO [address] [place] [address] Cart, Telemed [facility] [address] [facility] [place] [address] 05/18/2024 10:00 AM EST Office Visit Neurology [facility] [address] [facility] [place] [address] Yuridia Kendall MD [address] [facility] [place] [address] 05/25/2024 2:00 PM EST Office Visit General Internal Medicine [facility] [address] [facility] [place] [address] Becky Olson MD [address] [facility] [place] [address] Scheduled Procedures Name Priority Associated Diagnoses Date/Ti me COLONOSCOPY FLEXIBLE PROXIMAL DIAGNOSTIC Recall History of colon polyps Scheduled Referrals Name Type Priority Associated Diagnoses Orde r Schedule PHYSICAL THERAPY REFERRAL OP Referral Within 30 days (routine) Dizziness Ordered: 01/10/2024 Health Maintenance Due Date Last Done Comments HIV Screening 12/08/1979 HPV/Co-Test 1994 Cologuard 2009 Fecal Occult Blood Test 2009 Sigmoidoscopy 2009 Zoster Vaccines (1 of 2) 2014 Pap Smear 07/16/2017 07/16/2014, 04/29, 05/12/2011, Additional history exists COVID-19 Vaccine ( season) 2023 03/13/2021, 07/11/2020, 06/20/2020 Influenza Vaccine (FLU shot) (#1) 2023 05/14/2023, 05/14/2022, 01/20/2021, Additional history exists Cervical Cancer Screening 01/21/2024 Po stponed from 07/16/2017 (Contraindicated Today) Depression Monitoring 09/28/2024 09/29/2023 B-12 11/21/2024 11/22/2023, 04/29, 12/02/2022, Additional history exists HbA1c 11/21/2024 11/22/2023, 05/0 03/2023, 12/02/2022, Additional history exists Mammogram 2024 12/08/2023, 09/0 08/2022, 12/02/2022, Additional history exists Colonoscopy 04/15/2025 04/15/2022, 03/29, 06/24/2018, Additional history exists Colorectal Cancer Screening 04/15/2025 DTap/Tdap Vaccines (3 - Td or Tdap) 10/10/2028 10/10/2018, 07/20/2007 Lipid Panel 11/21/2028 11/22/2023, 09/26, 05/15/2022, Additional history exists Pneumococcal Vaccine: Pediatrics (0 to 5 Years) and At-Risk Patients (6 to 64 Years) Aged Out 07/11/2018 No longer eligible based on patient's age to complete this topic Hepatitis B Vaccine Completed 01/08/2022, 09/08/2021, 03/13/2021 HPV (Gardasil) Vaccine Aged Out No lo nger eligible based on patient's age to complete this topic MENINGOCOCCAL (MENACTRA/MENVEO) Aged Out No longer eligible based on patient's age to complete this topic documented as of this encounter Medical Devices Not on filedocumented as of this encounter Visit Diagnoses Diagnosis Dizziness- Primary Dizziness and giddiness documented in this encounter Care Teams Hospice Nurse Relationship Specialty Start Date End Date Becky Olson MD [address] [place] [address] PCP - General Internal Medicine 01/15/21 documented as of this encounter
--- OUTSIDE RECORDS SUMMARY | 2024-01-24 14:50 | External Medical Summary | Summary of Care ---
Author Name Unknown Organization [facility] Address [address] [place] [address] Phone [phone] Care Team Providers Care Transfer Station Attendant Name Role Phone Becky Olson MD Primary Care Provider [phone] Reason for Visit * Reason Comments Follow Up * - Authorized Specialty Diagnoses / Procedures Referred By Fátima arenas Referred To Contact Referral ID Status Reason Start Date Expiration Date V isits Requested Visits Authorized [id number] Authorized 10/26/2024 [id number] Encounter Details Date Type Department Care Team (Late st Contact Info) Description 12/15/2023 10:00 AM EDT Therapy [facility] [address] [place] [address] Polo Martínez, PhD [address] [place] [address] Moderate intellectual disability*; Bipolar affective disorder in remission (HCC) Allergies Active Allergy Reactions Criticality Noted Date Comments No Known Drug Allergy 04/09/2008 documented as of this encounter (statuses as of 12/17/2023) Medications Medication Sig Dispensed Refills Start Date [...] morning. 10/04/2017 Active spironolactone (ALDACTONE) 50 MG TabletIndications :Congenital adrenal hyperplasia (HCC) Take 1 Tablet by [...] Sodium 40 MG Oral Tablet Delayed Release (Protonix)Indicat ions:Gastroesopha geal reflux disease without esophagitis Take 1 Tablet by mouth in the morning. 90 Tablet 1 12/31/2022 Active Vitamin B-12 5000 MCG Oral Tablet DisintegratingInd ications:Anemia due to vitamin B12 deficiency, unspecified B12 deficiency type Take 1 Tablet by mouth in the morning. 90 Tablet 3 06/07/2023 Active Loratadine 10 MG Oral CapsuleIndication s:Acute non-recurrent frontal sinusitis Take 1 Capsule by mouth in the morning. 90 Capsule 3 06/17/2023 Active Meclizine HCl 25 MG Oral Tablet (Antivert)Indicat ions:Benign positional vertigo, unspecified laterality Take 1 Tablet by mouth 3 times a day as needed for Dizziness. Er 09/22/23 09/29/2023 Active Riboflavin 400 MG Oral TabletIndications :Frontal headache TAKE 1 TAB BY MOUTH IN THE MORNING. -OTC-. 90 Tablet 1 10/28/2023 Active Caplyta 10.5 MG Oral Capsule TAKE 1 CAPSULE BY MOUTH EVERYDAY AT BEDTIME 11/04/2023 Active Gabapentin 100 MG Oral Capsule (Neurontin)Indica tions:Frontal headache TAKE 1 CAPSULE BY MOUTH EVERYDAY AT BEDTIME 30 Capsule 1 11/15/2023 Active Magnesium Oxide 400 MG Oral TabletIndications :Frontal headache TAKE 1 TABLET BY MOUTH EVERY DAY IN THE MORNING 30 Tablet 2 08/26/2023 4 Discontinued documented as of this encounter (statuses as of 12/17/2023) Active Problems Problem Noted Date Diagnosed Date [...] as of this encounter (statuses as of 12/17/2023) Resolved Problems Problem Noted Date Diagnosed Date [...] 07/09/2005 1 04/05/2010 Overview: Dr ramires at [facility]. HTN, goal to be determined 1 04/20/2008 Overview: Modified per HTN protocol #16. Reflux esophagitis 1 documented as of this encounter (statuses as of 12/17/2023) Immunizations Name Administration Dates Next Due COVID-19 mRNA, LNP-s, No Pre serve, 2-Dose Series (Acucar [place]) 03/13/2021,07/11/2020,06/20/2020 Hepatitis B, 20+ yrs 01/08/2022,09/08/2021,03/13 PPD 10/03/2018, 7,06/25/2014,05/30,05/07/2010,05/14/2008,05/07/2006 Pneumococcal Polysaccharide PPV23 (Pneumovax) 07/11/2018 Seasonal Influenza, PF, 6 M & above, IM , (FluLaval or Fluzone) 05/14/2023,05/14/2022,01/20/2021,01/01,01/27/2018,12/23/2016 Seasonal Influenza, Quadriva lent, No Preserve, IM 12/23/2018,11/22/2017,12/23/2015 Seasonal Influenza, Quadriva lent, No Preserve, Mdck 01/05/2020 Seasonal Influenza, Trivalen t, (IIV3), PF, (Fluzone) 03/12/2009 Seasonal Influenza, Trivalen t, (IIV3), with Preserv, (Fluzone) 11/13/2014,01/08/2014,01/26/2013,01/11,12/29/2010,12/16/2009,05/20/2009 ,03/05/2008,01/27/2006 TDAP (age 10 and older)(Boostrix) 10/10/2018 TDAP, [...] on file documented as of this encounter Progress Notes * Polo Martínez, PhD - 12/17/2023 12:21 PM EDT NEUROPSYCHOLOGY FEEDBACK NOTE Ms. Yessy Myrick presented for a neuropsychology feedback appointment to review the results, impressions, and recommendations of an evaluation that was conducted on 11/17/2023. Patient's critical access hospital skeet operator and caregiver both participated in the appointment with permission. Patient and collaterals re ported that everything has been about the same since the initial evaluation. Results, impressions, and recommendations were reviewed. Patient and collaterals verbalized understanding and expressed appreciation. They are aware that I can be contacted with any additional questions. Patient was stableat the conclusion of the appointment. Summary and Conclusions: On formal neuropsychological testing, Ms. Myrick appeared to put forth good effort. Overall general intellectual functioning was in the exceptionally low range (95% confidence interval); verbal comprehension (verbal intellect) was exceptionally low, perceptual reasoning (nonverbal intellect) was exceptionally low, information processing speed was exceptionally low, and working memory was exceptionally low. Concerning achievement, word reading was exceptionally low. Fundamental language revealed broadly intact confrontation picture naming and exceptionally low semanticverbal fluency. Executive functioning, namely verbal and nonverbal reasoning, was exceptionally low. Verbal learning/memory was exceptionally low across encoding, delayed recall, and recognition cueing; nonverbal learning/memory was also exceptionally low. Impression is one of [id number]-[id number] intellectual disability. Results indicate exceptionally low functioning in each of the broad cognitive domains assessed. These findings would be consistent with the pt's known history of intellectual disability. Given the level of support needed in daily life (as indicated in the history above) and the cognitive test results, it seems that a [id number] level of intellectual disabilty is most appropriate. In this case, it is somewhat difficult to know if these current results represent any decline from baseline that could indicate a contribution froma secondary neurodegenerative process. Aspects of the clinical history could be suggestive of a neur odegenerative process (such as Alzheimer's disease), particularly the more recent declines in cognition and functional abilities. If the pt continues to deteriorate functionally over time, a neurodegenerative disorder should be moved higher up on the differential. While the pt does have numerous vascular risk factors that would put her at risk for chronic cerebrovascular disease, recent neuroimaging did not show substantial cerebrovascular disease. Defer to pt's psychiatric providers on presence/treatment of a secondary psychiatric disorder. Other contributors to cognitive impairment (e.g., substance use issues, sleep disturbance, chronic pain, abnormal labs, etc) do not appear to be readily relevant in this case. Diagnostic Impressions: [id number] Intellectual Disability Bipolar Disorder (by history) Recommendations: Referral to Behavioral Neurology. Continue following regularly with psychiatric providers. Continue with everyday life assistance from county agency and caregivers. Increase care/support as needed. Continue management of vascular risk factors to prevent progression of chronic cardiovascular disease and/or occurrence of CVA. Continue using compensatory strategies for enhancing memory functioning: External memory aids (i.e., checklists, daily planners/calendars, whiteboard, Post-it notes, alarms). Repeated exposure and breaking down large blocks of information into smaller, more manageable partsmay facilitate encoding of information. The patient is encouraged to engage in routine physical exercise, within her physical capabilities,as long as she is able to do so safely. This will help maintain both her physical status (i.e., regulating cholesterol and blood pressure) and her emotional/mental functioning. Be as socially engaged as possible for overall health and well-being. Practice good dietary habits. The following is one diet with scientific evidence for maintaining brain health: MIND-DASH Diet: GOOD: Green leafy vegetables (like spinach and salad greens): At least six servings a week Other vegetables: At least one a day Nuts: Five servings a week Berries: Two or more servings a week Beans: At least three servings a week Whole grains: Three or more servings a day Fish: Once a week Poultry (like chicken or turkey): Two times a week [place] oil: Use it as your main cooking oil AVOID: Red meat: Less than four services a week Butter and margarine: Less than a tablespoon daily Cheese: Less than one serving a week Pastries and sweets: Less than five servings a week Fried or fast food: Less than one serving a week Polo Martínez, Ph.D., ABN Neuropsychologist Service Time: 32 mins ([id number]) documented in this encounter Plan of Treatment Upcoming Encounters Date Type Department Care Team (Late st Contact Info) Description 03/07/2024 9:00 AM EST Telemedicine Neurology [address] [place] [address] Cam Mcpherson, DO [address] [facility] [place] [address] Cart, Telemed [facility] [address] [facility] [place] [address] 05/18/2024 10:00 AM EST Office Visit Neurology [facility] [place] [address] [facility] [address] Yuridia Kendall MD [address] [facility] [address] 05/25/2024 2:00 PM EST Office Visit General Internal Medicine [facility] [place] [address] [facility] [place] [address] Becky Olson MD [address] [facility] [place] [address] Scheduled Procedures Name Priority Associated Diagnoses Date/Ti me COLONOSCOPY FLEXIBLE PROXIMAL DIAGNOSTIC Recall History of colon polyps Health Maintenance Due Date Last Done Comments [...] 12/02/2022, Additional history exists Mammogram 2024 12/08/2023, 090 08/2022, 12/02/2022, Additional history exists Colonoscopy 04/15/2025 [...] as of this encounter Visit Diagnoses Diagnosis Moderate intellectual disability- Primary Moderate intellectual disabilities Bipolar affective disorder in remission (HCC) documented in this encounter Care Teams Transfer Station Attendant Relationship Specialty Start Date End Date Becky Olson MD [address] [place] [address] PCP - General Internal Medicine 01/15/21 documented as of this encounter
--- OUTSIDE RECORDS SUMMARY | 2024-01-24 14:50 | External Medical Summary | Summary of Care ---
Author Name Unknown Organization [facility] Address [address] [place] [address] Phone [phone] Care Team Providers Care Architectural Drafter Name Role Phone Becky Olsno MD Primary Care Provider [phone] Reason for Visit * Reason Onset Date Comments Referral 01/11/2024 Encounter Details Date Type Department Care Team (Late st Contact Info) Description 01/11/2024 Telephone General Internal Medicine [facility] [address] [facility] [place] [address] Becky Olson MD [address] [place] [address] Referral Allergies Active Allergy Reactions Criticality Noted Date Comments No Known Drug Allergy 04/09/2008 documented as of this encounter (statuses as of 01/11/2024) Medications Medication Sig Dispensed Refills Start Date [...] as of this encounter (statuses as of 01/11/2024) Active Problems Problem Noted Date Diagnosed Date [...] as of this encounter (statuses as of 01/11/2024) Resolved Problems Problem Noted Date Diagnosed Date [...] 07/09/2005 1 04/05/2010 Overview: Dr ramires at [facility]. HTN, goal to be determined 1 04/20/2008 Overview: Modified per HTN protocol #16. Reflux esophagitis 01/25/201 1 documented as of this encounter (statuses as of 01/11/2024) Immunizations Name Administration Dates Next Due COVID-19 mRNA, LNP-s, No Pre serve, 2-Dose Series (Everdream) 03/13/2021,07/11/2020,06/20/2020 Hepatitis B, 20+ yrs 01/08/2022,09/08/2021,03/13 PPD [...] encounter Miscellaneous Notes * Telephone Encounter - Shwetha Vela OSA - 01/11/2024 10:23 AM EDT Pt order faxed to [facility] Fax successful documented in this encounter Plan of Treatment Upcoming Encounters Date Type Department Care Team (Late st Contact Info) Description 03/07/2024 9:00 AM EST Telemedicine Neurology [address] [place] [address] Cam Mcpherson, DO [address] [facility] [place] [address] Cart, Telemed [facility] [address] [place] [address] 05/18/2024 10:00 AM EST Office Visit Neurology [facility] [address] [place] [address] Yuridia Kendall MD [address] [place] [address] 05/25/2024 2:00 PM EST Office Visit General Internal Medicine [facility] [place] [address] [place] [address] Becky Olson MD [address] [place] [address] Scheduled Procedures Name Priority Associated Diagnoses Date/Ti [...] Not on filedocumented as of this encounter Care Teams Architectural Drafter Relationship Specialty Start Date End Date Becky Olson MD 200 [place] [address] PCP - General Internal Medicine 01/15/21 documented as of this encounter
--- OUTSIDE RECORDS SUMMARY | 2024-01-24 14:50 | External Medical Summary | Summary of Care ---
Author Name Unknown Organization [facility] Address [address] [place] [address] Phone [phone] Care Team Providers Care Helpdesk Specialist Name Role Phone Becky Olson MD Primary Care Provider [phone] Reason for Visit * Reason Comments eRx-Medication Refill Encounter Details Date Type Department Care Team (Late st Contact Info) Description 01/12/2024 Refill General Internal Medicine [facility] 200 [place] [address] Trish Prather MD [address] [place] [address] Frontal headache Allergies Active Allergy Reactions Criticality Noted Date Comments No Known Drug Allergy 04/09/2008 documented as of this encounter (statuses as of 01/12/2024) Medications Medication Sig Dispensed Refills Start Date [...] BY MOUTH EVERYDAY AT BEDTIME 11/04/2023 Active Magnesium Oxide 400 MG Oral TabletIndications :Frontal headache TAKE 1 TABLET BY MOUTH EVERY DAY IN THE MORNING 30 Tablet 11 12/16/2023 Active Gabapentin 100 MG Oral Capsule (Neurontin)Indica tions:Frontal headache TAKE 1 CAPSULE BY MOUTH EVERYDAY AT BEDTIME 30 Capsule 1 01/12/2024 Active Gabapentin 100 MG Oral Capsule (Neurontin)Indica tions:Frontal headache TAKE 1 CAPSULE BY MOUTH EVERYDAY AT BEDTIME 30 Capsule 1 11/15/2023 4 Discontinued documented as of this encounter (statuses as of 01/12/2024) Active Problems Problem Noted Date Diagnosed Date [...] as of this encounter (statuses as of 01/12/2024) Resolved Problems Problem Noted Date Diagnosed Date [...] 07/09/2005 1 04/05/2010 Overview: Dr ramires at [facility]. HTN, goal to be determined 1 04/20/2008 Overview: Modified per HTN protocol #16. Reflux esophagitis 1 documented as of this encounter (statuses as of 01/12/2024) Immunizations Name Administration Dates Next Due COVID-19 mRNA, LNP-s, No Pre serve, 2-Dose Series (Bringme) 03/13/2021,07/11/2020,06/20/2020 Hepatitis B, 20+ yrs 01/08/2022,09/08/2021,03/13 PPD [...] encounter Miscellaneous Notes * Telephone Encounter - Ruiz Martinez MD - 01/12/2024 2:50 PM EDTSigned Prescriptions: Disp Refills Gabapentin 100 MG Oral Capsule (Neurontin) 30 Cap*1 Sig: TAKE 1 CAPSULE BY MOUTH EVERYDAY AT BEDTIME Authorizing Provider: RUIZ MARTINEZ * Telephone Encounter - Melissa Douglas CMA - 01/12/2024 2:18 PM EDTPending Prescriptions: Disp Refills Gabapentin 100 MG Oral Capsule [Pharmacy M*30 Cap*1 Sig: TAKE 1 CAPSULE BY MOUTH EVERYDAY AT BEDTIME * Telephone Encounter - Melissa Douglas CMA - 01/12/2024 2:17 PM EDT Did you pend patient's preferred pharmacy and medication before forwarding?yes Pharmacy: [id number] Pending Prescriptions: Disp Refills Gabapentin 100 MG Oral Capsule (Neurontin*30 Cap*1 Sig: TAKE 1 CAPSULE BY MOUTH EVERYDAY AT BEDTIME Last Visit: 11/22/2023 (in office), Visit date not found (telemedicine) Next Visit: 05/25/2024 If no future appointments scheduled, and last appointment is greater than a year ago, please schedule patient for a follow-up appointment Last date the medication was ordered: 11/15/23 Urine Drug Screen:No results found. However, due to the size of the patient record, not all encounters were searched. Please check Results Review for a complete set of results. Patient Phone Numbers Labs: Lab Results Component Value Date/Time CREAT 1.0 11/22/2023 11:01 AM CREAT 0.98 09/22/2023 12:00 AM CREAT 0.8 04/16/2020 12:43 PM POTASSIUM 4.8 11/22/2023 11:01 AM POTASSIUM 4.1 09/22/2023 12:00 AM POTASSIUM 4.3 04/16/2020 12:43 PM TSH 1.34 11/22/2023 11:01 AM TSH 1.37 05/17/2020 12:00 AM TSH 1.82 01/23/2020 02:39 PM LDL 101 11/22/2023 11:01 AM LDL 95 12/08/2019 09:36 AM LDLCALC 102 (A) 05/17/2020 12:00 AM ALT 15 11/22/2023 11:01 AM ALT 111 (H) 04/05/2020 10:14 AM HGBA1C 6.0 (H) 11/22/2023 11:01 AM HGBA1C 5.7 05/17/2020 12:00 AM HGBA1C 6.4 (H) 12/08/2019 09:36 AM * Telephone Encounter - Hung Batista - 01/12/2024 1:15 PM EDTPending Prescriptions: Disp Refills Gabapentin 100 MG Oral Capsule [Pharmacy M*30 Cap*1 Sig: TAKE 1CAPSULE BY MOUTH EVERYDAY AT BEDTIME documented in this encounter Plan of Treatment Upcoming Encounters Date Type Department Care Team (Late st Contact Info) Description 03/07/2024 9:00 AM EST Telemedicine Neurology [address] [place] [address] Cam Mcpherson, DO [address] [facility] [place] [address] Cart, Telemed [facility] [address] [place] [address] 05/18/2024 10:00 AM EST Office Visit Neurology [facility] 200 [facility] [place] [address] Yuridia Kendall MD [address] [place] [address] 05/25/2024 2:00 PM EST Office Visit General Internal Medicine [facility] [address] [place] [address] Becky Olson MD 200 [place] [address] Scheduled Procedures Name Priority Associated Diagnoses Date/Ti [...] as of this encounter Visit Diagnoses Diagnosis Frontal headache Headache documented in this encounter Care Teams Helpdesk Specialist Relationship Specialty Start Date End Date Becky Olson MD [address] [place] [address] [place] [address] PCP - General Internal Medicine 01/15/21 documented as of this encounter
--- OUTSIDE RECORDS SUMMARY | 2024-01-24 14:50 | External Medical Summary | Summary of Care ---
Author Name Unknown Organization [facility] Address [address] [place] [address] Phone [phone] Care Team Providers Care Director Of Strategic Sourcing Name Role Phone Becky Olson MD Primary Care Provider [phone] Encounter Details Date Type Department Care Team (Late st Contact Info) Description 11/17/2023 Documentation Neuropsychology [facility] 200 [place] [address] Polo Martínez, PhD 200 [place] [address] Allergies Active Allergy Reactions Criticality Noted Date [...] AT BEDTIME 30 Capsule 1 11/15/2023 Active documented as of this encounter (statuses [...] 07/09/2005 1 04/05/2010 Overview: Dr ramires at [facility]. HTN, goal to be determined 1 04/20/2008 Overview: Modified per HTN protocol #16. Reflux esophagitis 1 documented as of this encounter (statuses as of 12/17/2023) Immunizations Name Administration Dates Next Due COVID-19 mRNA, LNP-s, No Pre serve, 2-Dose Series (Kamida) 03/13/2021,07/11/2020,06/20/2020 Hepatitis B, 20+ yrs 01/08/2022,09/08/2021,03/13 PPD [...] Martínez, PhD - 12/17/2023 12:21 PM EDT NEUROPSYCHOLOGY: SCORE SUMMARY SHEET Name: Yessy Myrick Age: 57 Education:12 years Date of Evaluation: 11/17/2023 DEPARTMENT OF PSYCHIATRY NEUROPSYCHOLOGICAL TEST RESULTS IQ, Index, and Standard Scores (SS): Mean = 100; Standard Deviation = 15 Scaled Scores: Mean = 10; Standard Deviation = 3 Z scores (z): Mean = 0; Standard Deviation = 1 T scores (T); Mean = 50; Standard Deviation = 10 GENERAL INTELLECTUAL FUNCTIONING/ACHIEVEMENT Filemon Adult Intelligence Scale-IV (WAIS-IV) Verbal Comprehension Index = 56 (52-63, 95% Confidence Interval) Similarities: ss = 3 Vocabulary: ss = 3 Information: ss = 2 Perceptual Reasoning Index = 63 (59-71, 95% Confidence Interval) Block Design: ss = 2 Matrix Reasoning: ss = 5 Visual Puzzles: ss = 4 Working Memory Index = 58 (54-67, 95% Confidence Interval) Digit Span: ss = 1 Arithmetic: ss = 4 Processing Speed Index = 53 (49-66, 95% Confidence Interval) Symbol Search: ss = 2 Coding: ss = 1 Full Scale IQ = 51 (48-56, 95% Confidence Interval) Wide Range Achievement Test - 4TH Edition (WRAT-4) Word Reading Standard Score = 69; Grade Equivalent = 4.1 Repeatable Battery for the Assessment of Neuropsychological Status (Form A) Raw Standardized Scores Immediate Memory Index = 40 List Learning 9 (1,2,3,3) ss = 1 Story Memory 2 ss = 1 Visuospatial/Constructional Index = 50 Figure Copy 6 ss = 1 Line Orientation 3 ?2 cumul % Language Functioning Index = 79 Picture Naming 9 17-25 cumul % Semantic Fluency 11 ss = 3 Attention Index = 53 Digit Span 5 ss = 3 Coding 20 ss = 3 Delayed Memory Index = 48 List Recall 0 ?2 cumul % List Recognition 15 ?2 cumul % Story Recall 1 ss = 1 Figure Recall 0 ss = 1 Total Scale Index = 48 Polo Martínez, Ph.D., ABN Neuropsychologist documented in this encounter Plan of Treatment Upcoming Encounters Date Type Department Care Team (Late st Contact Info) Description 03/07/2024 9:00 AM EST Telemedicine Neurology [address] [place] [address] Cam Mcpherson, DO [address] [facility] [place] [id number] Cart, Telemed [facility] 200 [facility] [place] [address] 05/18/2024 10:00 AM EST Office Visit Neurology [facility] 200 [facility] [place] [address] Yuridia Kendall MD 200 [facility] [place] [address] 05/25/2024 2:00 PM EST Office Visit General Internal Medicine [facility] 200 [facility] [place] [address] Becky Olson MD 200 [facility] [place] [address] Scheduled Procedures Name Priority Associated Diagnoses Date/Ti [...] filedocumented as of this encounter Care Teams Director Of Strategic Sourcing Relationship Specialty Start Date End Date Becky Olson MD 200 [facility] [place] [address] PCP - General Internal Medicine 01/15/21 documented as of this encounter
--- OUTSIDE RECORDS SUMMARY | 2024-01-24 14:51 | External Medical Summary ---
Author Name Unknown Address Unknown Organization [id number]:[facility] - [address] [place] [address] Laboratory Report Ordering Provider Test Date Status TARAHJIEJOSE ENRIQUE 11/22/2023 11:01:05 Final Observation Date Value Abnormality Reference (Units ) Status T4, Free 11/22/2023 11:01:05 1.4 0.9-1.7 (n g/dL) Final Performing Location [facility] - [address] [place] [address]
--- OUTSIDE RECORDS SUMMARY | 2024-01-24 14:51 | External Medical Summary ---
Author Name Unknown Address Unknown Organization [id number]:[facility] - [address] [facility] [address] [place] [address] Laboratory Report Ordering Provider Test Date Status ANDRES RASCON 11/22/2023 11:01:05 Final Observation Date Value Abnormality Reference (Units ) Status HbA1C 11/22/2023 11:01:05 6.0 Above high normal 4. 0-5.6 (%) Final The use of HbA1c to monitor glycemic status is based on normal hemoglobin and HbA composition. This test should not be used in patients with abnormal hemoglobin that affects the half life of the red blood cell or the in vivo glycation rates. Glucose, estimated average 11/22/2023 11:01:05 126 Above high normal <126 (mg/dL) Jagdish lopes Performing Location [facility] - [address] [place] [address]
--- OUTSIDE RECORDS SUMMARY | 2024-01-24 14:51 | External Medical Summary ---
Author Name Unknown Address Unknown Organization [id number]:[facility] - [address] [place] [address] Laboratory Report Ordering Provider Test Date Status ANDRES RASCON 11/22/2023 11:01:05 Final Observation Date Value Abnormality Reference (Units ) Status BUN 11/22/2023 11:01:05 18 6-20 (mg/dL) Final Creatinine 11/22/2023 11:01:05 1.0 0.5-1.0 (mg/dL) Final Glomerular filtration rate/1.73 sq M.predicted [Volume Rate/Area] in Serum, Plasma or Blood by Creatinine-based formula (CKD-EPI) 11/22/2023 11:01:05 62 >=60 (mL/min) Final eGFR is calculated based on the CKD-EPI 2020 equation. Sodium 11/22/2023 11:01:05 140 135-146 (m mol/L) Final Potassium 11/22/2023 11:01:05 4.8 3.5-5.1 (m mol/L) Final Cl 11/22/2023 11:01:05 105 98-107 (mm ol/L) Final CO2 11/22/2023 11:01:05 21 Below low normal 22- 32 (mmol/L) Final Anion gap 11/22/2023 11:01:05 14 7-15 (mmol /L) Final Glucose 11/22/2023 11:01:05 91 70-120 (mg /dL) Final Albumin 11/22/2023 11:01:05 4.4 3.8-5.0 (g /dL) Final AST (Aspartate aminotransferase) 11/22/2023 11:01:05 15 10-35 (U/L) Fin al Alk Phos 11/22/2023 11:01:05 113 35-130 (U/ L) Final Bilirubin, Total 11/22/2023 11:01:05 0.2 <=1 .2 (mg/dL) Final Calcium 11/22/2023 11:01:05 9.9 8.4-10.2 ( mg/dL) Final Protein 11/22/2023 11:01:05 6.6 6.0-8.3 (g /dL) Final ALT (Alanine aminotransferase) 11/22/2023 11:01:05 15 10-35 (U/L) Jagdish lopes Performing Location [facility] [address] [place] [address]
--- OUTSIDE RECORDS SUMMARY | 2024-01-24 14:51 | External Medical Summary | Summary of Care ---
Author Name Unknown Organization [facility] Address [address] [place] [address] Phone [phone] Care Team Providers Care Nylon Hot Wire Cutter Name Role Phone Becky Olson MD Primary Care Provider [phone] Reason for Visit * Reason Onset Date Comments Forms Request 11/23/2023 Encounter Details Date Type Department Care Team (Late st Contact Info) Description 11/23/2023 Telephone General Internal Medicine [facility] 200 [facility] [place] [address] Becky Olson MD [address] [place] [address] Forms Request Allergies Active Allergy Reactions Criticality Noted Date Comments No Known Drug Allergy 04/09/2008 documented as of this encounter (statuses as of 11/23/2023) Medications Medication Sig Dispensed Refills Start Date [...] 1 tablet by mouth nightly 07/13/2021 Active metFORMIN HCl ER 500 MG Oral Tablet Extended Release 24 Hour (Glucophage XR)Indications:Predi abetes Take 1 Tablet by mouth in the morning and 1 Tablet before bedtime. 90 Tablet 3 05/14/2022 Active Benztropine Mesylate 0.5 MG Oral Tablet [...] the morning. 90 Capsule 3 06/17/2023 Active Magnesium Oxide 400 MG Oral TabletIndications:Fr ontal headache TAKE 1 TABLET BY MOUTH EVERY DAY IN THE MORNING 30 Tablet 2 08/26/2023 Active Meclizine HCl 25 MG Oral Tablet [...] as of this encounter (statuses as of 11/23/2023) Active Problems Problem Noted Date Diagnosed Date [...] as of this encounter (statuses as of 11/23/2023) Resolved Problems Problem Noted Date Diagnosed Date [...] 07/09/2005 1 04/05/2010 Overview: Dr ramires at [facility]. HTN, goal to be determined 1 04/20/2008 Overview: Modified per HTN protocol #16. Reflux esophagitis 1 documented as of this encounter (statuses as of 11/23/2023) Immunizations Name Administration Dates Next Due COVID-19 mRNA, LNP-s, No Pre serve, 2-Dose Series (VB Rags) 03/13/2021,07/11/2020,06/20/2020 Hepatitis B, 20+ yrs 01/08/2022,09/08/2021,03/13 PPD 10/03/2018, 7,06/25/2014,05/30,05/07/2010,05/14/2008,05/07/2006 Pneumococcal Polysaccharide PPV23 (Pneumovax) 07/11/2018 Seasonal Influenza, PF, 6 M & above, IM , (FluLaval or Fluzone) 05/14/2023,05/14/2022,01/20/2021,01/01,01/27/2018,12/23/2016 Seasonal Influenza, Quadriva lent, No Preserve, IM 12/23/2018,11/22/2017,12/23/2015 Seasonal Influenza, Quadriva lent, No Preserve, Mdck 01/05/2020 Seasonal Influenza, Split, I IV3, No Preserve, Inj 03/12/2009 Seasonal Influenza, Split, I IV3, With Preserve, Inj 11/13/2014,01/08/2014,01/26/2013,01/11,12/29/2010,12/16/2009,05/20/2009 ,03/05/2008,01/27/2006 TDAP (age 10 and older)(Boostrix) [...] encounter Miscellaneous Notes * Telephone Encounter - Perla Douglas MED ASSIST - 11/23/2023 10:33 AM EDT Spoke with critical care educator Kristine Whitten regarding MA-51 form. She requests it be faxed to [phone]. Signed form and OV successfully faxed to above number. Copy of form placed in [facility]. documented in this encounter Plan of Treatment Upcoming Encounters Date Type Department Care Team (Late st Contact Info) Description 12/08/2023 9:00 AM EDT Imaging Radiology [address] [facility] [place] [address] 12/15/2023 10:00 AM EDT Therapy Neuropsychology [facility] [address] [place] [address] Polo Martínez, PhD [address] [facility] [place] [address] 05/18/2024 10:00 AM EST Office Visit Neurology [facility] [address] [place] [address] Yuridia Kendall MD [address] [place] [address] 05/25/2024 2:00 PM EST Office Visit General Internal Medicine [facility] [place] [address] [place] [address] Becky Olson MD [address] [place], [place] [address] Scheduled Procedures Name Priority Associated Diagnoses Date/Ti me COLONOSCOPY FLEXIBLE PROXIMAL DIAGNOSTIC Recall History of colon polyps Health Maintenance Due Date Last Done Comments HIV Screening 12/08/1979 HPV/Co-Test 1994 Cologuard 2009 Fecal Occult Blood Test 2009 Sigmoidoscopy 2009 Pap Smear 07/16/2017 07/16/2014, 04/29, 05/12/2011, Additional history exists COVID-19 Vaccine ( season) 2023 03/13/2021, 07/11/2020, 06/20/2020 Postponed from 11/27/2022 (Patient Declined After Education) Zoster Vaccines (1 of 2) 11/23/2023 Pos tponed from 2014 (Patient Declined After Education) Influenza Vaccine (FLU shot) (#1) 2023 05/14/2023, 05/14/2022, 01/20/2021, Additional history exists Mammogram 12/03/2023 12/02/2022, 08/2022, 08/20/2021, Additional history exists Cervical Cancer Screening 01/21/2024 Po stponed from 07/16/2017 (Contraindicated Today) Depression Monitoring 09/28/2024 09/29/2023 B-12 11/21/2024 11/22/2023, 04/29, 12/02/2022, Additional history exists HbA1c 11/21/2024 11/22/2023, 050 03/2023, 12/02/2022, Additional history exists Colonoscopy 04/15/2025 04/15/2022, [...] filedocumented as of this encounter Care Teams Nylon Hot Wire Cutter Relationship Specialty Start Date End Date Becky Olson MD [address] [place] [address] PCP - General Internal Medicine 01/15/21 documented as of this encounter
--- OUTSIDE RECORDS SUMMARY | 2024-01-24 14:51 | External Medical Summary ---
Author Name Unknown Address Unknown Organization K09:[facility] [address] [place] [address] Laboratory Report Ordering Provider Test Date Status ANDRES RASCON 11/22/2023 11:01:05 Final Observation Date Value Abnormality Reference (Units ) Status WBC, Total 11/22/2023 11:01:05 6.18 4.00-10.8 0 (K/uL) Final RBC 11/22/2023 11:01:05 4.37 3.85-5.15 (M/uL) Final Hemoglobin 11/22/2023 11:01:05 12.9 12.0-15.3 (g/dL) Final HCT 11/22/2023 11:01:05 40.0 36.0-45.2 (%) Final MCV 11/22/2023 11:01:05 91.5 81.5-97.5 (fL) Final MCH 11/22/2023 11:01:05 29.5 27.0-34.0 (pg) Final MCHC 11/22/2023 11:01:05 32.3 32.0-36.0 (g/dL) Final RDW 11/22/2023 11:01:05 13.3 11.5-15.5 (%) Final Platelets 11/22/2023 11:01:05 241 140-400 (K /uL) Final MPV 11/22/2023 11:01:05 9.8 6.6-11.1 ( fL) Final Performing Location [facility] [address] [place] [address]
--- OUTSIDE RECORDS SUMMARY | 2024-01-24 14:51 | External Medical Summary | Summary of Care ---
Author Name Unknown Organization [facility] Address [address] [place] [address] Phone [phone] Care Team Providers Care Divinity Teacher Name Role Phone Tarah Olson MD Primary Care Provider [phone] Reason for Visit * Reason Comments eRx-Medication Refill Encounter Details Date Type Department Care Team (Late st Contact Info) Description 12/15/2023 Refill General Internal Medicine [facility] [address] [facility] [place] [address] Tarah Olson MD [address] [place] [address] Frontal headache Allergies Active Allergy Reactions Criticality Noted Date Comments No Known Drug Allergy 04/09/2008 documented as of this encounter (statuses as of 12/16/2023) Medications Medication Sig Dispensed Refills Start Date [...] THE MORNING 30 Tablet 11 12/16/2023 Active Magnesium Oxide 400 MG Oral TabletIndications :Frontal headache TAKE 1 TABLET BY MOUTH EVERY DAY IN THE MORNING 30 Tablet 2 08/26/2023 4 Discontinued documented as of this encounter (statuses as of 12/16/2023) Active Problems Problem Noted Date Diagnosed Date [...] as of this encounter (statuses as of 12/16/2023) Resolved Problems Problem Noted Date Diagnosed Date [...] 07/09/2005 1 04/05/2010 Overview: Dr ramires at [facility]. HTN, goal to be determined 1 04/20/2008 Overview: Modified per [facility] protocol #16. Reflux esophagitis 1 documented as of this encounter (statuses as of 12/16/2023) Immunizations Name Administration Dates Next Due COVID-19 mRNA, LNP-s, No Pre serve, 2-Dose Series ([employer]) 03/13/2021,07/11/2020,06/20/2020 Hepatitis B, 20+ yrs 01/08/2022,09/08/2021,03/13 PPD [...] encounter Miscellaneous Notes * Telephone Encounter - Tarah Olson MD - 12/16/2023 7:23 PM EDTSigned Prescriptions: Disp Refills Magnesium Oxide 400 MG Oral Tablet 30 Tab*11 Sig: TAKE 1 TABLET BY MOUTH EVERY DAY IN THE MORNING Authorizing Provider: TARAH OLSON * Telephone Encounter - Fletcher Angulo CMA - 12/16/2023 3:12 PM EDTPending Prescriptions: Disp Refills Magnesium Oxide 400 MG Oral Tablet [Pharma*30 Tab*2 Sig: TAKE 1 TABLET BY MOUTH EVERY DAY IN THE MORNING * Telephone Encounter - Fletcher Angulo CMA - 12/16/2023 3:12 PM EDT Did you pend patient's preferred pharmacy and medication before forwarding?yes Pharmacy: [id number] Pending Prescriptions: Disp Refills Magnesium Oxide 400 MG Oral Tablet [Pharm*30 Tab*2 Sig: TAKE 1 TABLET BY MOUTH EVERY DAY IN THE MORNING Last Visit: 11/22/2023 (in office), Visit date not found (telemedicine) Next Visit: 05/25/2024 If no future appointments scheduled, and last appointment is greater than a year ago, please schedule patient for a follow-up appointment Last date the medication was ordered: 08.26.2023 Is this request for a controlled substance?No Urine Drug Screen:No results found. However, due [...] 12/08/2019 09:36 AM * Telephone Encounter - AlexeifeleciaHung - 12/16/2023 1:49 PM EDTPending Prescriptions: Disp Refills Magnesium Oxide 400 MG Oral Tablet [Pharma*30 Tab*2 Sig: TAKE 1TABLET BY MOUTH EVERY DAY IN THE MORNING documented in this encounter Plan of Treatment Upcoming Encounters Date Type Department Care Team (Late st Contact Info) Description 03/07/2024 9:00 AM EST Telemedicine Neurology [address] [place] [address] Cam Mcpherson, DO [address] [facility] [place] [address] Cart, Telemed [facility] [address] [place] [address] 05/18/2024 10:00 AM EST Office Visit Neurology [facility] [address] [place] [address] Yuridia Kendall MD [address] [place] [address] 05/25/2024 2:00 PM EST Office Visit General Internal Medicine [facility] [address] [place] [address] Tarah Olson MD 200 [place] [address] Scheduled Procedures Name Priority Associated Diagnoses Date/Ti [...] Headache documented in this encounter Care Teams Divinity Teacher Relationship Specialty Start Date End Date Tarah Olson MD [address] [place] [address], [place] [address] PCP - General Internal Medicine 01/15/21 documented as of this encounter
--- OUTSIDE RECORDS SUMMARY | 2024-01-24 14:51 | External Medical Summary ---
Author Name Unknown Address Unknown Organization [facility] [address] [place] [address] Laboratory Report Ordering Provider Test Date Status ANDRES RASCON 11/22/2023 11:01:05 Final Observation Date Value Abnormality Reference (Units ) Status TSH 11/22/2023 11:01:05 1.34 0.27-4.20 (uIU/mL) Final Performing Location [facility] [address] [place] [address]
--- OUTSIDE RECORDS SUMMARY | 2024-01-24 14:51 | External Medical Summary ---
Author Name Unknown Address Unknown Organization [facility] - [address] [place] [address] Laboratory Report Ordering Provider Test Date Status ANDRES RASCON 11/22/2023 11:01:05 Final Observation Date Value Abnormality Reference (Units ) Status Folic Acid 11/22/2023 11:01:05 10.2 >4.5 (ng/ mL) Final Performing Location [facility] - [address] [place] [address]
--- OUTSIDE RECORDS SUMMARY | 2024-01-24 14:51 | External Medical Summary ---
Author Name Unknown Address Unknown Organization [facility] - [address] [place] [address] Laboratory Report Ordering Provider Test Date Status ANDRES RASCON 11/22/2023 11:01:05 Final Observation Date Value Abnormality Reference (Units ) Status Vitamin B12 11/22/2023 11:01:05 >2000 Above high normal 232-1245 (pg/mL) Final Performing Location [facility] - [address] [place] [address]
--- OUTSIDE RECORDS SUMMARY | 2024-01-24 14:51 | External Medical Summary | Summary of Care ---
Author Name Unknown Organization [facility] Address [address] [place] [address] Phone [phone] Care Team Providers Care Sheriff Officer Name Role Phone Becky Olson MD Primary Care Provider [phone] Reason for Visit * Reason Comments Outpatient Testing Encounter Details Date Type Department Care Team (Late st Contact Info) Description 11/22/2023 11:00 AM EDT Laboratory Laboratory [facility] [address] [place] [id number] [place], [facility] [place] [address] Hyperlipidemia LDL goal <100; Loss of weight; Impaired fasting glucose; Dizziness; Imbalance Allergies Active Allergy Reactions Criticality Noted Date Comments No Known Drug Allergy 04/09/2008 documented as of this encounter (statuses as of 11/22/2023) Medications Medication Sig Dispensed Refills Start Date [...] as of this encounter (statuses as of 11/22/2023) Active Problems Problem Noted Date Diagnosed Date [...] as of this encounter (statuses as of 11/22/2023) Resolved Problems Problem Noted Date Diagnosed Date [...] 07/09/2005 1 04/05/2010 Overview: Dr ramires at [facility]. HTN, goal to be determined 1 04/20/2008 Overview: Modified per HTN protocol #16. Reflux esophagitis 1 documented as of this encounter (statuses as of 11/22/2023) Immunizations Name Administration Dates Next Due COVID-19 mRNA, LNP-s, No Pre serve, 2-Dose Series ([employer]) 03/13/2021,07/11/2020,06/20/2020 Hepatitis B, 20+ yrs 01/08/2022,09/08/2021,03/13 PPD [...] on file documented as of this encounter Plan of Treatment Upcoming Encounters Date Type Department Care Team (Late st Contact Info) Description 12/08/2023 9:00 AM EDT Imaging Radiology [address] [facility] [place] [address] 12/15/2023 10:00 AM EDT Therapy Neuropsychology [facility] [address] [place] [address] Polo Martínez, PhD 200 [facility] [place] [address] 05/18/2024 10:00 AM EST Office Visit Neurology [facility] [address] [place] [address] Yuridia Kendall MD 200 [facility] [place] [address] 05/25/2024 2:00 PM EST Office Visit General Internal Medicine [facility] [address] [place] [address] Becky Olson MD 200 [facility] [place] [address] Pending Results Name Type Priority Associated Diagnoses Date /Time COMPREHENSIVE METABOLIC PANEL Lab Routine Hyperlipidemia LDL goal <100 11/22/2023 11:01 AM EDT TSH Lab Routine Loss of weight 11/22/2023 11:01 AM EDT T4, FREE Lab Routine Loss of weight 11/22/2023 11:01 AM EDT LIPID PANEL WITH DIRECT LDL IF TG IS HIGH Lab Routine Hyperlipidemia LDL goal <100 11/22/2023 11:01 AM EDT HEMOGLOBIN A1C Lab Routine Impaired fasting glucose 11/22/2023 11:01 AM EDT VITAMIN B12 Lab Routine Dizziness Imbalance 11/22/2023 11:01 AM EDT FOLIC ACID Lab Routine Dizziness Imbalance 11/22/2023 11:01 AM EDT Scheduled Procedures Name Priority Associated Diagnoses Date/Ti [...] 01/20/2021, Additional history exists Mammogram 12/03/2023 12/02/2022, 09/0 08/2022, 08/20/2021, Additional history exists Cervical Cancer Screening 01/21/2024 Po stponed from 07/16/2017 (Contraindicated Today) B-12 05/14/2024 05/14/2023, 09/0 08/2022, 07/27/2022, Additional history exists HbA1c 07/27/2024 07/28/2023, 09/0 08/2022, 10/14/2022, Additional history exists Depression Monitoring 09/28/2024 09/29/2023 Colonoscopy 04/15/2025 04/15/2022, 03/29, 06/24/2018, Additional history exists Colorectal Cancer Screening 04/15/2025 Lipid Panel 10/15/2027 10/14/2022, 04/29, 04/07/2021, Additional history exists DTaP,Tdap,and Td Vaccines (3 - Td or Tdap) 10/10/2028 10/10/2018, 07/20/2007 Pneumococcal Vaccine: Pediatrics (0 to 5 Years) [...] Not on filedocumented as of this encounter Procedures Procedure Name Priority Date/Time Associated Diagnosis Comments CBC Routine 11/22/2023 11:01 AM EDT Imbalance documented in this encounter Results * CBC (11/22/2023 11:01 AM EDT) WBC 6.18 4.00 - 10.80 K/uL 11/22/2023 11:11 AM EDT [facility] [place] 56- RBC 4.37 3.85 - 5.15 M/uL 11/22/2023 11:11 AM EDT [facility] 56- HGB 12.9 12.0 - 15.3 g/dL 11/22/2023 11:11 AM EDT [facility] [place] 56- HCT 40.0 36.0 - 45.2 % 11/22/2023 11:11 AM EDT [facility] 56- MCV 91.5 81.5 - 97.5 fL 11/22/2023 11:11 AM EDT [facility] 56- MCH 29.5 27.0 - 34.0 pg 11/22/2023 11:11 AM EDT [facility] 56- MCHC 32.3 32.0 - 36.0 g/dL 11/22/2023 11:11 AM EDT [facility] 56- RDW 13.3 11.5 - 15.5 % 11/22/2023 11:11 AM EDT [facility] PLT 241 140 - 400 K/uL 11/22/2023 11:11 AM EDT [facility] MPV 9.8 6.6 - 11.1 fL 11/22/2023 11:11 AM EDT [facility] Blood Venous blood specimen / Unknown Venipuncture / Unknown 11/22/2023 11:01 AM EDT 11/22/2023 11:01 AM EDT Becky Olson MD LAB BLOOD ORDERABLES [facility] 200 [place] [address] documented in this encounter Visit Diagnoses Diagnosis Hyperlipidemia LDL goal <100 Other and unspecified hyperlipidemia Loss of weight Impaired fasting glucose Dizziness Dizziness and giddiness Imbalance Abnormality of gait documented in this encounter Care Teams Sheriff Officer Relationship Specialty Start Date End Date [place]y Olson MD [address] [facility] [address] PCP - General Internal Medicine 01/15/21 documented as of this encounter
--- OUTSIDE RECORDS SUMMARY | 2024-01-24 14:51 | External Medical Summary | Summary of Care ---
Author Name Unknown Organization [facility] Address [address] [place] [address] Phone [phone] Care Team Providers Care Event Technician Name Role Phone Becky Olson MD Primary Care Provider [phone] Reason for Visit * Reason Onset Date Comments Fax 12/13/2023 Encounter Details Date Type Department Care Team (Late st Contact Info) Description 12/13/2023 Telephone General Internal Medicine [facility] 200 [place] [address] Becky Olson MD 200 [place] [address] Fax Allergies Active Allergy Reactions Criticality Noted Date Comments No Known Drug Allergy 04/09/2008 documented as of this encounter (statuses as of 12/14/2023) Medications Medication Sig Dispensed Refills Start Date [...] as of this encounter (statuses as of 12/14/2023) Active Problems Problem Noted Date Diagnosed Date [...] as of this encounter (statuses as of 12/14/2023) Resolved Problems Problem Noted Date Diagnosed Date [...] 07/09/2005 1 04/05/2010 Overview: Dr ramires at [facility]. HTN, goal to be determined 1 04/20/2008 Overview: Modified per HTN protocol #16. Reflux esophagitis 1 documented as of this encounter (statuses as of 12/14/2023) Immunizations Name Administration Dates Next Due COVID-19 mRNA, LNP-s, No Pre serve, 2-Dose Series ([employer]) 03/13/2021,07/11/2020,06/20/2020 Hepatitis B, 20+ yrs 01/08/2022,09/08/2021,03/13 PPD [...] Telephone Encounter - Shwetha Vela OSA - 12/14/2023 12:12 PM EDT Paperwork faxed to [employer] Fax successful * Telephone Encounter - vIette Murguia OSA - 12/13/2023 11:11 AM EDT Rhea Cohen from [facility] needs the referral and demographic sheet faxed over, as Patient is being seen on 12/20/23. Fax to:[phone] documented in this encounter Plan of Treatment Upcoming Encounters Date Type Department Care Team (Late st Contact Info) Description 12/15/2023 10:00 AM EDT Therapy Neuropsychology [facility] [address] [place] [address] [address] Polo Martínez, PhD [address] [place] [address] 05/18/2024 10:00 AM EST Office Visit Neurology [facility] [address] [place] [address] Yuridia Kendall MD [address] [place] [address] 05/25/2024 2:00 PM EST Office Visit General Internal Medicine [facility] [address] [place] [address] Becky Olson MD [address] [place] [address] Scheduled Procedures Name Priority Associated Diagnoses Date/Ti [...] filedocumented as of this encounter Care Teams Event Technician Relationship Specialty Start Date End Date Becky Olson MD 200 [place] [address] PCP - General Internal Medicine 01/15/21 documented as of this encounter
--- OUTSIDE RECORDS SUMMARY | 2024-01-24 14:51 | External Medical Summary ---
Author Name Unknown Address Unknown Organization [facility] [address] [facility] [place] [address] Laboratory Report Ordering Provider Test Date Status ANDRES RASCON 11/22/2023 11:01:05 Final Observation Date Value Abnormality Reference (Units ) Status Triglyceride 11/22/2023 11:01:05 115 <=174 ( mg/dL) Final Triglyceride Reference Range s (mg/dL):
<150 Acceptable
150-174 Borderline high
175-499 High
>=500 Very high Cholesterol 11/22/2023 11:01:05 170 <200 (mg /dL) Final Total Cholesterol Reference Ranges (mg/dL):
<200 Desirable
200-239 Borderline high
>=240 High HDL 11/22/2023 11:01:05 46 Below low normal >49 (mg/dL) Final HDL Cholesterol Reference Ra nges (mg/dL):
>=60 High (Desirable)
<50 Low (Undesirable) For Females
<40 Low (Undesirable) For Males NON-HDL CHOLESTEROL 11/22/2023 11:01:05 124 <=159 (mg/dL) Final Non-HDL Cholesterol Referenc e Range (mg/dL):
<100 Target level for high risk ASCVD patient
<130 Optimal for general population
130-159 Near optimal for general population
160-189 Borderline High
190-219 High
>=220 Very High LDL, (calculated) 11/22/2023 11:01:05 101 <= 129 (mg/dL) Final LDL Cholesterol Reference Ra nges (mg/dL):
<70 Target level for high risk ASCVD patient
<100 Optimal for general population
100-129 Near optimal for general population
130-159 Borderline high
160-189 High
>=190 Very high Performing Location [facility] [place] [address] [place] [address]
--- OUTSIDE RECORDS SUMMARY | 2024-01-24 14:51 | External Medical Summary | Summary of Care ---
Author Name Unknown Organization [facility] Address [address] [place] [address] Phone [phone] Care Team Providers Care Prescription Benefit Specialist Name Role Phone Becky Olson MD Primary Care Provider [phone] Reason for Visit * Reason Onset Date Comments Test Results 11/23/2023 Encounter Details Date Type Department Care Team (Late st Contact Info) Description 11/23/2023 Telephone General Internal Medicine [facility] 200 [facility] [place] [address] Becky Olson MD 200 [place] [address] Test Results Allergies Active Allergy Reactions Criticality Noted Date Comments No Known Drug Allergy 04/09/2008 documented as of this encounter (statuses as of 11/25/2023) Medications Medication Sig Dispensed Refills Start Date [...] 06/17/2023 Active Magnesium Oxide 400 MG Oral TabletIndications [...] AT BEDTIME 30 Capsule 1 11/15/2023 Active metFORMIN HCl ER 500 MG Oral Tablet Extended Release 24 Hour (Glucophage XR)Indications:Pr ediabetes Take 1 Tablet by mouth in the morning and 1 Tablet before bedtime. 90 Tablet 3 05/14/2022 11/23/2023 Discontinued (Medication/ Dose Changed) documented as of this encounter (statuses as of 11/25/2023) Active Problems Problem Noted Date Diagnosed Date [...] as of this encounter (statuses as of 11/25/2023) Resolved Problems Problem Noted Date Diagnosed Date [...] 07/09/2005 1 04/05/2010 Overview: Dr ramires at [facility]. HTN, goal to be determined 1 04/20/2008 Overview: Modified per HTN protocol #16. Reflux esophagitis 1 documented as of this encounter (statuses as of 11/25/2023) Immunizations Name Administration Dates Next Due COVID-19 mRNA, LNP-s, No Pre serve, 2-Dose Series ([employer]) 03/13/2021,07/11/2020,06/20/2020 Hepatitis B, 20+ yrs 01/08/2022,09/08/2021,03/13 PPD [...] encounter Miscellaneous Notes * Telephone Encounter - Becky Olson MD - 11/23/2023 4:32 PM EDT 3 months - ordered * Telephone Encounter - Priya Amaya LPN - 11/23/2023 4:16 PM EDT Called and informed pt's aged or disabled care worker of message. Asking when pt should have repeat labs Metformin d/c * Telephone Encounter - Priya Amaya LPN - 11/23/2023 4:14 PM EDT ----- Message from Becky Olson MD sent at 11/23/2023 9:14 AM EDT ----- Las stable . Sugar borderline but not bad - stop metformin for trial for now due to wt loss and lowappetite and will follow closely B12 high - lower dose to only 1000 MCG daily . Can take 5000 twice a week if has a lot of supply Rest okay. documented in this encounter Plan of Treatment Upcoming Encounters Date Type Department Care Team (Late st Contact Info) Description 12/08/2023 9:00 AM EDT Imaging Radiology [address], [address] [place] [address] 12/15/2023 10:00 AM EDT Therapy Neuropsychology [facility] [address] [facility] [address] [place] [address] Polo Martínez, PhD 200 [facility] [place] [address] 05/18/2024 10:00 AM EST Office Visit Neurology [facility] [address] [facility] [place] [address] Yuridia Kendall MD [address] [facility] [address] [place] [address] 05/25/2024 2:00 PM EST Office Visit General Internal Medicine [facility] 200 [facility] [place] [address] Becky Olson MD 200 [facility] [place] [address] Scheduled Orders Name Type Priority Associated Diagnoses Orde r Schedule HEMOGLOBIN A1C Lab Routine Impaired fasting glucose Expected: 02/23/2024 (Approximate), Expires: 11/22/2024 Scheduled Procedures Name Priority Associated Diagnoses Date/Ti me COLONOSCOPY FLEXIBLE PROXIMAL DIAGNOSTIC Recall History of colon polyps Health Maintenance Due Date Last Done Comments HIV Screening 12/08/1979 HPV/Co-Test 1994 Cologuard 2009 Fecal Occult Blood Test 2009 Sigmoidoscopy 2009 Zoster Vaccines (1 of 2) 2014 Pap Smear 07/16/2017 07/16/2014, 04/29, 05/12/2011, Additional history exists COVID-19 Vaccine ( season) 2022 03/13/2021, 07/11/2020, 06/20/2020 Influenza Vaccine (FLU shot) (#1) 2023 05/14/2023, 05/14/2022, 01/20/2021, Additional history exists Mammogram 12/03/2023 12/02/2022, 08/2022, 08/20/2021, Additional history exists Cervical Cancer Screening 01/21/2024 Po stponed from 07/16/2017 (Contraindicated Today) Depression Monitoring 09/28/2024 09/29/2023 B-12 11/21/2024 11/22/2023, 04/29, 12/02/2022, Additional history exists HbA1c 11/21/2024 11/22/2023, 05/0 03/2023, 12/02/2022, Additional history exists Colonoscopy 04/15/2025 [...] as of this encounter Visit Diagnoses Diagnosis Impaired fasting glucose- Primary documented in this encounter Care Teams Prescription Benefit Specialist Relationship Specialty Start Date End Date Becky Olson MD 200 [facility] [place] [address] PCP - General Internal Medicine 01/15/21 documented as of this encounter
--- OUTSIDE RECORDS SUMMARY | 2024-01-24 14:51 | External Medical Summary | Summary of Care ---
Author Name Unknown Organization [facility] Address [address] [place] [address] Phone [phone] Care Team Providers Care Tool Engine Lathe Set Up Operator Name Role Phone Becky Olson MD Primary Care Provider [phone] Reason for Visit * Reason Comments Neuropsychological Evaluation * - Authorized Specialty Diagnoses / Procedures Referred By Fátima arenas Referred To Contact Referral ID Status Reason Start Date Expiration Date V isits Requested Visits Authorized [id number] Authorized 10/26/2024 [id number] Encounter Details Date Type Department Care Team (Late st Contact Info) Description 11/17/2023 8:30 AM EDT Therapy Neuropsychology [facility] [address] [place] [address] Polo Martínez, PhD [address] [place] [address] Moderate intellectual disability*; Bipolar affective disorder in [...] morning. 10/04/2017 Active spironolactone (ALDACTONE) 50 MG TabletIndication s:Congenital adrenal hyperplasia (HCC) Take 1 Tablet by [...] Sodium 40 MG Oral Tablet Delayed Release (Protonix)Indica tions:Gastroesop hageal reflux disease without esophagitis Take 1 Tablet by mouth in the morning. 90 Tablet 1 12/31/2022 Active Vitamin B-12 5000 MCG Oral Tablet DisintegratingIn dications:Anemia due to vitamin B12 deficiency, unspecified B12 deficiency type Take 1 Tablet by mouth in the morning. 90 Tablet 3 06/07/2023 Active Loratadine 10 MG Oral CapsuleIndicatio ns:Acute non-recurrent frontal sinusitis Take 1 Capsule by mouth in the morning. 90 Capsule 3 06/17/2023 Active Meclizine HCl 25 MG Oral Tablet (Antivert)Indica tions:Benign positional vertigo, unspecified laterality Take 1 Tablet by mouth 3 times a day as needed for Dizziness. Er 09/22/23 09/29/2023 Active Riboflavin 400 MG Oral TabletIndication s:Frontal headache TAKE 1 TAB BY MOUTH IN THE MORNING. -OTC-. 90 Tablet 1 10/28/2023 Active Caplyta 10.5 MG Oral Capsule TAKE 1 CAPSULE BY MOUTH EVERYDAY AT BEDTIME 11/04/2023 Active Gabapentin 100 MG Oral Capsule (Neurontin)Indic ations:Frontal headache TAKE 1 CAPSULE BY MOUTH EVERYDAY AT BEDTIME 30 Capsule 1 11/15/2023 Active metFORMIN HCl ER 500 MG Oral Tablet Extended Release 24 Hour (Glucophage XR)Indications:P rediabetes Take 1 Tablet by mouth in the morning and 1 Tablet before bedtime. 90 Tablet 3 05/14/2022 4 Discontinued(Med ication/Dose Changed) Furosemide 20 MG Oral Tablet (Lasix)Indicatio ns:Bilateral leg edema Take 1 Tablet by mouth daily as needed for Other (swelling). 30 Tablet 11 11/02/2022 4 Discontinued(Pat ient preference/disco ntinuation) Magnesium Oxide 400 MG Oral TabletIndication s:Frontal headache TAKE 1 TABLET BY MOUTH EVERY [...] 07/09/2005 1 04/05/2010 Overview: Dr ramires at [facility]. HTN, goal to be determined 1 04/20/2008 Overview: Modified per HTN protocol #16. Reflux esophagitis 1 documented as of this encounter (statuses as of 12/17/2023) Immunizations Name Administration Dates Next Due COVID-19 mRNA, LNP-s, No Pre serve, 2-Dose Series (Happy Inspector) 03/13/2021,07/11/2020,06/20/2020 Hepatitis B, 20+ yrs 01/08/2022,09/08/2021,03/13 PPD [...] Progress Notes * Polo Martínez, PhD - 11/17/2023 8:38 AM EDT NEUROPSYCHOLOGY: REFERRAL AND INTAKE Patient Name: Yessy Myrick Date of : 1965 Age: 57 Education: Date of Evaluation: 11/17/2023 Identifying and Referral Information: Ms. Yessy Myrick was referred for a neuropsychological evaluation by Yuridia Rasmussen PA-C of [facility] to assess current cognitive and emotional/behavioral functioning in the context of reported decline. We discussed what to expect during the neuropsychological evaluation process. I described limits ofconfidentiality. Pt provided informed consent to proceed with the evaluation. Background Information: Pt seen by Yuridia Rasmussen PA-C on 11/08/2023: HPI & Source of HPI The aids were the historians. She developed new onset daily headaches. She had headaches in the past but they were only occasionally. She has a hard time defining the headaches. When asked if they are band like (yes) pressure (yes) pounding (yes). They are worse when lying down. They seem to center on the frontal nasal area. There is no vision changes and no ringing in her ears. Tylenol help some She is also has a lot of memory issues and new behavior issues. They want neuro psych testing and also an MRI to r/o tumors. Theywant to know if this is dementia. She was started on mg ox and riboflavin and more recently gabapentin. She had a fall in 2012 and laid on the floor all night. This seems to be when she started the headaches. She does live independent but is having more issues with managing on her own. She is a nonsmoker, no EtOH use, no other drugs. Aids are with her today and want to have neuro psych testing done. Explained not sure if she could handle the testing as it is 4 hours but they feel it needs to be done. They are more concerned that she is not able to live alone and will need increased supervision. She did have an MRI which showed a deviated septum and saw ENT but they can not repair it. It is not clear if she is taking the gabapentin as directed. Her PCP has ordered PT for the dizziness and balance issues. Denies CP, SOB, abdominal pain, N, V. Vision changes. I have reviewed the patient's medications and allergies, past medical, surgical, social and family history, updating these as appropriate. Present Concerns: Pt is a 58-year-old, right-hand dominant, [place] Citizen-speaking, woman with a high school diploma (special education). Pt was accompanied to the appt by Kristine Plata ([facility] nuclear cardiology technologist; has been working with her for 4 years) and Leonor Rodriguez (caregiver; has been working with pt for at least 3 years). Sister, Nataly Terry is the POA. Pt has longstanding moderate intellectual disability and psychiatric issues (bipolar disorder). Pt has a history of aggressiveness, irrationality, paranoia, anger. Pt reportedly has developed increasing cognitive issues over the past couple of years. She has beenforgetting how to do tasks that she has always known how to do (e.g., cleaning, other chores). She loses items more frequently, has increasing of repeating self, has been more forgetful of daily conversations, needs consistent reminders, and has been unable to maintain a calendar with appointments (she used to be able to do this). She has been having increased dizziness and headaches. She had a fall in 2022 and hit head with LOC; she reportedly had a concussion related to this fall and subsequently engaged in physical therapy.She continues with an unsteady gait. Pt described recent mood as off and on. Pt and collaterals feel like pt has depression and anxiety. Pt has had increased unprovoked anger and frustration over the past 1.5 years. Pt denied SI/HI, hallucinations, paranoia, delusions, branden, and apathy. Pt is currently prescribed and taking numerous psychiatric medications; pt receives psychiatric care through [facility]. Pt is not currently in counseling. Sleep is "great." Sleep has been improved with new medication (Caplyta); she was previously waking at times during the night. Pt achieves at least 8 hours of sleep per night. Denied symptoms of insomnia, JASKARAN, and RSBD. Energy is "fine," though indicated this is variable. Appetite is "fine." Pt denied unusual food cravings/eating habits, though does drink a lot of caffeine and sugary drinks. Pt endorsed chronic pain related to neck issues and headaches. Pt denied any acute pain/discomfort today. Pt denied current ETOH use. Pt denied current tobacco use. Pt denied current recreational use of prescription/illict substances. Pt endorsed current excessive caffeine intake: coffee and soda throughout the day. Pt is reportedly independent for all basic ADLs, though there has been reduced hygiene with toileting and perhaps reduced showering. Pt's sister (RUTH) took over finances since July 2023 after it was discovered that pt was overdrawing account; pt was apparently previously balancing checkbook and keeping track of her finances. Pt has an automatic medication dispenser with an alarm reminder; pt's aide fills the pill dispenser. Pt also has video calls so caregivers can watch her take her medications. Pt's aide performs cleaning and chores, though pt helps with times. Pt has never driven. Complications and Developmental Delays: Denied complications. Had some unspecified developmental delays. Educational/Vocational History: History of intellectual disability, possibly related to recurrent high fevers as a young child. Was in special education throughout schooling. Graduated high school. Has had a couple simple jobs throughout her life. Has not worked for at least the past 10-15 years. Service: None. Psychiatric History: History of bipolar disorder and moderate intellectual disability with longstanding treatment. Had at least one voluntary psychiatric hospitalization in the past (in 2006). Substance Use History: Denied. Social History: Born and raised in [place] by both parents. Denied any history of abuse or neglect. Never . No children. Currently living alone with an apartment in [place], [place]. Has an aide with her for 20 hours per week; [facility] is working to increase more around the clock support and is looking into a more supportive living arrangement. Past Medical History (per medical record): Past Medical History: Diagnosis Date Acquired hypothyroidism 03/31/2018 Benign neoplasm of adrenal gland 04/09/2008 7 mm left adrenal mass. Catecholamines and urine cortisol are normal CAH 21-OH (congenital adrenal hyperplasia), late onset (HCC) 03/09/2011 Closed left ankle fracture COVID-19 Depression with anxiety 07/09/2005 Dr Buchanan Gastroparesis Hirsutism 04/09/2008 With elevated Testosterone level Hypopotassemia 06/07/2006 Intellectual disability 01/27/2006 Menopause 07/04/2012 Reflux esophagitis Unspecified intellectual disabilities 01/27/2006 Patient Active Problem List Diagnosis Depression with anxiety Intellectual disability Hypopotassemia BENIGN NEOPLASM ADRENAL- LEFT Hirsutism Gastroesophageal reflux disease without esophagitis CAH 21-OH (congenital adrenal hyperplasia), late onset (HCC) Vitamin D deficiency Menopause Congenital adrenal hyperplasia (HCC) Allergic rhinitis Acquired hypothyroidism Prediabetes Hyperlipidemia LDL goal <100 NAFLD (nonalcoholic fatty liver disease) Pap smear of cervix declined Other schizophrenia (HCC) Bipolar affective disorder in remission (HCC) Had a concussion in 2022. Denied any known history of TBI, TIA, stroke, and seizures. MRI of the brain conducted on 09/01/2023 showed (per radiology read): FINDINGS No acute hemorrhage or infarct. No mass mass effect or midline shift. Ventricles and basal cisternsare normal. Orbits are normal. Paranasal sinuses are. Nasal septal defect anteriorly IMPRESSION No significant intracranial abnormality. Degenerative changes in the upper cervical spine noted. Anterior nasal septal defect Current Outpatient Medications (per medical record): Current Outpatient Medications Medication Sig Dispense Refill buPROPion XL (WELLBUTRIN XL) 300 MG TB24 Take 1 Tablet by mouth in the morning. In the morning.. 0 OLANZapine 5 MG Oral Tablet Take 0.5 Tablets by mouth at bedtime. Tapering off 30 Tab 5 Cholecalciferol (VITAMIN D-3) 1000 units Capsule Take 1 Capsule by mouth in the morning. spironolactone (ALDACTONE) 50 MG Tablet Take 1 Tablet by mouth in the morning and 1 Tablet before bedtime. 180 Tab 3 Prazosin HCl 1 MG Oral Capsule (Minipress) Take 1 Capsule by mouth at bedtime. Ventolin HFA 108 (90 Base) MCG/ACT Inhalation Aerosol Solution inhale 2 puffs by mouth every 4 hours if needed for wheezing 54 g 3 FLUoxetine HCl 10 MG Oral Capsule (PROzac) take 1 tablet by mouth nightly metFORMIN HCl ER 500 MG Oral Tablet Extended Release 24 Hour (Glucophage XR) Take 1 Tablet by mouthin the morning and 1 Tablet before bedtime. 90 Tablet 3 Benztropine Mesylate 0.5 MG Oral Tablet (Cogentin) Furosemide 20 MG Oral Tablet (Lasix) Take 1 Tablet by mouth daily as needed for Other (swelling). 30 Tablet 11 Pantoprazole Sodium 40 MG Oral Tablet Delayed Release (Protonix) Take 1 Tablet by mouth in the morning. 90 Tablet 1 Vitamin B-12 5000 MCG Oral Tablet Disintegrating Take 1 Tablet by mouth in the morning. 90 Tablet 3 Loratadine 10 MG Oral Capsule Take 1 Capsule by mouth in the morning. 90 Capsule 3 Magnesium Oxide 400 MG Oral Tablet TAKE 1 TABLET BY MOUTH EVERY DAY IN THE MORNING 30 Tablet 2 Meclizine HCl 25 MG Oral Tablet (Antivert) Take 1 Tablet by mouth 3 times a day as needed for Dizziness. Er 09/22/23 Riboflavin 400 MG Oral Tablet TAKE 1 TAB BY MOUTH IN THE MORNING. -OTC-. 90 Tablet 1 Caplyta 10.5 MG Oral Capsule TAKE 1 CAPSULE BY MOUTH EVERYDAY AT BEDTIME Gabapentin 100 MG Oral Capsule (Neurontin) TAKE 1 CAPSULE BY MOUTH EVERYDAY AT BEDTIME 30 Capsule 1 No current facility-administered medications for this visit. No longer on Fluoxetine. Now on Caplyta. Family History: Mother had dementia. Denied any other known family history of neurologic or psychiatric problems. Family History Problem Relation Name Age of Onset Arthritis Mother Asthma Mother Thyroid Disorder Mother Diabetes Father Heart Disorder Father 62 Hypertension Father Stroke Father Stroke Grandmother (Maternal) Breast Cancer Grandmother (Maternal) No Past Hx None No FM HX of ACCOUNT SUPPORT MANAGER [place] Mental Status Evaluation/Behavioral Observations: Sensorium: Awake and alert to stimulus with no difficulty maintaining an appropriate level of arousal. Orientation: Oriented to person, place, time, month, day of week. Did not know date. Said it was 1923. Said president was Tj Milner. Appearance: Casually dressed and was appropriate to season and situation. No apparent distress. Grooming, Hygiene: Fair. Behavior: Compliant and cooperative with the evaluation and testing procedures. Pleasant. Socially appropriate. Speech/language: Speech was somewhat slowed with aprosody; volume broadly normal. Receptive and expressive language was broadly WNL, though spontaneous output was limited. Gait/Posture: Ambulated independently. Gait and posture unremarkable on casual observation. Assistive Devices: Hearing and vision were adequate for purposes of testing. Mood: Described as off and on. Affect: Euthymic. Broad in range. Congruent. Motor: Abnormal head/neck movements, likely TD. Thought process/Content/Hallucinations: Limited process, relied heavily on caregiver and caseworkerfor provision of clinical history. No unusual content noted. No hallucinations noted. Safety: Any safety issues, thoughts of harming self or others were denied. CSSRS was negative. Insight: Limited. Procedures: Clinical Interview & Record Review; Wide Range Achievement Test - 4 (WRAT-4: Word Reading); Repeatable Battery for the Assessment of Neuropsychological Status (RBANS A); [place] Adult Intelligence Scale-IV (WAIS- IV: Similarities, Vocabulary, Information, Block Design, Matrix Reasoning, Visual Puzzles, Digit Span, Arithmetic, Symbol Search, Coding) Findings: Test scores are summarized in additional documentation associated with this encounter. Test scores and associated descriptive qualifiers are relative to age, gender and/or education as available and appropriate. It is not necessarily abnormal to have some low scores in the context of multiple measurements. Word reading ability was exceptionally low. Overall general intellectual functioning was found to be in the exceptionally low range (WAIS-IV FSIQ, 95% Confidence Interval). The WAIS-IV Verbal Comprehension Index was exceptionally low. A task assessing vocabulary knowledgewas exceptionally low. A task assessing verbal reasoning was exceptionally low. A task assessing general fund of knowledge was exceptionally low. The WAIS-IV Perceptual Reasoning Index was exceptionally low. Timed visuo- construction requiring the arrangement of red and white blocks to match abstract designs was exceptionally low. Visuo-perceptual/nonverbal reasoning, without a time component, was below average. Timed mental completion of visual puzzles was exceptionally low. The WAIS-IV Working Memory Index was exceptionally low. Composite digit span score was exceptionally low. Mental arithmetic was below average. The WAIS-IV Processing Speed Index was exceptionally low. A timed psychomotor task of visual matching and cognitive efficiency was exceptionally low. Timed number-symbol coding, an indicator of graphomotor speed and selective attention/association learning, was exceptionally low. RBANS Attention: The Attention Index score was exceptionally low. Digit span forward was exceptionally low. A psychomotor symbol-number association task was exceptionally low. RBANS Visuospatial: The Visuospatial Index score was exceptionally low. A figure copy task integrating different details and elements was exceptionally low. Visual analysis and judgment of angular line orientations on another subtest was exceptionally low. RBANS Language: The Language Index score was below average. Semantic fluency (for fruits and vegetables) was exceptionally low, and confrontation picture naming was low average. RBANS Immediate Memory: The Immediate Memory Index score was exceptionally low. List learning over four trials (1, 2, 3, 3/12) was exceptionally low, and learning of a narrated short story across twotrials was exceptionally low. RBANS Delayed Memory: The Delayed Memory Index score was exceptionally low. She recalled 0/10 wordsfrom the list at delayed recall which is exceptionally low. Yes/no recognition of words on the wordlist versus foils was exceptionally low (15/20). Delayed story recall was exceptionally low. Delayed recall for a visuospatial figure copied earlier (as described above) was exceptionally low. RBANS Total: The RBANS Total Scale was exceptionally low. Summary and Conclusions: On formal neuropsychological testing, [...] also exceptionally low. Impression is one of [id number] intellectual disability. Results indicate exceptionally low functioning in each of the broad cognitive domains assessed. These findings would be consistent with the pt's known history of intellectual disability. Given the level of support needed in daily life (as indicated in the history above) and the cognitive test results, it seems that a [id number] level of intellectual disabilty is most appropriate. [...] readily relevant in this case. Diagnostic Impressions: Ysad-mg-Mcegwngh Intellectual Disability Bipolar Disorder (by history) Recommendations: [...] chicken or turkey): Two times a week [place] oil: Use it as your main cooking oil AVOID: Red meat: Less than four services a week Butter and margarine: Less than a tablespoon daily Cheese: Less than one serving a week Pastries and sweets: Less than five servings a week Fried or fast food: Less than one serving a week Thank you for involving me in Ms. Myrick' care. Do not hesitate to contact me should you have any questions regarding the findings and recommendations presented in this report. Polo Martínez, Ph.D., [facility] Neuropsychologist Service Time: [phone] x 60 mins [phone] x 180 mins [id number] x 30 mins [id number] x 150 mins documented in this encounter Plan of Treatment Upcoming Encounters Date Type Department Care Team (Late st Contact Info) Description 03/07/2024 9:00 AM EST Telemedicine Neurology [address] [place] [id number] Cam Mcpherson, DO [address] [facility] [place] [address] Cart, Telemed [facility] [address] [place] [address] 05/18/2024 10:00 AM EST Office Visit Neurology [facility] [address] [place] [address] Yuridia Kendall MD [address] [place] [address] 05/25/2024 2:00 PM EST Office Visit General Internal Medicine [facility] [address] [place] [address] Becky Olson MD [address] [place] [id number] Scheduled Procedures Name Priority Associated Diagnoses Date/Ti me COLONOSCOPY FLEXIBLE PROXIMAL DIAGNOSTIC Recall History of colon polyps Scheduled Referrals Name Type Priority Associated Diagnoses Order Schedule ADULT/PEDS NEUROPSYCHOLOGY REFERRAL OP Referral Within 10 days (routine) Frontal headache NDPH (new daily persistent headache) New onset of headaches after age 50 Ordered: 08/04/2023 Health Maintenance Due Date Last Done Comments [...] (HCC) documented in this encounter Care Teams Tool Engine Lathe Set Up Operator Relationship Specialty Start Date End Date Becky Olson MD [address] [facility] [place] [address] PCP - General Internal Medicine 01/15/21 documented as of this encounter
--- OUTSIDE RECORDS SUMMARY | 2024-01-24 14:51 | External Medical Summary | Summary of Care ---
Author Name Unknown Organization [facility] Address [address] [place] [address] Phone [phone] Care Team Providers Care Wire Bound Box Machine Helper Name Role Phone Becky Olson MD Primary Care Provider [phone] Reason for Referral * Evaluate & Treat - Unlimited Visits (Within 30 days (routine)) - Authorized Specialty Diagnoses / Procedures Referred By Contac t Referred To Contact Physical Therapy / Physical Medicine And Rehab Diagnoses Dizziness Becky Olson MD [address] [place] [address] Referral ID Status Reason Start Date Expiration Date Visits Requested Visits Authorized [id number] Authorized Specialty Services Required 11/22/2023 999 999 Question Answer Referral Priority Within 30 days (routine) Where should this appointment be scheduled? [facility] Comments Vertigo Reason for Visit * Reason Comments Physical-Exam Encounter Details Date Type Department Care Team (Latest Contact Info) Description 11/22/2023 10:20 AM EDT Office Visit General Internal Medicine [facility] [place] [address] [place] [address] Becky Olson MD [address] [place] [id number] Routine medical exam*; Bipolar affective disorder in remission (HCC); Hypopotassemia; CAH 21-OH (congenital adrenal hyperplasia), late onset (HCC); Congenital adrenal hyperplasia (HCC); Depression with anxiety; Gastroesophageal reflux disease without esophagitis; Hirsutism; Hyperlipidemia LDL goal <100; NAFLD (nonalcoholic fatty liver disease); Acquired hypothyroidism; Dizziness; Impaired fasting glucose; Low TSH level; Loss of weight; Imbalance; Prediabetes; Pap smear of cervix declined; Vitamin D deficiency; Other schizophrenia (HCC); Seasonal allergic rhinitis, unspecified trigger; Memory loss Allergies Active Allergy Reactions Criticality Noted Date [...] AT BEDTIME 30 Capsule 1 11/15/2023 Active Furosemide 20 MG Oral Tablet (Lasix)Indication s:Bilateral leg edema Take 1 Tablet by mouth daily as needed for Other (swelling). 30 Tablet 11 11/02/2022 11/22/2023 Discontinued (Patient preference/d iscontinuati on) documented as of this encounter (statuses as [...] mRNA, LNP-s, No Pre serve, 2-Dose Series (Xinrong) 03/13/2021,07/11/2020,06/20/2020 Hepatitis B, 20+ yrs 01/08/2022,09/08/2021,03/13 PPD [...] on file documented as of this encounter Last Filed Vital Signs Vital Sign Reading Time Taken Comments Blood Pressure 128/88 11/22/2023 10:14 AM EDT Pulse 114 11/22/2023 10:14 AM EDT Temperature 36.9 C (98.4 F) 11/22/2023 1 0:14 AM EDT Respiratory Rate 16 11/22/2023 10:1 4 AM EDT Oxygen Saturation 96% 11/22/2023 10: 14 AM EDT Inhaled Oxygen Concentration - - Weight 75.2 kg (165 lb 11.2 oz) 024 10:14 AM EDT Height 158.1 cm (5' 2.25") 11/22/2023 1 0:14 AM EDT Body Mass Index 30.06 11/22/2023 10:14 AM EDT documented in this encounter Progress Notes * Becky Olson MD - 11/22/2023 10:16 AM EDT SUBJECTIVE: Yessy Myrick is a 57 year old female. Chief Complaint Patient presents with Physical-Exam HPI: 57 year old female with a history of Intellectual Disability, HTN, Allergic Rhinitis, Prediabetes, Adrenal Hyperplasia, GERD, Irritable Bowel, and chronic abdominal pain presents here for complete physical and form with adult protective caseworker. Since last seen she has been feeling overall ok Acute issue or concern: -weight loss and low appetite. She had CT of the head because of headache and also MRI brain -has had intermittent dizziness but more often than not where she clearly says feels like room spinning and particularly with neck movement or unknown trigger. Meanwhile was not ER due to it and seenby ENT who found she had ruptured nasal septum and there is nothing can be done. Has some sinus congestion drainage and not sure if she is taking Claritin -caregiver who brought patient today did not have exact medication list Interim other medical issue : None Fam h/o CAD, DM,PVD,stroke: Dad with heart disease and DM and MGM with stroke Significant fam h/o cancer: no Watching diet : Trying to watch Doing regular exercise: Walking some Routine labs: Due Routine HM: Reviewed, discussed and recommended, patient agreed except pap , getting booster soon Being followed by Derm: no Being followed by any other specialist: neuro Other chronic medical problem: Reviewed and stable Patient Active Problem List Diagnosis Depression with [...] (HCC) Bipolar affective disorder in remission (HCC) Current Outpatient Medications Medication Sig Dispense Refill [...] (PROzac) take 1 tablet by mouth nightly Benztropine Mesylate 0.5 MG Oral Tablet (Cogentin) Pantoprazole Sodium 40 MG Oral Tablet Delayed [...] MOUTH EVERYDAY AT BEDTIME 30 Capsule 1 metFORMIN HCl ER 500 MG Oral Tablet Extended Release 24 Hour (Glucophage XR) Take 1 Tablet by mouthin the morning and 1 Tablet before bedtime. 90 Tablet 3 No current facility-administered medications for this visit. The patient's medication list was reviewed and updated as needed. Past Medical History: Diagnosis Date Acquired hypothyroidism [...] 07/04/2012 Reflux esophagitis Unspecified intellectual disabilities 01/27/2006 Social History Socioeconomic History Marital status: Single Occupational History Occupation: Disabled Tobacco Use Smoking status: Never Smokeless tobacco: Never Vaping Use Vaping status: Never Used Substance and Sexual Activity Alcohol use: No Drug use: No Sexual activity: Not Currently Other Topics Concern Blood Transfusions No Caffeine Concern Yes Comment: 2 -3 soda/day Special Diet No Seat Belt Yes Social History Narrative Lives independently Social Determinants of Health Food Insecurity: No Food Insecurity (04/10/2022) Hunger Vital Sign Worried About Running Out of Food in the Last Year: Never true Ran Out of Food in the Last Year: Never true Social Connections Review of patient's allergies indicates: Allergen Reactions No Known Drug Allergy Family History Problem Relation Name Age of Onset Arthritis Mother Asthma Mother Thyroid Disorder Mother Diabetes Father Heart Disorder Father 62 Hypertension Father Stroke Father Stroke Grandmother (Maternal) Breast Cancer Grandmother (Maternal) No Past Hx None No FM HX of [employer] [place] Family Status Relation Status Fa at age 60 heart attack Mo Alive Sis Alive Sis Alive Bro Alive NONE (Not Specified) MGMA (Not Specified) REVIEW OF SYSTEMS: All 10 systems reviewed and negative except mentioned in HPI OBJECTIVE: BP 128/88 (BP Site: Left Arm, BP Position: Sitting, BP Cuff Size: Regular) | Pulse 114 | Temp 36.9 C (98.4 F) (Tympanic) | Resp 16 | Ht 1.581 m (5' 2.25") | Wt 75.2 kg (165 lb 11.2 oz) | LMP 05/27/2006 | SpO2 96% | BMI 30.06 kg/m | BSA 1.82 m PHYSICAL EXAM: General: alert, healthy and no distress Head: Normocephalic, No masses, lesions, tenderness or abnormalities Eye Exam: PERRLA, EOMI, Conjunctiva are pink and non-injected, sclera clear Ears: External ears normal, Canals clear, TM's Normal Oropharynx: no exudate, no erythema, lips, buccal mucosa, and tongue normal and mucous membranes are moist Neck: supple, no adenopathy, no bruits, thyroid normal size, non-tender, without nodularity Lymph: no palpable lymphadenopathy Heart: regular rate & rhythm, no murmurs and no gallops Lungs: chest symmetric with normal AP diameter, no chest deformities noted, no chest wall tenderness, lungs clear to auscultation Pulses: carotid=2/4 w/o bruits Abdomen: abdomen soft, non-tender, normal bowel sounds and no masses or organomegaly Back: back symmetric, no curvature, no costovertebral angle tenderness, range of motion is normal Extremities: less than 2 second capillary refill, no joint deformities, effusion, or inflammation, right wrist slightly tender and questionable puffy ASSESSMENT AND PLAN Routine medical exam (Primary) Routine preventive care discussed like - 1.Taking 2-3 serving of dairy product/day, if can't tolerate should take OTC calcium/vit D ( 600 mg/400 IU) twice a day 2.Healthy diet with low carb,low fat and high in fruits and vegetables discussed 3.Regular exercise at least 3/week of 30 min each 4.Wearing suncreen regularly to prevent skin cancer 5.Self breast exam monthly 6.Routine screening tests and vaccines discussed and recommended Bipolar affective disorder in remission (HCC) Hypopotassemia CAH 21-OH (congenital adrenal hyperplasia), late onset (HCC) Continue spironolactone Congenital adrenal hyperplasia (HCC) Depression with anxiety Gastroesophageal reflux disease without esophagitis Stable Continue current treatment as directed Hirsutism Hyperlipidemia LDL goal <100 - COMPREHENSIVE METABOLIC PANEL; Future; Expected date: 11/22/2023 - LIPID PANEL WITH DIRECT LDL IF TG IS HIGH; Future; Expected date: 11/22/2023 NAFLD (nonalcoholic fatty liver disease) Acquired hypothyroidism Dizziness Make sure to take Claritin If needed can add Flonase - VITAMIN B12; Future; Expected date: 11/22/2023 - FOLIC ACID; Future; Expected date: 11/22/2023 - PHYSICAL THERAPY REFERRAL OP Impaired fasting glucose - HEMOGLOBIN A1C; Future; Expected date: 11/22/2023 Loss of weight - TSH; Future; Expected date: 11/22/2023 - T4, FREE; Future; Expected date: 11/22/2023 Imbalance - VITAMIN B12; Future; Expected date: 11/22/2023 - FOLIC ACID; Future; Expected date: 11/22/2023 - CBC; Future; Expected date: 11/22/2023 Prediabetes Depending on blood work will stop metformin which might help with weight loss too Pap smear of cervix declined Vitamin D deficiency Other schizophrenia (HCC) Seasonal allergic rhinitis, unspecified trigger Memory loss Follow Up: Return in about 6 months (around 05/24/2024). Due to her nursing disability and living independently it would be helpful to have visiting nurse go when check her home safety. Also for education to make sure she takes medication every day and help with bubble pack system Treatment and plan discussed with patient and was given opportunity to ask questions which were answered . Patient verbalized understanding. This note was prepared with the help of fluency and if there is any mis-spelled words , sentences or something which doesn't represent the content of the subject that could be technical error and please refer to the author for clarification. Becky Olson MD 11/22/2023 10:17 AM documented in this encounter Nursing Notes * Perla Douglas MED ASSIST - 11/22/2023 10:14 AM EDT Yessy Myrick presents for annual physical exam. She provides a medical examination form today. She states that she is no longer taking lasix. She states that neurology would like a referral to [place]. Medications & HM reviewed. documented in this encounter Plan of Treatment Upcoming Encounters Date Type Department Care Team (Late st Contact Info) Description 12/08/2023 9:00 AM EDT Imaging Radiology [facility] 1st Floor, [place] [address] [facility] [place] [address] 12/15/2023 10:00 AM EDT Therapy Neuropsychology [facility] [place] [address] [facility] [place] [address] Polo Martínez, PhD [address] [facility] [place] [address] 05/18/2024 10:00 AM EST Office Visit Neurology [facility] [address] [facility] [place] [address] Yuridia Kendall MD [address] [facility] [place] [address] 05/25/2024 2:00 PM EST Office Visit General Internal Medicine [facility] [address] [facility] [place] [address] Becky Olson MD [address] [facility] [place], [place] [address] Pending Results Name Type Priority Associated Diagnoses Date /Time TSH Lab Routine Loss of weight 11/22/2023 [...] Dizziness Imbalance 11/22/2023 11:01 AM EDT Scheduled Orders Name Type Priority Associated Diagnoses Orde r Schedule TSH Lab Routine Loss of weight Expected: 11/22/2023 (Approximate), Expires: 11/21/2024 T4, FREE Lab Routine Loss of weight Expected: 11/22/2023 (Approximate), Expires: 11/21/2024 LIPID PANEL WITH DIRECT LDL IF TG IS HIGH Lab Routine Hyperlipidemia LDL goal <100 Expected: 11/22/2023, Expires: 11/21/2024 HEMOGLOBIN A1C Lab Routine Impaired fasting glucose Expected: 11/22/2023 (Approximate), Expires: 11/21/2024 VITAMIN B12 Lab Routine Dizziness Imbalance Expected: 11/22/2023 (Approximate), Expires: 11/21/2024 FOLIC ACID Lab Routine Dizziness Imbalance Expected: 11/22/2023 (Approximate), Expires: 11/21/2024 Scheduled Procedures Name Priority Associated Diagnoses Date/Ti me COLONOSCOPY FLEXIBLE PROXIMAL DIAGNOSTIC Recall History of colon polyps Scheduled Referrals Name Type Priority Associated Diagnoses Orde r Schedule PHYSICAL THERAPY REFERRAL OP Referral Within 30 days (routine) Dizziness Ordered: 11/22/2023 Health Maintenance Due Date Last Done Comments [...] Not on filedocumented as of this encounter Results * CBC (11/22/2023 11:01 AM EDT) WBC 6.18 4.00 - 10.80 K/uL 11/22/2023 11:11 AM EDT [place] [address] RBC 4.37 3.85 - 5.15 M/uL 11/22/2023 11:11 AM EDT [place] [address] HGB 12.9 12.0 - 15.3 g/dL 11/22/2023 11:11 AM EDT [address] HCT 40.0 36.0 - 45.2 % 11/22/2023 11:11 AM EDT [address] MCV 91.5 81.5 - 97.5 fL 11/22/2023 11:11 AM EDT [place] [address] MCH 29.5 27.0 - 34.0 pg 11/22/2023 11:11 AM EDT [address] MCHC 32.3 32.0 - 36.0 g/dL 11/22/2023 11:11 AM EDT [address] RDW 13.3 11.5 - 15.5 % 11/22/2023 11:11 AM EDT [address] PLT 241 140 - 400 K/uL 11/22/2023 11:11 AM EDT [facility] 56 MPV 9.8 6.6 - 11.1 fL 11/22/2023 11:11 AM T [facility] 56 Blood Venous blood specimen / Unknown Venipuncture / Unknown 11/22/2023 11:01 AM EDT 11/22/2023 11:01 AM EDT Becky Olson MD LAB BLOOD ORDERABLES [place] [address] [address] [place] [address] * (ABNORMAL) COMPREHENSIVE METABOLIC PANEL (11/22/2023 11:01 AM EDT) BUN 18 6 - 20 mg/dL 11/22/2023 12:15 PM EDT [address] Creatinine 1.0 0.5 - 1.0 mg/dL 11/22/2023 12:15 PM EDT [address] Estimated Glomerular Filtration Rate 62 >=60 mL/min 11/22/2023 12:15 PM EDT [address] Comment:eGFR is calculated b ased on the CKD-EPI 2020 equation. Sodium 140 135 - 146 mmol/L 11/22/2023 12:15 PM EDT [address] Potassium 4.8 3.5 - 5.1 mmol/L 11/22/2023 12:15 PM EDT [address] Chloride 105 98 - 107 mmol/L 11/22/2023 12:15 PM EDT [address] CO2 21(L) 22 - 32 mmol/L 11/22/2023 12:15 PM EDT [address] Anion Gap 14 7 - 15 mmol/L 11/22/2023 12:15 PM EDT [address] Glucose 91 70 - 120 mg/dL 11/22/2023 12:15 PM EDT [address] Albumin 4.4 3.8 - 5.0 g/dL 11/22/2023 12:15 PM EDT [address] AST 15 10 - 35 U/L 11/22/2023 12:15 PM EDT [address] Alkaline Phosphatase 113 35 - 130 U/L 11/22/2023 12:15 PM EDT [address] Bilirubin, Total 0.2 <=1.2 mg/dL 11/22/2023 12:15 PM EDT [address] Calcium 9.9 8.4 - 10.2 mg/dL 11/22/2023 12:15 PM EDT [address] Protein 6.6 6.0 - 8.3 g/dL 11/22/2023 12:15 PM EDT [address] ALT 15 10 - 35 U/L 11/22/2023 12:15 PM EDT [facility] 56 Blood Venous blood specimen / Unknown Venipuncture / Unknown 11/22/2023 11:01 AM EDT 11/22/2023 11:01 AM EDT Becky Olson MD LAB BLOOD ORDERABLES Performing Organization Address City/State/[facility] Co de Phone Number [facility] [address] [place] [address] documented in this encounter Visit Diagnoses Diagnosis Routine medical exam- Primary Routine general medical examination at a health care facility Bipolar affective disorder in remission (HCC) Hypopotassemia CAH 21-OH (congenital adrenal hyperplasia), late onset (HCC) Adrenogenital disorders Congenital adrenal hyperplasia (HCC) Adrenogenital disorders Depression with anxiety Dysthymic disorder Gastroesophageal reflux disease without esophagitis Esophageal reflux Hirsutism Hyperlipidemia LDL goal <100 Other and unspecified hyperlipidemia NAFLD (nonalcoholic fatty liver disease) Other chronic nonalcoholic liver disease Acquired hypothyroidism Unspecified hypothyroidism Dizziness Dizziness and giddiness Impaired fasting glucose Low TSH level Nonspecific abnormal results of thyroid function study Loss of weight Imbalance Abnormality of gait Prediabetes Other abnormal glucose Pap smear of cervix declined Surgical or other procedure not carried out because of patient's decision Vitamin D deficiency Unspecified vitamin D deficiency Other schizophrenia (HCC) Seasonal allergic rhinitis, unspecified trigger Memory loss documented in this encounter Care Teams Wire Bound Box Machine Helper Relationship Specialty Start Date End Date [facility] [address] [facility] [address] PCP - General Internal Medicine 01/15/21 documented as of this encounter
--- OUTSIDE RECORDS SUMMARY | 2024-01-24 14:52 | External Medical Summary | Summary of Care ---
Author Name Unknown Organization [facility] Address [address] [place] [place] [address] Phone [phone] Care Team Providers Care Ui Developer Designer Name Role Phone Becky Olson MD Primary Care Provider [phone] Reason for Visit * Reason Comments Return Neuro Headache Dizziness Memory Loss Encounter Details Date Type Department Care Team (Late st Contact Info) Description 11/08/2023 9:20 AM EDT Office Visit Neurology [place] [address] [facility] [place] [address] Yuridia Rasmussen PA-C [address] [facility] [place] [address] New onset of headaches after age 49*; Memory loss Allergies Active Allergy Reactions Criticality Noted Date Comments No Known Drug Allergy 04/09/2008 documented as of this encounter (statuses as of 11/08/2023) Medications Medication Sig Dispensed Refills Start Date [...] 0.5 MG Oral Tablet (Cogentin) 10/12/2022 Active Furosemide 20 MG Oral Tablet (Lasix)Indications:B ilateral leg edema Take 1 Tablet by mouth daily as needed for Other (swelling). 30 Tablet 11 11/02/2022 Active Pantoprazole Sodium 40 MG Oral Tablet [...] the morning. 90 Capsule 3 06/17/2023 Active Gabapentin 100 MG Oral Capsule (Neurontin)Indicatio ns:Frontal headache TAKE 1 CAPSULE BY MOUTH EVERYDAY AT BEDTIME 30 Capsule 1 08/26/2023 Active Magnesium Oxide 400 MG Oral TabletIndications:Fr [...] BY MOUTH EVERYDAY AT BEDTIME 11/04/2023 Active documented as of this encounter (statuses as of 11/08/2023) Active Problems Problem Noted Date Diagnosed Date [...] as of this encounter (statuses as of 11/08/2023) Resolved Problems Problem Noted Date Diagnosed Date [...] 07/09/2005 1 04/05/2010 Overview: Dr ramires at [facility]. HTN, goal to be determined 1 04/20/2008 Overview: Modified per HTN protocol #16. Reflux esophagitis 1 documented as of this encounter (statuses as of 11/08/2023) Immunizations Name Administration Dates Next Due COVID-19 mRNA, LNP-s, No Pre serve, 2-Dose Series ([employer]) 03/13/2021,07/11/2020,06/20/2020 Hepatitis B, 20+ yrs 01/08/2022,09/08/2021,03/13 PPD [...] Sign Reading Time Taken Comments Blood Pressure 128/76 11/08/2023 9:10 AM EDT Pulse 91 11/08/2023 9:10 AM EDT Temperature 36.6 C (97.9 F) 11/08/2023 9:10 AM ED T Respiratory Rate 16 11/08/2023 9:10 AM EDT Oxygen Saturation 96% 11/08/2023 9:10 AM EDT Inhaled Oxygen Concentration - - Weight 77.2 kg (170 lb 3.2 oz) 11/08/2023 9:10 A M EDT Height - - Body Mass Index 30.61 11/01/2023 7:56 AM EDT documented in this encounter Progress Notes * Yuridia Rasmussen PA-C - 11/08/2023 9:04 AM EDT HISTORY & PHYSICAL EXAMINATION - NEUROLOGY Name: Yessy Myrick Date: 11/08/2023 Time: 9:04 AM Referring Provider: Self Chief Complaint: Chief Complaint Patient presents with Return Neuro Headache Dizziness Memory Loss This is a 57 year old right handed woman returns today for follow up for headache, memory issue. HPI & Source of HPI The aids [...] and family history, updating these as appropriate. See Histories section of the electronic medical record for adisplay of this information. Patient Active Problem List Diagnosis Depression with [...] (HCC) Bipolar affective disorder in remission (HCC) Family History Problem Relation Name Age of Onset Arthritis Mother Asthma Mother Thyroid Disorder Mother Diabetes Father Heart Disorder Father 62 Hypertension Father Stroke Father Stroke Grandmother (Maternal) Breast Cancer Grandmother (Maternal) No Past Hx None No FM HX of [employer] [place] Medications: Are you taking your medications? yes Current Outpatient Medications Medication Sig Dispense Refill Caplyta 10.5 MG Oral Capsule TAKE 1 CAPSULE BY MOUTH EVERYDAY AT BEDTIME buPROPion XL (WELLBUTRIN XL) 300 MG TB24 [...] mouth in the morning. 90 Capsule 3 Gabapentin 100 MG Oral Capsule (Neurontin) TAKE 1 CAPSULE BY MOUTH EVERYDAY AT BEDTIME 30 Capsule 1 Magnesium Oxide 400 MG Oral Tablet TAKE 1 TABLET BY MOUTH EVERY DAY IN THE MORNING 30 Tablet 2 Meclizine HCl 25 MG Oral Tablet (Antivert) Take 1 Tablet by mouth 3 times a day as needed for Dizziness. Er 09/22/23 Riboflavin 400 MG Oral Tablet TAKE 1 TAB BY MOUTH IN THE MORNING. -OTC-. 90 Tablet 1 No current facility-administered medications for this visit. Review of patient's allergies indicates: Allergen Reactions No Known Drug Allergy Review of Systems: A total number of 10 systems were reviewed pertinent negative and positives not addressed in HPI are listed in the following review. Physical Exam: Constitutional: BP 128/76 | Pulse 91 | Temp 36.6 C (97.9 F) (Tympanic) | Resp 16 | Wt 77.2 kg (170 lb 3.2 oz) | LMP 05/27/2006 | SpO2 96% | BMI 30.61 kg/m | BSA 1.85 m , appearance over nourished and healthy, dyskinesia Ears, Nose, Mouth and Throat: mucous membranes moist, no injection and skin normal, eyes normal Cardiovascular: normal S-1 and S-2 and regular rate and rhythm Respiratory: clear to auscultation (CTA) and no rales, ronchi or wheeze Musculoskeletal: no peripheral edema Skin: normal and intact Eyes: extraocular muscles intact (EOMI) NEUROLOGIC EXAMINATION: Mental status: Alert and interactive Oriented to full date and location Oriented to person Speech answers questions appropriately Cranial Nerves Normal findings for Cranial Nerves II - XII Gait/Stance: Posture abnormal: forward head and rounded shoulders. Gait using cane, tandem steady gait Motor: Negative for abnormal muscle bulk and abnormal muscle tone. Strength: generalized weakness, deconditioned, and uses arms of chair to stand up LABORATORY: Recent labs reviewed Review of prior Studies: MRI brain-No significant intracranial abnormality. Degenerative changes in the upper cervical spinenoted. Anterior nasal septal defect Impression: Yessy Myrick is a 57 year old woman with a history of dizziness, headache. Her neurologic examination today reveals no new focal deficit. The history and examination are suggestive of diagnosis/problem list. Testing and Referrals ordered: none ICD-10-CM 1. New onset of headaches after age 50 R51.9 2. 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 Medical Decision Making (determined by lowest of 2 of 3 elements): The medical decision making element of the number and complexity of problems addressed included at least 1 or more chronic illnesses with exacerbation, progression, or side effects of treatment (level 4). The medical decision making element of risk of complications, morbidity, and mortality of patient management is moderate (level 4) due to prescription drug management (moderate risk). The medical decision making element of the amount and complexity of data reviewed and analyzed included an independent interpretation of a test (level 4 at least). When 2 of 3 reach level 4, then this element is considered extensive (level 5). I personally spent a total of 30 minutes. This time was for a new office or established visit and was on the same calendar day. Education / Consultation - Topics covered as I spent 20 minutes, which is greater than 50% of this visit, counseling the patient on: Diagnostic Results Prognosis Importance of compliance with chosen treatment options Risk factor reductions Patient and family education Consulted with physician: Juan Ramon Shannon MD was available for direct supervision. Copy of note sent toPCP and Referring Provider. Total time of visit: 30 minutes. Yuridia Rasmussen PA-C Neurology [facility] [address] [place] [address] 11/08/2023 9:04 AM documented in this encounter Nursing Notes * Shruti Escobedo MED ASSIST - 11/08/2023 9:08 AM EDT Chief Complaint Patient presents with Return Neuro Headache Dizziness Memory Loss documented in this encounter Plan of Treatment Upcoming Encounters Date Type Department Care Team (Late st Contact Info) Description 11/10/2023 8:00 AM EDT Office Visit General Internal Medicine [facility] [address] [place] [address] Dorinda Bustillos PA-C [address] [place] [address] 11/22/2023 10:20 AM EDT Office Visit General Internal Medicine [facility] [address] [place] [address] Becky Olson MD [address] [facility] [place] [address] 12/08/2023 9:00 AM EDT Imaging Radiology [address], [place] [address] [facility] [place] [address] 05/18/2024 10:00 AM EST Office Visit Neurology [place] [address] [facility] [place] [address] Yuridia Kendall MD [address] [facility] [place] [address] Scheduled Procedures Name Priority Associated Diagnoses Date/Ti me COLONOSCOPY FLEXIBLE PROXIMAL DIAGNOSTIC Recall History of colon polyps Health Maintenance Due Date Last Done Comments HIV Screening 12/08/1979 HPV/Co-Test 1994 Cologuard 2009 Fecal Occult Blood Test 2009 Sigmoidoscopy 2009 Zoster Vaccines (1 of 2) 2014 Cervical Cancer Screening 07/16/2017 Pap Smear 07/16/2017 07/16/2014, 04/29, 05/12/2011, Additional history exists COVID-19 Vaccine ( season) 2022 03/13/2021, 07/11/2020, 06/20/2020 Influenza Vaccine (FLU shot) (#1) 2023 05/14/2023, 05/14/2022, 01/20/2021, Additional history exists Mammogram 12/03/2023 12/02/2022, 09/0 08/2022, 08/20/2021, Additional history exists B-12 05/14/2024 05/14/2023, 09/0 08/2022, 07/27/2022, Additional [...] as of this encounter Visit Diagnoses Diagnosis New onset of headaches after age 50- Primary Headache Memory loss documented in this encounter Care Teams Ui Developer Designer Relationship Specialty Start Date End Date Becky Olson MD [address] [place] [id number] PCP - General Internal Medicine 01/15/21 documented as of this encounter"
--- OUTSIDE RECORDS SUMMARY | 2024-01-24 14:52 | External Medical Summary | Summary of Care ---
Author Name Unknown Organization [facility] Address [address] [place] [address] Phone [phone] Care Team Providers Care Gauge And Instrument Inspector Name Role Phone Becky Olson MD Primary Care Provider Reason for Visit * Reason Comments eRx-Medication Refill Encounter Details Date Type Department Care Team (Late st Contact Info) Description 11/11/2023 Refill General Internal Medicine [facility] [address] [facility] [place] [address] Becky Olson MD 200 [facility] [place] [address] Frontal headache Allergies Active Allergy Reactions Criticality Noted Date Comments No Known Drug Allergy 04/09/2008 documented as of this encounter (statuses as of 11/15/2023) Medications Medication Sig Dispensed Refills Start Date [...] 10/12/2022 Active Furosemide 20 MG Oral Tablet (Lasix)Indication [...] AT BEDTIME 30 Capsule 1 11/15/2023 Active Gabapentin 100 MG Oral Capsule (Neurontin)Indica tions:Frontal headache TAKE 1 CAPSULE BY MOUTH EVERYDAY AT BEDTIME 30 Capsule 1 08/26/2023 4 Discontinued documented as of this encounter (statuses as of 11/15/2023) Active Problems Problem Noted Date Diagnosed Date [...] as of this encounter (statuses as of 11/15/2023) Resolved Problems Problem Noted Date Diagnosed Date [...] 07/09/2005 1 04/05/2010 [facility]: [facility]. HTN, goal to be determined 1 04/20/2008 Overview: Modified per HTN protocol #16. Reflux esophagitis 1 documented as of this encounter (statuses as of 11/15/2023) Immunizations Name Administration Dates Next Due COVID-19 mRNA, LNP-s, No Pre serve, 2-Dose Series ([employer]) 03/13/2021,07/11/2020,06/20/2020 Hepatitis B, 20+ yrs 01/08/2022,09/08/2021,03/13 PPD [...] encounter Miscellaneous Notes * Telephone Encounter - Trish Prather MD - 11/15/2023 3:19 PM EDTSigned Prescriptions: Disp Refills Gabapentin 100 MG Oral Capsule (Neurontin) 30 Cap*1 Sig: TAKE 1 CAPSULE BY MOUTH EVERYDAY AT BEDTIME Authorizing Provider: TRISH PRATHER * Telephone Encounter - Elfego, E-Rx Ss Inbound - 11/15/2023 12:42 PM EDT Pending Prescriptions: Disp Refills Gabapentin 100 MG Oral Capsule [Pharmacy M*30 Cap*1 Sig: TAKE 1 CAPSULE BY MOUTH EVERYDAY AT BEDTIME * Telephone Encounter - Melissa Douglas CMA - 11/15/2023 9:58 AM EDTPending Prescriptions: Disp Refills Gabapentin 100 MG Oral Capsule [Pharmacy M*30 Cap*1 Sig: TAKE 1 CAPSULE BY MOUTH EVERYDAY AT BEDTIME * Telephone Encounter - Melissa Douglas CMA - 11/15/2023 9:57 AM EDT Did you pend patient's preferred pharmacy and medication before forwarding?yes Pharmacy: [id number] Pending Prescriptions: Disp Refills Gabapentin 100 MG Oral Capsule (Neurontin*30 Cap*1 Sig: TAKE 1 CAPSULE BY MOUTH EVERYDAY AT BEDTIME Last Visit: 09/29/2023 (in office), Visit date not found (telemedicine) Next Visit: 11/19/2023 If no future appointments scheduled, and last appointment is greater than a year ago, please schedule patient for a follow-up appointment Last date the medication was ordered: 08/26/23 Urine Drug Screen:No results found. However, due to the size of the patient record, not all encounters were searched. Please check Results Review for a complete set of results. Patient Phone Numbers Labs: Lab Results Component Value Date/Time CREAT 0.98 09/22/2023 12:00 AM CREAT 0.8 04/16/2020 12:43 PM POTASSIUM 4.1 09/22/2023 12:00 AM POTASSIUM 4.3 04/16/2020 12:43 PM TSH 3.27 07/28/2023 11:51 AM TSH 1.37 05/17/2020 12:00 AM TSH 1.82 01/23/2020 02:39 PM LDLCALC 86 10/14/2022 09:10 AM LDLCALC 102 (A) 05/17/2020 12:00 AM LDLCALC 95 12/08/2019 09:36 AM LDLDIRECT 128 05/15/2022 01:15 PM LDLDIRECT 82 11/06/2019 10:40 AM LDLDIRECT 58 03/05/2010 11:36 AM ALT 15 05/14/2023 01:18 PM ALT 111 (H) 04/05/2020 10:14 AM HGBA1C 5.7 (H) 07/28/2023 11:51 AM HGBA1C 5.7 05/17/2020 12:00 AM HGBA1C 6.4 (H) 12/08/2019 09:36 AM * Telephone Encounter - Hung Batista - 11/11/2023 1:42 PM EDTPending Prescriptions: Disp Refills Gabapentin 100 MG Oral Capsule [Pharmacy M*30 Cap*1 Sig: TAKE 1CAPSULE BY MOUTH EVERYDAY AT BEDTIME documented in this encounter Plan of Treatment Upcoming Encounters Date Type Department Care Team (Late st Contact Info) Description 11/17/2023 8:30 AM EDT Therapy [facility] [place] [address] [employer], [place] [address] Polo Martínez, PhD [address] [facility] [place], [place] [address] 11/19/2023 8:00 AM EDT Office Visit General Internal Medicine [place] [address] [place] [address] Dorinda Bustillos PA-C [address] [place] [address] 11/22/2023 10:20 AM EDT Office Visit General Internal Medicine [facility] [address] [place] [address] Becky Olson MD [address] [place] [address] 12/08/2023 9:00 AM EDT Imaging Radiology [address] [facility] [place] [address] 05/18/2024 10:00 AM EST Office Visit Neurology [facility] [address] [place] [address] Yuridia Kendall MD [address] [place] [address] Scheduled Procedures Name Priority Associated Diagnoses Date/Ti [...] 12/03/2023 12/02/2022, 08/2022, 08/20/2021, Additional history exists B-12 05/14/2024 05/14/2023, 08/2022, 07/27/2022, Additional history exists HbA1c 07/27/2024 07/28/2023, 08/2022, 10/14/2022, Additional history exists Depression Monitoring [...] Headache documented in this encounter Care Teams Gauge And Instrument Inspector Relationship Specialty Start Date End Date Becky Olson MD 200 [place] [address] PCP - General Internal Medicine 01/15/21 documented as of this encounter
--- OUTSIDE RECORDS SUMMARY | 2024-01-24 14:52 | External Medical Summary | Summary of Care ---
Author Name Unknown Organization [facility] Address [address] [place] [facility] [place] [place] [address] Phone [phone] Care Team Providers Care Combatant Swimmer Name Role Phone Becky Olson MD Primary Care Provider [phone] Reason for Visit * Reason Onset Date Comments Appointment 11/08/2023 Neuropsychology Encounter Details Date Type Department Care Team (Late st Contact Info) Description 11/08/2023 Telephone Neurology [facility] [place] [address] [place] [address] Yuridia Rasmussen PA-C [address] [place] [address] Appointment (Neuropsychology) Allergies Active Allergy Reactions Criticality Noted Date [...] 07/09/2005 1 04/05/2010 Overview: [facility] ramires [facility]. HTN, goal to be determined 1 04/20/2008 Overview: Modified per HTN protocol #16. Reflux esophagitis 1 documented as of this encounter (statuses as of 11/08/2023) Immunizations Name Administration Dates Next Due COVID-19 mRNA, LNP-s, No Pre serve, 2-Dose Series ([employer]) 03/13/2021,07/11/2020,06/20/2020 Hepatitis B, 20+ yrs 01/08/2022,09/08/2021,03/13 PPD [...] encounter Miscellaneous Notes * Telephone Encounter - Justine Izquierdo OSA - 11/08/2023 9:33 AM EDT Pt has updated phone numbers now. Please call pt to schedule documented in this encounter Plan of Treatment Upcoming Encounters Date Type Department Care Team (Late st Contact Info) Description 11/10/2023 8:00 AM EDT Office Visit General Internal Medicine [facility] [address] [place] [address] Dorinda Bustillos PA-C [address] [place] [address] 11/22/2023 10:20 AM EDT Office Visit General Internal Medicine [facility] [place] [address] [place] [address] Becky Olson MD [address] [place] [address] 12/08/2023 9:00 AM EDT Imaging Radiology [address], [place] 132 [facility] [place] [address] 05/18/2024 10:00 AM EST Office Visit Neurology [facility] [address] [place] [address] Yuridia Kendall MD 200 [facility] [place] [address] Scheduled Procedures Name Priority Associated Diagnoses Date/Ti [...] filedocumented as of this encounter Care Teams Combatant Swimmer Relationship Specialty Start Date End Date Becky Olson MD 200 [facility] [place] [address] PCP - General Internal Medicine 01/15/21 documented as of this encounter
--- OUTSIDE RECORDS SUMMARY | 2024-01-24 14:52 | External Medical Summary | Summary of Care ---
Author Name Unknown Organization [facility] Address [address] [place] [facility] [place] [address] Phone [phone] Care Team Providers Care Machine Turner Name Role Phone Becky Olson MD Primary Care Provider [phone] Reason for Visit * Reason Onset Date Comments Appointment 11/08/2023 Neuropsychology Encounter Details Date Type Department Care Team (Late st Contact Info) Description 11/08/2023 Telephone Neurology [facility] [place] [address] [place] [address] Yuridia Rasmussen PA-C [address] [place] [address] Appointment (Neuropsychology) Allergies Active Allergy Reactions Criticality [...] 07/09/2005 1 04/05/2010 Overview: Dr ramires at [facility]. HTN, goal to be determined 1 04/20/2008 Overview: Modified per HTN protocol #16. Reflux esophagitis 1 documented as of this encounter (statuses as of 11/08/2023) Immunizations Name Administration Dates Next Due COVID-19 mRNA, LNP-s, No Pre serve, 2-Dose Series ([employer]) 03/13/2021,07/11/2020,06/20/2020 Hepatitis B, 20+ yrs 01/08/2022,09/08/2021,03/13 PPD [...] encounter Miscellaneous Notes * Telephone Encounter - Polina Murguia OSA - 11/08/2023 10:01 AM EDT LMOM for patient to call and schedule. JASKARAN Mcallister * Telephone Encounter - Justine Izquierdo OSA - 11/08/2023 9:33 AM EDT Pt has updated phone numbers now. Please call pt to schedule documented in this encounter Plan of Treatment Upcoming Encounters Date Type Department Care Team (Late st Contact Info) Description 11/10/2023 8:00 AM EDT Office Visit General Internal Medicine [facility] [place] [address] [place] [address] Dorinda Bustillos PA-C [address] [place] [address] 11/22/2023 10:20 AM EDT Office Visit General Internal Medicine [facility] [place] [address] [place] [address] Becky Olson MD [address] [place] [address] 12/08/2023 9:00 AM EDT Imaging Radiology [facility] [address] [place] [address] 05/18/2024 10:00 AM EST Office Visit Neurology [facility] [address] [place] [address] Yuridia Kendall MD [address] [place] [address] Scheduled Procedures Name Priority Associated Diagnoses Date/Ti [...] filedocumented as of this encounter Care Teams Machine Turner Relationship Specialty Start Date End Date Becky Olson MD 200 [place] [address] PCP - General Internal Medicine 01/15/21 documented as of this encounter
--- NOTE | 2024-01-24 15:44 | History & Physical Report ---
Date of Service January 24, 2024 Assessment & Plan (1) Ambulatory dysfunction: Plan: History of longstanding pulmonary dysfunction walks with a walker at home Condition got worse since Wednesday last associated with generalized weakness Reported to have dragging of the right foot during ambulation but no evidence of focal neurological deficit on examination in the emergency room CT of the head was unremarkable She will have PT and OT evaluation prior to discharge (2) Generalized weakness: Plan: No apparent cause found (3) Extrapyramidal movement disorder: Plan: Ongoing extrapyramidal movement disorder Not worse as per the patient (4) Depression with anxiety: Plan: Has had anxiety episode recently but denies any significant symptoms right now H/O Schezophrenai No issues now (5) Intellectual disability: (6) Hypothyroidism: Plan: Continue supplement (7) Prediabetes: (8) Dyslipidemia: Plan DVT prophylaxis SCDshistory of GI bleed CODE STATUS DNR/DNI as per the POA History of Present Illness Chief Complaint: Generalized weakness, unsteady with gait and noted to have dragging right foot Primary Care Provider: Becky Olson MD She is a 58-year-old female with significant past medical history of schizophrenia, bipolar affective disorder, depression with anxiety, mild intellectual disability, benign neoplasm of the abdominal gland, hypothyroidism and hyperlipidemia and also history of benign neoplasm of the abdomen and lung apparently has been complaining of unsteady gait for a long time. Recently she has had nervous breakdown and wanted to see a physician which was delayed and she did not take it easily and since then her condition has gotten worse with more unsteady gait and also was noted to be generalized weak this Wednesday that she could not get out of bed. She denies any any fever and chills, any chest pain shortness of breath or palpitation, any abdominal pain nausea or vomiting, any problem with urine and her bowel habit. She uses a walker to move around. Upon investigations came out to be negative and the scan of the head is negative as well and no focal neurodeficit noted on examination. She was admitted to medical floor for continuation of care and get PT OT evaluation prior to discharge. Allergies Allergy/AdvReac Type Severity Reaction Status Date / Time No Known Drug Allergies Allergy Unknown Verified 09/22/23 17:27 Home Medications Medication Instructions Recorded Confirmed Type bupropion HCl 300 mg 24 hr tablet, 300 mg PO QAM 01/19/19 01/24/24 History extended release (Wellbutrin XL) prazosin 1 mg capsule 1 mg PO HS 10/19/22 01/24/24 History gabapentin 100 mg capsule 100 mg PO HS 08/11/23 01/24/24 History mecobalamin (vitamin B12) 5,000 5,000 mcg PO 08/11/23 01/24/24 History mcg chewable tablet riboflavin (vitamin B2) 400 mg 400 mg PO QA 08/11/23 01/24/24 History tablet calcium 600 mg (as 1 cap PO DAILY 09/22/23 01/24/24 History carbonate)-vitamin D3 12.5 mcg (500 unit) capsule (Calcium with Vit D3) docusate sodium 100 mg capsule 100 mg PO HS 09/22/23 01/24/24 History (Colace) levothyroxine 50 mcg tablet 50 mcg PO QA 09/22/23 01/24/24 History magnesium oxide 400 mg PO QA 09/22/23 01/24/24 History pantoprazole 40 mg tablet,delayed 40 mg PO [facility] 09/22/23 01/24/24 History release furosemide 20 mg tablet 20 mg PO DAILY 01/24/24 01/24/24 History lumateperone 42 mg capsule 42 mg PO 01/24/24 01/24/24 History (Caplyta) spironolactone 50 mg tablet 50 mg PO DAILY 01/24/24 01/24/24 History (Aldactone) vitamin E 670 mg (1,000 unit) 670 mg PO DAILY 01/24/24 01/24/24 History capsule Past Med/Surg History Problem List (Updated 01/24/24 @ 15:07 by Sho Calderon MD) Ambulatory dysfunction (Acute) Generalized weakness (Acute) Extrapyramidal movement disorder GERD (gastroesophageal reflux disease) (Chronic) CAH 21OH (congenital adrenal hyperplasia due to 21-hydroxylase deficiency), late onset (Chronic) Prediabetes (Chronic) Allergic rhinitis (Chronic) Hirsutism (Chronic) Depression with anxiety (Chronic) Intellectual disability (Chronic) Vitamin D deficiency (Chronic) Hypothyroidism (Chronic) Obesity (Chronic) Acanthosis nigricans (Chronic) Dyslipidemia (Chronic) Medical History Lower extremity pain, left Fall Dehydration Acute kidney injury Dizziness and giddiness Hypokalemia due to excessive gastrointestinal loss of potassium Post-ERCP acute pancreatitis Pre-diabetes Allergic rhinitis Intellectual disability Diverticular disease GERD (gastroesophageal reflux disease) Bipolar disorder Depression Anxiety Hypothyroidism Russ's thyroiditis Hypertension Poor historian Asthma Anemia GI bleed Surgical History History of tooth extraction H/O colonoscopy H/O endoscopy Hx laparoscopic cholecystectomy Family History Father Coronary heart disease Social History Smoking Status: Never smoker Second Hand Exposure: No; Do You Dip or Chew Tobacco: No; Tobacco Cessation Education Requested by Patient: No Hx Alcohol Use: No Hx Substance Use: No Preferred Language: Malawian Communication Ability: Effective Project Estimator Required: No Beliefs That Will Affect Care: None Current Living Situation: Alone Current Living Situation Comment: appartment Other Information That Helps Us Care for You: No Feels Safe at Home: Yes Safety Concerns: Feels Safe At This Time Assistive Devices: Cane, Glasses and Walker Review of Systems Review of Systems: All systems reviewed and are unremarkable except as noted below Physical Exam Physical Exam: Lying in bed with extraparametal movements involving the face and upper extremities mainly without any other distress Constitutional: average body habitus; not ill appearing Eyes: PERRL, conjunctivae normal, anicteric sclerae ENMT: external ear and nose normal, oropharynx normal Neck: trachea midline, no thyromegaly Respiratory: no respiratory distress Auscultation: lungs clear to auscultation bilaterally Cardiovascular: Rate/Rhythm: regular rate and regular rhythm; not tachycardic Heart Sounds: normal S1 and normal S2; no murmur Extremities: no edema Gastrointestinal (Abdomen): Inspection/Auscultation: normal bowel sounds; abdomen not distended Percussion/Palpation: abdomen soft; abdomen nontender Musculoskeletal: No acute arthritis involving any of the joint Neurologic: normal touch/pain/proprioception and moves all extremities; no focal motor deficits and not confused Has extraparametal movements involving the face and the upper extremities and these are not worse compared with before Psychiatric: Mild intellectual disability Lymphatic: no cervical or axillary lymphadenopathy Results & Data Results & Data Vital Signs (Past 12 Hours) Vital Signs Temp Pulse Pulse Resp BP BP Pulse Ox 01/24/24 15:00 89 18 132/73 97 01/24/24 13:22 91 H 21 145/95 H 94 01/24/24 10:30 78 20 96 01/24/24 10:21 36.5 C 98 H 18 112/59 L 96 01/24/24 10:18 78 20 144/85 H 96 O2 Del Method 01/24/24 15:00 Room Air 01/24/24 13:22 Room Air 01/24/24 10:30 Room Air 01/24/24 10:21 Room Air 01/24/24 10:18 Room Air Laboratory Results Short CBC 01/24/24 Range/Units 10:35 WBC 6.05 (4.8-10.8) K/ul Hgb 13.5 (12.0-16.0) g/dl Hct 41.2 (37.0-47.0) % Plt Count 250 (130-400) K/uL BMP 01/24/24 10:35 Sodium 141 Potassium 3.7 Chloride 105 Carbon Dioxide 28 BUN 11 Creatinine 0.93 Glucose 102 H Calcium 10.3 Liver Function 01/24/24 Range/Units 10:35 Total Bilirubin 0.5 (0.2-1.0) mg/dl AST 17 (13-39) U/L ALT 17 (7-52) U/L Alkaline Phosphatase 90 (34-104) U/L Albumin 4.7 (3.4-5.0) gm/dl Urine 01/24/24 Range/Units Unknown Urine Color Dark Yellow Urine Appearance Clear (Clear) Urine pH 5.5 (4.5-7.5) Ur Specific [place] 1.028 (1.000-1.030) Urine Protein Negative (Negative) Urine Glucose (UA) Negative (Negative) Code Status & VTE Plan VTE Prophylaxis Plan VTE Prophylaxis will be ordered: Yes
[2024-01-24] MEDS: CYANOCOBALAMIN (B-12) 2,500 MCG TABLET PO SCH (18:46)
[2024-01-24] MEDS: INFLUENZA VACC TS2024-25(6m+)/PF (IIV3) 0.5mL Syr IM ONE (20:33)
[2024-01-24] MEDS: DOCUSATE SODIUM 100 MG CAP PO SCH (20:33)
[2024-01-24] MEDS: GABAPENTIN 100 MG CAP PO SCH (20:46)
[2024-01-24] MEDS: PRAZOSIN HCL 1 MG CAP PO SCH (20:46)
[2024-01-24] MEDS: ACETAMINOPHEN 1,000 MG/100 ML VIAL IV STA (21:30)
[2024-01-25] MEDS: FAMOTIDINE 20MG IV PUSH 20 MG/5 ML SYR IV STA (04:03)
[2024-01-25] MEDS: LEVOTHYROXINE SODIUM 50 MCG TABLET PO SCH (05:40)
[2024-01-25] MEDS: PANTOprazole 40 MG TAB PO SCH (08:02)
[2024-01-25] MEDS: MAGNESIUM OXIDE 400 MG TAB PO SCH (08:02)
[2024-01-25] MEDS: FUROSEMIDE 20 MG TAB PO SCH (08:02)
[2024-01-25] MEDS: SPIRONOLACTONE 25 MG TAB PO SCH (08:03)
[2024-01-25] MEDS: CALCIUM 600MG + VIT D 400 IU TAB PO SCH (08:03)
[2024-01-25] MEDS: buPROPion XL 300 MG TABCR PO SCH (08:03)
[2024-01-25] MEDS ORDERED: NON-FORMULARY MEDICATION (Riboflavin (Vitamin B2) 400 mg tablet) PO SCH (09:00)
[2024-01-25] MEDS ORDERED: VITAMIN E PO SCH (09:00)
--- NOTE | 2024-01-25 11:54 | Hospitalist Progress Note ---
Date of Service January 25, 2024 Assessment & Plan (1) Ambulatory dysfunction: (2) Generalized weakness: (3) Extrapyramidal movement disorder: (4) Depression with anxiety: (5) Intellectual disability: (6) Hypothyroidism: Plan: Continue supplement (7) Prediabetes: (8) Dyslipidemia: Plan This is a 58-year-old female who has a significant past medical history of hyperlipidemia, hypothyroidism, prediabetes, congenital adrenal hyperplasia, NAFLD, schizophrenia, bipolar disorder, extrapyramidal movement disorder, depression with anxiety and intellectual disability who presents to ED secondary to worsening ambulatory dysfunction. It was also reported that she had a, "nervous breakdown." Generalized ambulatory dysfunction Extrapyramidal movement disorder admitted to med/surg consult PT pt with chronic ambulatory dysfxn that has recently been worsening Per CM pts rehabilitation caseworker called in due to recent medication changes and does not seem to be tolerating them, it was requested from them we get a psych consult Schizophrenia Bipolar disorder EPMD Dep/Anx pt follows Katt Walden PA-C recently has had med changes she was "weaned off Zyprexa in Oct. Off Benztropine a while ago. Started on Caplyta in Oct/Nov and has has several increases of that. Last increase was up to 42 mg on 01/11 and it's not working. Her mood has been like a roller coaster. Angry, agitated, yelling, crying, and then calm. Body movements have escalated. Making "risky" statements and mentioned about wanting to kill a staff member at one point. She has also been dizzy for months." - per outpt CM Pt is refusing psych; however I do not feel she has adequate insight on this and will be requesting a formal consultation Hypothyroidism: chronic, stable, continue Synthroid DVT prophylaxis SCDshistory of GI bleed CODE STATUS DNR/DNI as per the POA PCP: Wesley I spent a total of 46 minutes minutes reviewing notes, outpatient records, labs, medication, coordinating, documenting and providing care for this patient excluding time spent in the performance of separately billed services. Admission and Anticipated Discharge Date Admission Date: January 24, 2024 Supervising Physician Co-Signing Physician Notes Chart reviewed. Discussed the above provider. Patient presented with generalized weakness and ambulatory dysfunction Plan to have PT OT evaluation Plan to obtain psychiatric evaluation given history of depression and anxiety. I have reviewed the advanced practitioner's documentation, and I agree with, and take responsibility for the plan of care Subjective RAMBO. she denies homicidal or suicidal ideations. Denies f/c/s, chest pain, sob, n/v/d. She is refusing to see psychiatrist. She states she follows with Katt Clifford. She reports recently having med adjustments but unsure what meds. Review of Systems Review of Systems: All systems reviewed & are unremarkable except as noted in HPI & below Physical Exam Physical Exam: Gen: WD/WN, F, sitting in bed, tardive dyskinesia movements, A&O x3, tangential HEENT: Normocephalic, atraumatic, conjunctivae moist, sclerae anicteric, mucous membranes moist. Lung: Clear to Auscultation bilaterally, no wheezes/rales/rhonchi Heart: Regular rate, regular rhythm, no murmurs, rubs, or gallops Abdomen: Soft, NT, ND +BS x 4 Extremities: No edema Skin: Warm, no rash, negative turgor. Results & Data Results & Data Vital Signs (Past 12 Hours) Vital Signs Temp Pulse Resp BP Pulse Ox O2 Del Method 01/25/24 07:04 36.6 C 90 16 150/72 H 94 Room Air 01/25/24 03:51 73 20 126/67 95 Room Air Laboratory Results Urine 01/24/24 Range/Units Unknown Urine Color Dark Yellow Urine Appearance Clear (Clear) Urine pH 5.5 (4.5-7.5) Ur Specific [place] 1.028 (1.000-1.030) Urine Protein Negative (Negative) Urine Glucose (UA) Negative (Negative) Medications Administered Current Inpatient Medications Bupropion HCl (Bupropion Xl 300 Mg Tabcr) 300 mg PO QAM [facility] Stop: 02/24/24 08:59 Last Admin: 01/25/24 08:03 Dose: 300 mg Calcium/Vitamin D (Calcium 600mg + Vit D 400 Iu Tab) 1 tab PO DAILY [facility] Stop: 02/24/24 08:59 Last Admin: 01/25/24 08:03 Dose: 1 tab Cyanocobalamin (Cyanocobalamin (B-12) 2,500 Mcg Tablet) 5,000 mcg PO DAILY [facility] Stop: 02/23/24 17:29 Last Admin: 01/25/24 08:03 Dose: 5,000 mcg Docusate Sodium (Docusate Sodium 100 Mg Cap) 100 mg PO HS [facility] Stop: 02/23/24 20:59 Last Admin: 01/24/24 20:33 Dose: 100 mg Furosemide (Furosemide 20 Mg Tab) 20 mg PO DAILY [facility] Stop: 02/24/24 08:59 Last Admin: 01/25/24 08:02 Dose: 20 mg Gabapentin (Gabapentin 100 Mg Cap) 100 mg PO [facility] Stop: 02/23/24 20:59 Last Admin: 01/24/24 20:46 Dose: 100 mg Levothyroxine Sodium (Levothyroxine Sodium 50 Mcg Tablet) 50 mcg PO DAILYBB [facility] Stop: 02/24/24 06:29 Last Admin: 01/25/24 05:40 Dose: 50 mcg Magnesium Oxide (Magnesium Oxide 400 Mg Tab) [facility] [place]: 02/24/24 08:59 Last Admin: 01/25/24 08:02 Dose: 400 mg Miscellaneous (Caplyta 42mg--Order Awaiting Action) 1 each N/A QS [facility] Stop: 02/24/24 00:00 Last Admin: 01/25/24 08:03 Dose: Not Given Pantoprazole Sodium (Pantoprazole 40 Mg Tab) 40 [facility] [place] Stop: 02/24/24 08:59 Last Admin: 01/25/24 08:02 Dose: 40 mg Prazosin HCl (Prazosin Hcl 1 Mg Cap) 1 mg PO [facility] Stop: 02/23/24 20:59 Last Admin: 01/24/24 20:46 Dose: 1 mg Spironolactone (Spironolactone 25 Mg Tab) 50 mg PO DAILY [facility] Stop: 02/24/24 08:59 Last Admin: 01/25/24 08:03 Dose: 50 mg
--- NOTE | 2024-01-25 15:20 | Psychiatric Consultation ---
Date of Consultation January 25, 2024 Impression / Recommendations Impression Diagnostically difficulty to weigh in given her limited cooperation with interview but she denies any acute safety concerns and per RN has been behaviorally cooperative and without any acute emotional/behavioral concerns. Collateral from outpt CM suggestive of recent mood lability and increased irritability in context of co-occurring psychiatric conditions, ID and possible worsening cognitive impairment. Given recent change from Wellbutrin to fluoxetine, which seems appropriate given concerns for increased agitation with Wellbutrin, would not advise further medication changes at this time. Acute risk of self harm and harm to others are low given denial of SI and HI. Appropriate for outpt level of psychiatruc care once medically stable for discharge. Overall, I spent a total of 45 minutes with this case including review of chart records, review of labwork, review of EKG QTc, direct evaluation of the patient at bedside, counseling the patient, discussion of the patient with the Nurse and with the hospitalist provider, discussion with the psychiatric liason during clinical rounds, review of collateral historian information and documentation in the electronic health record. (1) Ambulatory dysfunction: (2) Intellectual disability: (3) Depression with anxiety: (4) Schizoaffective disorder: Plan -Discontinue Wellbutrin -Start fluoxetine 10mg daily to reflect recent outpt changes -Continue Caplyta and prazosin as ordered -If dizziness or ambulatory dysfunction symptoms persist could consider stopping Caplyta in exchange for abilify 5mg daily -For behavioral emergency would use: olanzapine 2.5mg IM (never combine with IM or IV benzos), check QTc if multiple doses requires. Do not exceed 10mg in 24 hours. Psych History Identifying Data 58 yo woman with hx of schizophrenia, bipolar affective disorder, depression with anxiety, mild intellectual disability, benign neoplasms, hypothyroidism and hyperlipidemia admitted medically for ambulatory dysfunction. Psychiatry consulted for medication recommendations. Chief Complaint "I won't talk to you". History of Present Illness Yessy admitted for ambulatory dysfunction. She was very resistant to speaking with psychiatry. Tells me "I won't talk to you" but does agree to allow me to ask her two safety questions and denies both SI and denies HI. She declines to participate with interview any further but does thank me politely when I leave. Speaking to RN apparently pt has been cooperative, no behavioral issues. Collateral from outpt CM per CM note: "Received a phone call from the pt's intellectual restaurant and bar manager, Kristine [phone]. She reports that the pt has had medication changes recently and does not seem to be tolerating them well. She's requesting a psych consult. MH management is through [facility] [place]. Kristine reports that the pt weaned off Zyprexa in Oct and off of Benztropine a while ago. She was started on Caplyta in Oct/Nov and has had several increases of that. Last increase was up to 42 mg on 01/11 and it's not working. Her mood has been like a roller coaster. She'll become angry, agitated, yell and cry, and then become calm. Her body movements have escalated and she has been making "risky" statements and mentioned about wanting to kill a staff member at one point. She has also been dizzy for months. She recently had a neuropsych eval d one and may have the onset of dementia. She currently lives alone in an COPE apartment at [facility] and has daytime staff Wednesday - Wednesday. She ambulates with a cane. She is being reviewed for residential living home, but has not been receptive of that idea. Provider updated." -Review of outpt scripts shows most recent scripts for Caplyta, prazosin, and initiation of fluoxetine 10mg daily. Appears Wellbutrin XL 300mg was discontinued in November. History of olanzapine up to 7.5mg per script records. Allergies Allergy/AdvReac Type Severity Reaction Status Date / Time No Known Drug Allergies Allergy Unknown Verified 09/22/23 17:27 Home Medications Medication Instructions Recorded Confirmed Type prazosin 1 mg capsule 1 mg PO HS 10/19/22 01/24/24 History gabapentin 100 mg capsule 100 mg PO HS 08/11/23 01/24/24 History mecobalamin (vitamin B12) 5,000 5,000 mcg PO UD 08/11/23 01/24/24 History mcg chewable tablet riboflavin (vitamin B2) 400 mg 400 mg PO QAM 08/11/23 01/24/24 History tablet calcium 600 mg (as 1 cap PO DAILY 09/22/23 01/24/24 History carbonate)-vitamin D3 12.5 mcg (500 unit) capsule (Calcium with Vit D3) docusate sodium 100 mg capsule 100 mg PO HS 09/22/23 01/24/24 History (Colace) levothyroxine 50 mcg tablet 50 mcg PO QAM 09/22/23 01/24/24 History magnesium oxide 400 mg PO QAM 09/22/23 01/24/24 History pantoprazole 40 mg tablet,delayed 40 mg PO QAM 09/22/23 01/24/24 History release furosemide 20 mg tablet 20 mg PO DAILY 01/24/24 01/24/24 History lumateperone 42 mg capsule 42 mg PO HS 01/24/24 01/24/24 History (Caplyta) spironolactone 50 mg tablet 50 mg PO DAILY 01/24/24 01/24/24 History (Aldactone) vitamin E 670 mg (1,000 unit) 670 mg PO DAILY 01/24/24 01/24/24 History capsule fluoxetine 10 mg capsule 10 mg PO DAILY 01/25/24 01/25/24 History Patient History Medical History Lower extremity pain, left Fall Dehydration Acute kidney injury Dizziness and giddiness Hypokalemia due to excessive gastrointestinal loss of potassium Post-ERCP acute pancreatitis Pre-diabetes Allergic rhinitis Intellectual disability Diverticular disease GERD (gastroesophageal reflux disease) Bipolar disorder Depression Anxiety Hypothyroidism Russ's thyroiditis Hypertension Poor historian Asthma Anemia GI bleed Surgical History History of tooth extraction H/O colonoscopy H/O endoscopy Hx laparoscopic cholecystectomy Family History Father Coronary heart disease Social History Smoking Status: Never smoker Second Hand Exposure: No; Do You Dip or Chew Tobacco: No; Tobacco Cessation Education Requested by Patient: No Hx Alcohol Use: No Hx Substance Use: No Preferred Language: Peruvian Communication Ability: Effective Shop Clerk Required: No Beliefs That Will Affect Care: None Current Living Situation: Alone Current Living Situation Comment: appartment Other Information That Helps Us Care for You: No Feels Safe at Home: Yes Safety Concerns: Feels Safe At This Time Assistive Devices: Cane, Glasses and Walker Physical Exam Vital Signs (Past 24 Hours): Last Vital Signs Temp 36.6 C 01/25/24 15:02 Pulse 78 01/25/24 15:02 Resp 16 01/25/24 15:02 BP 124/79 01/25/24 15:02 Pulse Ox 98 01/25/24 15:02 O2 Del Method Room Air 01/25/24 15:02 Results & Data (PSY) Medications Administered Bupropion HCl (Bupropion Xl 300 Mg Tabcr) 300 mg PO QAM [facility] Stop: 02/24/24 08:59 Last Admin: 01/25/24 08:03 Dose: 300 mg Documented By: UZAIR Calcium/Vitamin D (Calcium 600mg + Vit D 400 Iu Tab) 1 tab PO DAILY [facility] Stop: 02/24/24 08:59 Last Admin: 01/25/24 08:03 Dose: 1 tab Documented By: UZAIR Cyanocobalamin (Cyanocobalamin (B-12) 2,500 Mcg Tablet) 5,000 mcg PO DAILY [facility] Stop: 02/23/24 17:29 Last Admin: 01/25/24 08:03 Dose: 5,000 mcg Documented By: Admin: 01/24/24 18:46 Dose: Not Given Documented By: NOLA Docusate Sodium (Docusate Sodium 100 Mg Cap) 100 mg PO [facility] Stop: 02/23/24 20:59 Last Admin: 01/24/24 20:33 Dose: 100 mg Documented By: EZEKIEL Furosemide (Furosemide 20 Mg Tab) 20 mg PO DAILY [facility] Stop: 02/24/24 08:59 Last Admin: 01/25/24 08:02 Dose: 20 mg Documented By: UZAIR Gabapentin (Gabapentin 100 Mg Cap) 100 mg PO [facility] Stop: 02/23/24 20:59 Last Admin: 01/24/24 20:46 Dose: 100 mg Documented By: EZEKIEL Levothyroxine Sodium (Levothyroxine Sodium 50 Mcg Tablet) 50 mcg PO DAILYBB [facility] Stop: 02/24/24 06:29 Last Admin: 01/25/24 05:40 Dose: 50 mcg Documented By: EZEKIEL Magnesium Oxide (Magnesium Oxide 400 Mg Tab) 400 mg PO QAM [facility] Stop: 02/24/24 08:59 Last Admin: 01/25/24 08:02 Dose: 400 mg Documented By: UZAIR Miscellaneous (Caplyta 42mg--Order Awaiting Action) 1 each N/A QS [facility] Stop: 02/24/24 00:00 Last Admin: 01/25/24 08:03 Dose: Not Given Documented By: Admin: 01/24/24 23:47 Dose: Not Given Documented By: EZEKIEL Pantoprazole Sodium (Pantoprazole 40 Mg Tab) 40 mg PO QAM [facility] Stop: 02/24/24 08:59 Last Admin: 01/25/24 08:02 Dose: 40 mg Documented By: UZAIR Prazosin HCl (Prazosin Hcl 1 Mg Cap) 1 mg PO HS [facility] Stop: 02/23/24 20:59 Last Admin: 01/24/24 20:46 Dose: 1 mg Documented By: EZEKIEL Spironolactone (Spironolactone 25 Mg Tab) 50 mg PO DAILY [facility] Stop: 02/24/24 08:59 Last Admin: 01/25/24 08:03 Dose: 50 mg Documented By: UZAIR Coding Level of Care Code 42807 IN/OBS CONSULT LVL 3,45M Diagnoses Ambulatory dysfunction R26.2 Intellectual disability F79 Depression with anxiety F41.8 Schizoaffective disorder F25.9
[2024-01-26] MEDS: ACETAMINOPHEN 325 MG TAB PO PRN (05:28)
[2024-01-26] MEDS: FLUoxetine HCL 10 MG CAP PO SCH (08:28)
[2024-01-26 08:33] LABS: BUN Creatinine Ratio 20.4 (10-20); Calcium 9.9 mg/dl (8.6-10.3); Creatinine Clr Calc Pharmacy 50.9 ml/min
[2024-01-26 08:38] LABS: Hematocrit (blood only) 42.4 % (37.0-47.0); Mean Corpuscular Hemoglobin 29.4 pg (25.0-34.0); Mean Corpuscular Volume 88.9 fL (80.0-100.0); Mean Platelet Volume 10.1 fL (9.4-12.4); Platelet Count 261 K/uL (130-400); RDW Standard Deviation 42.3 fL (36.4-46.3); Red Blood Count 4.77 M/uL (4.20-5.40); White Blood Count 7.65 K/ul (4.8-10.8)
--- NOTE | 2024-01-26 11:44 | Electrocardiogram Report ---
Test Reason : Blood Pressure : */* mmHG Vent. Rate : 91 BPM Atrial Rate : 91 BPM P-R Int : 160 ms QRS Dur : 94 ms QT Int : 370 ms P-R-T Axes : 19 -5 -9 degrees QTcB Int : 455 ms Normal sinus rhythm Minimal voltage criteria for LVH, may be normal variant Poor R wave progression, consider anterior DE vs. lead placement vs. LVH Abnormal ECG When compared with ECG of 25-Jan-2024 16:19, (unconfirmed) No significant change was found Confirmed by Tunde Miles ([id number] on 01/26/2024 11:44:26 AM Referred By: REFERRED SELF Confirmed By: Tunde Miles
--- NOTE | 2024-01-26 12:30 | Hospitalist Progress Note ---
Date of Service January 26, 2024 Assessment & Plan (1) Ambulatory dysfunction: (2) Generalized weakness: (3) Extrapyramidal movement disorder: (4) Depression with anxiety: (5) Intellectual disability: (6) Hypothyroidism: (7) Prediabetes: (8) Dyslipidemia: Plan This is a 58-year-old female who has a significant past medical history of hyperlipidemia, hypothyroidism, prediabetes, congenital adrenal hyperplasia, NAFLD, schizophrenia, bipolar disorder, extrapyramidal movement disorder, depression with anxiety and intellectual disability who presents to ED secondary to worsening ambulatory dysfunction. It was also reported that she had a, "nervous breakdown." Generalized ambulatory dysfunction Extrapyramidal movement disorder admitted to med/surg consult PT pt with chronic ambulatory dysfxn that has recently been worsening Per CM pts caser shoe parts called in due to recent medication changes and does not seem to be tolerating them, it was requested from them we get a psych consult Schizophrenia Bipolar disorder EPMD Dep/Anx pt follows Katt Walden PA-C recently has had med changes she was "weaned off Zyprexa in Oct. Off Benztropine a while ago. Started on Caplyta in Oct/Nov and has has several increases of that. Last increase was up to 42 mg on 01/11 and it's not working. Her mood has been like a roller coaster. Angry, agitated, yelling, crying, and then calm. Body movements have escalated. Making "risky" statements and mentioned about wanting to kill a staff member at one point. She has also been dizzy for months." - per outpt CM Pt is refusing psych; however I do not feel she has adequate insight on this and will be requesting a formal consultation Per psych pt recently was on wellbutrin and this was discontinued in favor of prozac Hypothyroidism: chronic, stable, continue Synthroid DVT prophylaxis SCDshistory of GI bleed CODE STATUS DNR/DNI as per the POA PCP: Wesley Dispo: pt interested in rehab, she is medically stable discharge I spent a total of 46 minutes minutes reviewing notes, outpatient records, labs, medication, coordinating, documenting and providing care for this patient excluding time spent in the performance of separately billed services. Admission and Anticipated Discharge Date Admission Date: January 24, 2024 Supervising Physician Co-Signing Physician Notes Chart reviewed. Discussed the above provider. Patient presented with generalized weakness and ambulatory dysfunction PT OT evaluation-- recommending rehab. Psychiatry evaluated, no medication changes for now. Patient stable for DC to rehab. Patient agreeable for rehab. I have reviewed the advanced practitioner's documentation, and I agree with, and take responsibility for the plan of care Time spent: 15 minutes. Subjective NAEO. She feels less anxious today. She is interested in entertaining the rehab idea. She denies f/c/s, chest pain, sob,n/v/d. She reports a lump on her rib and requests imaging. Review of Systems Review of Systems: All systems reviewed & are unremarkable except as noted in HPI & below Physical Exam Physical Exam: Gen: WD/WN, F, sitting in bed, less tardive dyskinesia movements, A&O x3, able to hold a conversation HEENT: Normocephalic, atraumatic, conjunctivae moist, sclerae anicteric, mucous membranes moist. Lung: Clear to Auscultation bilaterally, no wheezes/rales/rhonchi Heart: Regular rate, regular rhythm, no murmurs, rubs, or gallops Abdomen: Soft, NT, ND +BS x 4 Extremities: No edema Skin: Warm, no rash, negative turgor. Results & Data Results & Data Vital Signs (Past 12 Hours) Vital Signs Temp Pulse Resp BP Pulse Ox O2 Del Method 01/26/24 07:59 36.9 C 88 18 132/83 95 Room Air Laboratory Results Short CBC 01/26/24 Range/Units 07:30 WBC 7.65 (4.8-10.8) K/ul Hgb 14.0 (12.0-16.0) g/dl Hct 42.4 (37.0-47.0) % Plt Count 261 (130-400) K/uL BMP 01/26/24 07:30 Sodium 143 Potassium 5.0 D Chloride 106 Carbon Dioxide 26 BUN 23 Creatinine 1.13 Glucose 118 H Calcium 9.9 Medications Administered Current Inpatient Medications Acetaminophen (Acetaminophen 325 Mg Tab) 650 mg PO Q6H PRN PRN Reason: Pain or Fever Stop: 02/25/24 04:45 Last Admin: 01/26/24 05:28 Dose: 650 mg Calcium/Vitamin D (Calcium 600mg + Vit D 400 Iu Tab) 1 tab PO DAILY JACINTA Stop: 02/24/24 08:59 Last Admin: 01/26/24 08:26 Dose: 1 tab Cyanocobalamin (Cyanocobalamin (B-12) 2,500 Mcg Tablet) 5,000 mcg PO DAILY JACINTA Stop: 02/23/24 17:29 Last Admin: 01/26/24 08:26 Dose: 5,000 mcg Docusate Sodium (Docusate Sodium 100 Mg Cap) 100 mg PO HS JACINTA Stop: 02/23/24 20:59 Last Admin: 01/25/24 21:06 Dose: 100 mg Fluoxetine HCl (Fluoxetine Hcl 10 Mg Cap) 10 mg PO DAILY JACINTA Stop: 02/25/24 08:59 Last Admin: 01/26/24 08:28 Dose: 10 mg Furosemide (Furosemide 20 Mg Tab) 20 mg PO DAILY JACINTA Stop: 02/24/24 08:59 Last Admin: 01/26/24 08:26 Dose: 20 mg Gabapentin (Gabapentin 100 Mg Cap) 100 mg PO HS JACINTA Stop: 02/23/24 20:59 Last Admin: 01/25/24 21:06 Dose: 100 mg Levothyroxine Sodium (Levothyroxine Sodium 50 Mcg Tablet) 50 mcg PO DAILYBB JACINTA Stop: 02/24/24 06:29 Last Admin: 01/26/24 05:28 Dose: 50 mcg Magnesium Oxide (Magnesium Oxide 400 Mg Tab) 400 mg PO QAM JACINTA Stop: 02/24/24 08:59 Last Admin: 01/26/24 08:26 Dose: 400 mg Miscellaneous (Caplyta 42mg--Order Awaiting Action) 1 each N/A QS JACINTA Stop: 02/24/24 00:00 Last Admin: 01/26/24 08:27 Dose: Not Given Pantoprazole Sodium (Pantoprazole 40 Mg Tab) 40 mg PO QAM JACINTA Stop: 02/24/24 08:59 Last Admin: 01/26/24 08:27 Dose: 40 mg Prazosin HCl (Prazosin Hcl 1 Mg Cap) 1 mg PO HS JACINTA Stop: 02/23/24 20:59 Last Admin: 01/25/24 21:06 Dose: 1 mg Spironolactone (Spironolactone 25 Mg Tab) 50 mg PO DAILY JACINTA Stop: 02/24/24 08:59 Last Admin: 01/26/24 08:28 Dose: 50 mg
--- NOTE | 2024-01-26 15:38 | XRay Report ---
XR ribs RT min 2V CLINICAL HISTORY: bump on rib TECHNIQUE: 3 views of the right ribs were obtained. Single frontal view of the chest was obtained. Comparison: Comparison is made to chest radiograph 01/16/2024 FINDINGS: No acute fractures are seen. The chest wall and soft tissues are normal. No lines and tubes are seen. The cardiomediastinal silhouette is normal. The lungs are clear. No evid ence of pleural effusion or pneumothorax. IMPRESSION: No evidence of acute fracture or other acute abnormalities in the visualized portions of the chest. ACT 112: Negative or not required by law. Electronically signed by: Gallo Murillo M.D. 01/26/2024 3:37 PM
[2024-01-26] MEDS: MELATONIN 3 MG TAB PO SCH (20:58)
--- NOTE | 2024-01-27 00:18 | Communication Note ---
Date of Service: January 27, 2024 Patient with achy pleuritic right-sided chest pain as per RN. SBP 140s, heart rate 120s. Chest pain worse after nitro administration. EKG as per my interpretation rate 130s, sinus tachycardia, normal axis, ST depression lateral leads, PVCs AP Atypical chest pain Symptomatic PVCs Rule out PE PCU transfer Lopressor for symptomatic PVCs CT chest PE study Check troponin Further management contingent on above workup results.
[2024-01-27] MEDS: NITROGLYCERIN SL 0.4 MG/TAB TAB SL STA (00:21)
[2024-01-27] MEDS: oxyCODONE HCL IR 5 MG TAB (IMMEDIATE RELEASE) PO STA (00:52)
[2024-01-27] MEDS: METOPROLOL TARTRATE 25 MG TAB PO STA (01:09)
[2024-01-27 01:11] LABS: Basophils # (auto) 0.07 K/uL (0.00-0.20); Basophils % (auto) 0.8 %; Eosinophils % (auto) 1.1 %; Hematocrit (blood only) 40.8 % (37.0-47.0); Hemoglobin 13.8 g/dl (12.0-16.0); Immature Granulocytes # (auto) 0.01 K/uL (0.01-0.20); Immature Granulocytes % (auto) 0.1 %; Lymphocytes # (auto) 2.67 K/uL (1.20-3.40); Lymphocytes % (auto) 28.7 %; Mean Corpuscular Hemoglobin 29.4 pg (25.0-34.0); Mean Corpuscular Hgb Conc 33.8 g/dL (32.0-36.0); Mean Corpuscular Volume 86.8 fL (80.0-100.0); Mean Platelet Volume 10.1 fL (9.4-12.4); Monocytes # (auto) 0.74 K/uL (0.11-0.59); Neutrophils # (auto) 5.71 K/uL (1.40-6.50); Neutrophils % (auto) 61.3 %; Platelet Count 262 K/uL (130-400); RDW Coefficient of Variation 12.9 % (11.5-14.5); RDW Standard Deviation 40.4 fL (36.4-46.3)
[2024-01-27 01:36] LABS: Troponin I High Sensitivity 3.5 pg/ml (0-14)
[2024-01-27] MEDS: OPTIRAY 320 125ml IV ONE (01:37)
[2024-01-27] MEDS: MAGNESIUM SULFATE / D5W 1 GM/100 ML BAG IV ONE (01:45)
[2024-01-27 01:46] LABS: Partial Thromboplastin Ratio 0.9; Partial Thromboplastin Time 24 Seconds (21-31)
[2024-01-27 01:51] LABS: BUN Creatinine Ratio 20.8 (10-20); Calcium 9.6 mg/dl (8.6-10.3); Creatinine Clr Calc Pharmacy 54.3 ml/min; Magnesium 1.9 mg/dl (1.7-2.4); Potassium 3.5 mmol/L (3.5-5.1)
[2024-01-27] MEDS: SODIUM CHLORIDE 0.45 % 1,000 ML IV ONE (01:58)
--- NOTE | 2024-01-27 02:56 | CT Scan Report ---
Exam(s): CTA CHEST IV Amt: 118 ML OPTIRAY 320 EXAM: CT Angiography Chest With Intravenous Contrast CLINICAL HISTORY: Reason for exam: cp. TECHNIQUE: Axial computed tomographic angiography images of the chest with intravenous contrast. CTDI is 14.53 mGy and DLP is 447.29 mGy-cm. Automated exposure control was utilized for the study. A dose lowering technique was utilized adhering to the principles of ALARA. MIP reconstructed images were created and reviewed. COMPARISON: None FINDINGS: Pulmonary arteries: No central or large pulmonary embolus identified. Evaluation of the pulmonary arterial branches is limited by motion artifact. Aorta: No acute findings. No aortic aneurysm or dissection. Lungs: Mild scattered atelectasis. No focal consolidation. Pleural space: Unremarkable. No significant effusion. No pneumothorax. Heart: Unremarkable. No cardiomegaly. No significant pericardial effusion. No evidence of RV dysfunction. Bones/joints: Degenerative changes of the spine. No acute fracture. No dislocation. Soft tissues: Unremarkable. Lymph nodes: Unremarkable. No enlarged lymph nodes. Gallbladder and bile ducts: Prior cholecystectomy. IMPRESSION: 1. No aortic aneurysm or dissection. 2. No central or large pulmonary embolus identified. Evaluation of the pulmonary arterial branches is limited by motion artifact. 3. No acute pulmonary parenchymal abnormality identified. Electronically signed by: Curt Black M.D. 01/27/24 02:55 AM
[2024-01-27] MEDS: POTASSIUM CHLORIDE PWD 20 MEQ PACK PO STA (04:12)
[2024-01-27] MEDS: LACTATED RINGER'S 1,000 ML IV ONE (04:15)
[2024-01-27] MEDS ORDERED: oxyCODONE HCL IR 5 MG TAB (IMMEDIATE RELEASE) PO PRN (05:15)
[2024-01-27] MEDS: METOPROLOL TARTRATE 1 MG/ML VIAL IV STA (06:00)
[2024-01-27 07:48] VITALS: RESP 19
[2024-01-27] MEDS: PSYLLIUM or GUAR GUM FIBER 4GM PACKET PO SCH (08:18)
[2024-01-27] MEDS: METOPROLOL TARTRATE 25 MG TAB PO SCH (08:18)
[2024-01-27 10:52] VITALS: O2SAT 98
--- NOTE | 2024-01-27 14:38 | Discharge Summary ---
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 Recently she has had nervous breakdown and wanted to see a physician which was delayed and she did not take it easily and since then her condition has gotten worse with more unsteady gait and also was noted to be generalized weak this Wednesday that she could not get out of bed. She denies any any fever and chills, any chest pain shortness of breath or palpitation, any abdominal pain nausea or vomiting, any problem with urine and her bowel habit. She uses a walker to move around. Upon investigations came out to be negative and the scan of the head is negative as well and no focal neurodeficit noted on examination. She was admitted to medical floor for continuation of care and get PT OT evaluation prior to discharge. Admission Exam Per Admitting Provider Physical Exam: Lying in bed with extraparametal movements involving the face and upper extremities mainly without any other distress Constitutional: average body habitus; not ill appearing Eyes: PERRL, conjunctivae normal, anicteric sclerae ENMT: external ear and nose normal, oropharynx normal Neck: trachea midline, no thyromegaly Respiratory: no respiratory distress Auscultation: lungs clear to auscultation bilaterally Cardiovascular: Rate/Rhythm: regular rate and regular rhythm; not tachycardic Heart Sounds: normal S1 and normal S2; no murmur Extremities: no edema Gastrointestinal (Abdomen): Inspection/Auscultation: normal bowel sounds; abdomen not distended Percussion/Palpation: abdomen soft; abdomen nontender Musculoskeletal: No acute arthritis involving any of the joint Neurologic: normal touch/pain/proprioception and moves all extremities; no focal motor deficits and not confused Has extraparametal movements involving the face and the upper extremities and these are not worse compared with before Psychiatric: Mild intellectual disability Lymphatic: no cervical or axillary lymphadenopathy Principal Diagnosis Generalized ambulatory dysfunction Extrapyramidal movement disorder Discharge Exam Gen: WD/WN, F, sitting in bed, less tardive dyskinesia movements, A&O x3, able to hold a conversation HEENT: Normocephalic, atraumatic, conjunctivae moist, sclerae anicteric, mucous membranes moist. Lung: Clear to Auscultation bilaterally, no wheezes/rales/rhonchi Heart: Regular rate, regular rhythm, no murmurs, rubs, or gallops Abdomen: Soft, NT, ND +BS x 4 Extremities: No edema Skin: Warm, no rash, negative turgor. Discharge Data Allergies Allergy/AdvReac Type Severity Reaction Status Date / Time No Known Drug Allergies Allergy Unknown Verified 09/22/23 17:27 Consultations 01/24/24 14:54 ED Decision to Admit Stat 01/25/24 12:31 Consult Psychiatry Routine Ordered Studies 01/24/24 10:30 CT head/brain wo con Stat 01/27/24 00:34 CT angio chest PE protocol Stat Hospital Course (1) Ambulatory dysfunction: (2) Generalized weakness: (3) Extrapyramidal movement disorder: (4) Depression with anxiety: (5) Intellectual disability: (6) Hypothyroidism: (7) Prediabetes: (8) Dyslipidemia: Plan Per Janna ARECHIGA's yesterday's progress note w/ addendum: This is a 58-year-old female who has a significant past medical history of hyperlipidemia, hypothyroidism, prediabetes, congenital adrenal hyperplasia, NAFLD, schizophrenia, bipolar disorder, extrapyramidal movement disorder, depression with anxiety and intellectual disability who presents to ED secondary to worsening ambulatory dysfunction. It was also reported that she had a, "nervous breakdown." Generalized ambulatory dysfunction Extrapyramidal movement disorder admitted to med/surg consult PT pt with chronic ambulatory dysfxn that has recently been worsening Per CM pts case management manager called in due to recent medication changes and does not seem to be tolerating them, it was requested from them we get a psych consult Schizophrenia Bipolar disorder EPMD Dep/Anx pt follows Katt Walden PA-C recently has had med changes she was "weaned off Zyprexa in Oct. Off Benztropine a while ago. Started on Caplyta in Oct/Nov and has has several increases of that. Last increase was up to 42 mg on 01/11 and it's not working. Her mood has been like a roller coaster. Angry, agitated, yelling, crying, and then calm. Body movements have escalated. Making "risky" statements and mentioned about wanting to kill a staff member at one point. She has also been dizzy for months." - per outpt CM Pt is refusing psych; however I do not feel she has adequate insight on this and will be requesting a formal consultation Per psych pt recently was on wellbutrin and this was discontinued in favor of prozac Hypothyroidism: chronic, stable, continue Synthroid DVT prophylaxis SCDshistory of GI bleed CODE STATUS DNR/DNI as per the POA PCP: Wesley Dispo: pt interested in rehab, she is medically stable discharge Addendum 01/27/2024: Patient was seen and examined at bedside as a follow-up of generalized ambulatory dysfunction. Patient agreeable for rehab and will be discharged to [facility], patient to continue with PT/OT at rehab facility. Psychiatry assisted with medication management for her psychiatric disorder while in hospital. Patient to follow-up with psychiatry as prior. Patient complained of right-sided chest pain in the night, troponin and CTA chest was sent. Troponin x 2 were negative, CTA chest negative for any infectious process or blood clot. Patient with no complaint of chest pain in the morning, EKG with no acute ST or T changes. Patient did not have any chest pain on deep breathing. She is being discharged to [facility] with following instruction at the point of discharge: Follow-up with your primary care physician within a week time and likely you will need labs CBC/CMP/magnesium/phosphorus. Continue with PT/OT at rehab facility. Continue to follow-up with the psychiatry as prior. Please make sure that you are able to get your medications today by calling your pharmacy before you leave the hospital so that your treatment continuity is not broken. Home Health Attestation I certify that this patient is under my care and that I, or a physicians food and beverage assistant manager working with me, had a face to-face encounter that meets the home health [id number] encounter requirements with this patient. The encounter with the patient was in whole, or in part, for the following medical condition, which is the primary reason for home health care (list medical condition): I certify that, based on my findings, the following services are medically necessary home health services: My clinical findings support the need for the above services because: Further, I certify that my clinical findings support that this patient is homebound (i.e. absences from home require considerable and taxing effort and are for medical reasons or caodaism services or infrequently or of short duration when for other reasons) because: Certification for Home Health Services: Based on the above findings, I certify that this patient is confined to the home and needs intermittent residential care, physical therapy and/or speech therapy or continues to need occupational therapy. The patient is under my care, and I have initiated the establishment of the plan of care. This patient will be followed by a physician who will periodically review the plan of care. Total Time Total Time Spent Total Time Spent (In Minutes): 40 Discharge Plan Discharge Items Patient Disposition: Transfer Inpatient Rehab Fac Reason For Visit: GENERALIZED WEAKNESS, AMBULATORY DYSFUNCTION Discharge Diagnosis: Generalized ambulatory dysfunction Extrapyramidal movement disorder Activity: Resume your previous activity Non-emergency contact: Primary Care Provider Call non-emergency contact if: you have any medication questions, your symptoms worsen and your temperature is above 101 Follow-up/Referrals: Becky Olson MD [Primary Care Provider] - Diet: Regular Addtl Attending Provider Instructions: Follow-up with your primary care physician within a week time and likely you will need labs CBC/CMP/magnesium/phosphorus. Continue with PT/OT at rehab facility. Continue to follow-up with the psychiatry as prior. Please make sure that you are able to get your medications today by calling your pharmacy before you leave the hospital so that your treatment continuity is not broken. Pending Studies at Discharge: No Stand-Alone Forms: My [facility] Skilled Items Patient informed of condition?: Yes DNR: Yes Discharge Level of Care: Acute rehab Communicable Disease: No Discharge Prognosis: Stable Lines: None Urinary Catheter: No Medications and DC Order Prescriptions: New metoprolol succinate 25 mg tablet extended release 24 hr 25 mg PO DAILY Qty: 30 0RF melatonin 3 mg Tablet 6 mg PO HS Qty: 30 0RF Continued gabapentin 100 mg capsule 100 mg PO HS riboflavin (vitamin B2) 400 mg tablet 400 mg PO QAM mecobalamin (vitamin B12) 5,000 mcg tablet,chewable 5,000 mcg PO UD Rx Instructions: has riboflavin listed as b12 on med list. Not clear if both medications are being taking prazosin 1 mg capsule 1 mg PO HS docusate sodium [Colace] 100 mg Capsule 100 mg PO HS calcium carbonate-vitamin D3 [Calcium 600 with Vitamin D3] 600 mg-12.5 mcg (500 unit) Capsule 1 cap PO DAILY magnesium oxide 400 mg magnesium Capsule 400 mg PO QAM levothyroxine 50 mcg tablet 50 mcg PO QAM pantoprazole 40 mg tablet,delayed release (DR/EC) 40 mg PO QAM vitamin E 670 mg (1,000 unit) Capsule 670 mg PO DAILY furosemide 20 mg Tablet 20 mg PO DAILY Caplyta 42 mg capsule 42 mg PO HS spironolactone [Aldactone] 50 mg tablet 50 mg PO DAILY fluoxetine 10 mg capsule 10 mg PO DAILY Discharge Orders: Discharge Order (Routine); Ordered 01/27/24 Ordered By: Brennan Trevino Admission Data Admit Date/Time: 01/24/24 15:32 Attending Provider: Brennan Trevino Admit Provider: Gillian Craven Primary Care Provider: Becky Olson Other Providers: [facility]; Gillian Craven; Rae Savage; Cristian Montesinos; Grace Curtis; Ree Ellis; Jalen Lazo; Brenna Davalos
[2024-01-27 14:52] VITALS: BP 123/80; TEMP 98.8
--- NOTE | 2024-01-27 15:01 | Electrocardiogram Report ---
Test Reason : Blood Pressure : */* mmHG Vent. Rate : 129 BPM Atrial Rate : 129 BPM P-R Int : 156 ms QRS Dur : 90 ms QT Int : 306 ms P-R-T Axes : 31 13 12 degrees QTcB Int : 448 ms Sinus tachycardia with frequent Premature ventricular complexes possible Anterior infarct (cited on or before 30-Dec-2010) Abnormal ECG When compared with ECG of 25-Jan-2024 16:21, Premature ventricular complexes are now Present Confirmed by Tunde Miles ([id number] on 01/27/2024 3:00:49 PM Referred By: REFERRED SELF Confirmed By: Tunde Miles
[2024-01-27 15:51] VITALS: PULSE 61
[2024-01-29 02:02] LABS: MDA negative; MDEA negative; MDMA (Ecstasy) Urine, Confirm negative
== END 2024-01-27 16:47 | DRG 92 ==
LOC: ED 10:18 → SUATTDRO 15:32 → EDINP 15:32 → 3N 17:39 → 2S 01-27 02:00